=== PATIENT | female | born 1960 | race Caucasian/White ===

== ENCOUNTER 2021-10-20 10:04 | Outpatient (CLI) | payer OTHER, SELFPAY ==
--- NOTE | 2021-10-20 11:00 | CRLHL7_ITS ---
For Patients: As a result of the Century Cures Act, medical imaging exams and procedure reports are released immediately into your electronic medical record. You may view this report before your referring provider. If you have questions, please contact your health care provider. INDICATION: Fallopian tube cancer follow-up, history of breast cancer TECHNIQUE: CT chest, abdomen and pelvis acquired with IV contrast. COMPARISON: CT chest abdomen pelvis 07/04/2021 FINDINGS: Chest: Cardiovascular structures: Heart size is normal. Thoracic aorta and main pulmonary artery are normal in caliber. Mediastinum and kiana: No mass or adenopathy. Lungs: Clear. Pleura and pericardium: No effusions. Chest wall and axilla: No mass or adenopathy. Bones: Unremarkable for age. Abdomen and Pelvis: Liver: Stable numerous hepatic cysts measuring up to 5.2 centimeters. Spleen: Unremarkable. Pancreas: Unremarkable. Gallbladder and bile ducts: Unremarkable. Kidneys: Stable sub centimeter hypodense lesion within the left kidney, likely cyst. Unremarkable. Adrenal glands: Unremarkable. GI tract: Diverticulosis. Appendix is normal. Vascular structures: Unremarkable. Lymph nodes: Unremarkable. Miscellaneous: Postsurgical changes along the anterior abdominal wall. A few supraumbilical small ventral midline abdominal wall hernias , both of which contain mesenteric fat and 1 which the transverse colon abuts. Pelvic Organs: Postsurgical changes of hysterectomy and BSO. Bones: Unremarkable for age. IMPRESSION: Stable abdomen and pelvis CT from July 04, 2021. Please note that all CT scans at this facility use dose modulation, iterative reconstruction, and/or weight-based dosing when appropriate to reduce radiation dose to as low as reasonably achievable. Dictated by Doris Marie MD @ 10/21/2021 3:25:10 PM (Electronically Signed)
== END 2021-10-20 10:05 | disposition home or self-care (01) ==
PROVIDERS: PCP Family Medicine; Visit Provider Internal Medicine Hematology & Oncology
DX: C57.01 Malignant neoplasm of right fallopian tube (principal); C50.912 Malignant neoplasm of unspecified site of left female breast
CPT/HCPCS: 71260; 74177; Q9967

== ENCOUNTER 2021-10-25 08:17 | Outpatient (RCR) | payer OTHER, SELFPAY ==
--- OUTSIDE RECORDS SUMMARY | 2021-10-13 09:27 | XMS_ITS | Continuity of Care Document ---
:1960 Author Allergies, Adverse Reactions, Alerts Allergen Type Severity Reaction Last Updated Verified Status Sulfa drugs Allergy Mild NAUSEA January Yes Active VOMITING 2020 Social History Smoking Status Status Start Date End Date Date of Observat ion Never smoked tobacco February 8:03am (finding) Observation Status Observation Response Date of Response History provided by Patient September 18, 2017 2:02p m Where do you live? Own home/apt September 18, 2017 2:02p m With whom do you live? 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 Encounter for screening for Active COVID-19 S/P total knee arthroplasty Active Medications Medication Status Dose Units Route Directions Qty Days Start End Ins tructions Date Date Anastrozole Active 1 MG PO Daily 90 90 Februar (Arimidex) 1 y , Mg TAB 2020 11:04am Calcium/Marianne Active 1 TAB PO Twice Daily 180 90 Februar min D With Meals , (Calcium 2020 Carbonate/Vi 11:04am tamin D) 600 Mg/400 Unit TAB Fluoxetine Active 10 MG PO Daily Hcl Gabapentin Active 100 MG PO Three Times 90 August A Day 2021 11:52am Levothyroxin Active 125 MCG PO Daily 30 e Sodium Lorazepam Active 0.5-1 MG PO Every 4 PRN Hours as Nausea/vomi ti needed ng Magnesium Active 400 MG PO Twice A Day 100 Decembe Oxide r 2020 4:02pm Multivitamin Active 1 TAB PO Daily 100 s (Multivitami n/Minerals) TAB Naproxen Active 1 TAB PO As Needed Sodium-Diphe nhydramin (Aleve Pm 220-25 Mg) 1 Tab TAB Omeprazole Active 40 MG PO Daily 30 Prochlorpera Active 10 MG PO Every 8-12 P RN zine Maleate Hours as Naus ea/vomiti needed ng Triease Active 1 CAP PO Daily Contains Seasonal lavender, peppermint and lemon oils. Xeo Brett Oil Active 2 CAP PO Daily Acetaminophe Disconti 1-2 TAB PO Every 4 October n/Hydrocodon nued Hours as , , e Bitart needed 2015 2015 (Hydrocodone 1:38pm 2:26pm -Acetaminoph en) 5 Mg/325 Mg TAB Acetaminophe Disconti 1 - 2 TAB PO Q4-6H Prn January n/Hydrocodon nued , ry e Bitart 2010, (Hydrocodone 10:01am 2012 -Acetaminoph 8:01am en) 5 Mg/500 Mg TAB Amoxicillin Disconti 2 GRAMS PO Once 4 Apruar 4 tabs (2 grams) by mouth 1 hour prior to dental nued y , y appointment 2017, 9:24am 2020 10:20a m Amoxicillin Disconti 2 GRAMS PO Once 4 4 tabs (2 grams) by mouth 1 hour prior to dental nued er ry appointment , 2015 1:20pm 9:24am Amoxicillin Disconti 2 GRAMS PO Once 4 Decembe August 4 t abs (2 grams) by mouth 1 hour prior to dental nued r , , appointment 2015 2016 11:08am 2:11pm Apixaban Disconti 2.5 MG PO Twice A Day 60 Decemb (Eliquis) nued er 2.5 Mg TAB 2020 8:47am Aspirin Disconti 325 MG PO Twice A Day September Buffered nued , , (2017 Carb-Mag 2:49pm 9:06am (Bufferin) 325 Mg TAB Aspirin Disconti 325 MG PO Twice A Day 60 October Buffered nued , (Nishant 2015 2nd, Carb-Mag 1:38pm 2015 (Buffered 10:02a Aspirin) 325 m Mg TAB Celecoxib Disconti 200 MG PO Twice A Day September nued , 2017 2018 2:49pm 9:06am Celecoxib Disconti 200 MG PO Twice A Day October Septem nued 1st, erin 2016 2nd, 1:38pm 2015 10:02a m Ciprofloxaci Disconti 500 MG PO Twice A Day January brua n Hcl nued 5th, ry (Cipro) 500 2010, Mg TAB 10:00am 2012 8:01am Docusate Disconti 100 MG PO Twice A Day October Sodium nued as needed , , (Docqlace) 2015 2015 100 Mg CAP 12:20pm 2:26pm Dronabinol Disconti 5 MG OR Twice A Day 60 21 May Raghavendra h nued , , 2021 2021 9:16am 8:59am Fluoxetine Disconti 20 MG PO Daily August Hcl (Prozac) nued , 20 Mg CAP 2017 2:20pm Fluoxetine Disconti 10 MG PO Daily Septem Hcl (Prozac) nued erin 10 Mg CAP 2015 10:02a m Fluticasone Disconti 1 PUFF INH Daily Octobe Propionate nued r 2nd, (Flovent 2015 Diskus) 50 10:12a Mcg AER m Hydrocodone- Disconti 1 TAB PO Every 6 Decembe Januar Acetaminophe nued Hours as r , y n needed 2019, (Hydrocodone 11:08am 2020 Bitartrate/A 10:20a c 5-325 Mg) m 1 Tab TAB Hydroxyzine Disconti 25-50 MG PO Every 3 September Pamoate nued Hours as , , needed 2017 2017 2:49pm 10:39a m Hydroxyzine Disconti 25-50 MG PO Every 3 October Pamoate nued Hours as , , needed for 2015 2015 Analgesic 1:38pm 2:26pm Enhancement Lorazepam Disconti 0.5-1 MG PO Every 4 January Octobe [place] N nued Hours as , r Nausea/vomi ti needed for 2020, ng Nausea/Vomit 3:43pm 2020 ing 9:10am Magnesium Disconti 400 MG PO Twice A Day November Decemb Oxide nued , er 2020, 2:35pm 2020 4:02pm Methylpredni Disconti 1 TAB PO As Directed [facility] DIRECTED solone nued y , , ON PACKAGE (Medrol 2021 2021 Dosepak) 4 9:33am 8:59am Mg ELLIOTT Methylpredni Disconti 1 TAB PO As Directed August DIRECTED solone nued , , ON PACKAGE (Medrol 2016 2016 Dosepak) 4 9:41am 11:36a Mg ELLIOTT m Metronidazol Disconti 500 MG PO Three Times January brua e nued A Day , ry 2010, 10:00am 2012 8:01am Montelukast Disconti 10 MG PO Bedtime as Decemb Sodium nued needed er (Singulair) , 10 Mg TAB 2015 10:33a m Multiple Disconti 1 HER PO Daily Decemb Vitamins W/ nued er Minerals , (Multi For 2016 Her) For Her 10:33a CAP m Oxycodone Disconti 2.5-1 MG PO Every September Hcl nued 0 Hours as , , needed 2017 2017 2:49pm 10:39a m Pegfilgrasti Disconti 6 MG SC Every April m-Jmdb nued Days , , (Fulphila) 2021 Mg/0.6 Ml 5:15pm 8:59am INJ Prochlorpera Disconti 10 MG PO Every 8-12 January obe PRN zine Maleate nued Hours as , r Naus ea/vomiti needed for 2020, ng Nausea/Vomit 3:43pm 2020 ing 9:10am Xeo [place] Disconti 2 CAPSULE PO Daily August nued 2017 2:23pm Immunizations Immunization Event Date Not Given Dose Bridge In[employer] Lot Vac cine Reason Number Number Informatio n Statement (VIS) Deta il COVID-19 Moderna June 30, 2020 COVID-19 Moderna July 28, 2020 Influenza January 202019 Tetanus/Diptheri September 14, 1 a 2004 Tdap November 26, (adolescent/adul 2014 t) Medical Equipment Device Date Implanted Device Details PowerPort M.R.I. Implantable February 20, 2021 BRANNON: [id number] Port Issuing Agency: [employer] Device Id: [id number] Expiration Date: 06-23-29 Lot Number: [id number] Advance Directives Advance Directive Response Recorded Date/Time Does Pt have Health Care No June 17, 2012 7:49am Directive? Has patient completed a No February 20 8:03am Health Care Directive? Insurance Providers Guarantor Edmar Morejon Address [address] [place] [id number] Contact Info. Home Phone: CELL Payer Policy Id Coverage Subscriber's Subscriber Effective Expira tion Id Name Id Date Date [facility] [id number] Edmar Morejon Plan of Treatment Future Tests Future scheduled test information is unavailable Pending Tests Pending diagnostic test information is unavailable Future Visits Future appointment information is unavailable Referrals to Other Providers Reason for Referral Start Provider Provider Contact Provider Address Referral Date Information Deandra Greer Phone: [facility] Sara Chand MD [address] [place] [address] [phone] Future Procedures Future procedure information is unavailable Future Medications Future medication information is unavailable Patient Instructions Aspirin (By mouth) Hydroxyzine (By mouth) Oxycodone, Rapid Release (By mouth) Celecoxib (By mouth) Knee Replacement (DC) Knee Replacement (DC)
[2021-10-20 10:41] LABS: Basophils Percent Auto 0.5 % (0.0-3.0); Eosinophils Percent Auto 2.6 % (0.0-7.0); Hematocrit 38.1 % (33.0-51.0); Hemoglobin* 12.3 gm/dL (12.0-16.0); Lymphocytes Percent Auto 23.1 % (20-44); Mean Corpuscular HGB Conc 32 gm/dL (32-36); Mean Corpuscular Hemoglobin 31 pg (26-34); Mean Corpuscular Volume 97 fL (80-100); Monocytes Percent Auto 11.1 % (0.0-11.0); Neutrophils Percent Auto 62.7 % (42.0-72.0); Platelet Count* 188 K/uL (140-440); RDW Coefficient of Variation % 13.4 % (11.5-15.5); Red Blood Count 3.93 m/uL (4.00-5.20); White Blood Count* 4.16 K/uL (4.50-11.00)
[2021-10-20 10:47] LABS: Slide Review Reflex No
[2021-10-20 10:52] LABS: Chloride* 106 mmol/L (96-114); Sodium* 138 mmol/L (135-149)
[2021-10-20 10:55] LABS: Alanine Aminotransferase* 20 U/L (4-35); Alkaline Phosphatase* 131 U/L (40-150); Aspartate Amino Transferase* 26 U/L (12-35); Bilirubin Total* 0.3 mg/dL (0.1-1.5); Blood Urea Nitrogen* 12 mg/dL (7-30); Carbon Dioxide* 30 mmol/L (20-32); Creatinine* 0.6 mg/dL (0.5-1.5); Est. Creatinine Clearance* 42.44; Estimated Glomerular Filt Rate 102.06; Glucose* 90 mg/dL (60-115); Total Protein* 6.7 g/dL (6.0-8.3)
[2021-10-20 10:56] LABS: Calcium* 8.8 mg/dL (8.4-10.6)
[2021-10-20] MEDS: HEPARIN 500 UNIT/5 ML SYRINGE IVF (11:50)
[2021-10-20] MEDS: SODIUM CHLORIDE 0.9 % (FLUSH) 10 ML SYRINGE IVF (11:50)
== END 2021-11-19 23:59 | disposition home or self-care (01) ==
LOC: CCIC 08:17
PROVIDERS: Internal Medicine Hematology & Oncology; PCP Family Medicine; Visit Provider Internal Medicine Medical Oncology
DX: C57.01 Malignant neoplasm of right fallopian tube (principal)
CPT/HCPCS: 36415; 36591; 80053; 85025; 99212; 99215; J1642

== ENCOUNTER 2022-01-18 09:56 | Outpatient (CLI) | payer OTHER, SELFPAY ==
--- NOTE | 2022-01-18 11:00 | CRLHL7_ITS ---
For Patients: As a result of the Century Cures Act, medical imaging exams and procedure reports are released immediately into your electronic medical record. You may view this report before your referring provider. If you have questions, please contact your health care provider. Indication: Malignant neoplasm of unspecified fallopian tube Technique: Postcontrast CT chest, abdomen and pelvis. 100 cc Isovue 370 intravenous contrast. Please note that all CT scans at this facility use dose modulation, iterative reconstruction, and/or weight-based dosing when appropriate to reduce radiation dose to as low as reasonably achievable. Comparison: 10/20/2021 Findings: In the chest, right-sided Port-A-Cath is present. The thoracic inlet is normal with stable subcentimeter lymph nodes. Stable upper limits of normal right precarinal lymph node measuring 1 cm. No enlarged hilar or axillary lymph nodes. Postop changes to the left axilla and left breast. No pleural or pericardial effusion is present. Stable focal area of scarring within the superior segment of the right lower lobe and within the anterior aspect of the right upper lobe. No suspicious pulmonary nodule. No infiltrate or edema. No pneumothorax. No fracture. No destructive osseous lesion. In the abdomen, stable benign intrahepatic cysts are present. Gallbladder normal. No calcified gallstones. No biliary obstruction. Normal pancreas and spleen. The adrenal glands are normal. No hydronephrosis or solid renal mass. Incidental extrarenal pelvis noted bilaterally. Subcentimeter left renal cortical cyst. Normal subcentimeter retroperitoneal lymph nodes. No mesenteric adenopathy. Stable appearance of the anterior abdominal wall above the umbilicus with several small hernia defects. Stable subcentimeter nodules within the anterior mesenteric fat. The stomach appears normal. No small bowel obstruction. In the pelvis, there are postoperative changes of BISHNU/BSO, as before. No pelvic free fluid. Bladder normal. No bowel obstruction. Mild diverticulosis. No diverticulitis. Normal appendix. The ureters are normal. No pelvic or inguinal adenopathy. Degenerative facet arthropathy lower lumbar spine with slight degenerative anterolisthesis of L4 on L5. No fracture. Impression: Stable subcentimeter mesenteric lymph nodes throughout the abdomen. No enlarged lymph nodes in the chest, abdomen or pelvis. Stable upper limits of normal lymph node in the right precarinal space. No suspicious pulmonary nodule. Benign intrahepatic cysts without suspicious hepatic lesion. Mild colonic diverticulosis. Please note that all CT scans at this facility use dose modulation, iterative reconstruction, and/or weight-based dosing when appropriate to reduce radiation dose to as low as reasonably achievable. Dictated by Jamie Casey MD @ 01/18/2022 12:40:18 PM (Electronically Signed)
== END 2022-01-18 09:57 | disposition home or self-care (01) ==
LOC: CT 09:56
PROVIDERS: PCP Family Medicine; Visit Provider Internal Medicine Hematology & Oncology
DX: C57.00 Malignant neoplasm of unspecified fallopian tube (principal)
CPT/HCPCS: 71260; 74177; Q9967

== ENCOUNTER 2022-04-17 09:05 | Outpatient (CLI) | payer OTHER, SELFPAY ==
--- NOTE | 2022-04-17 10:00 | CRLHL7_ITS ---
For Patients: As a result of the Century Cures Act, medical imaging exams and procedure reports are released immediately into your electronic medical record. You may view this report before your referring provider. If you have questions, please contact your health care provider. Indication: Carcinoma of fallopian tube, breast CA Technique: Postcontrast CT chest, abdomen and pelvis. 104 cc Isovue 370 intravenous contrast. Please note that all CT scans at this facility use dose modulation, iterative reconstruction, and/or weight-based dosing when appropriate to reduce radiation dose to as low as reasonably achievable. Comparison: 01/18/2022 Findings: In the chest, there is a right chest wall Port-A-Cath. Postoperative changes to the left breast noted along with left axillary lymph node dissection. No enlarged intrathoracic lymph nodes are present. There is no pleural or pericardial effusion. Lungs are clear. No pulmonary nodule. No pleural effusion or infiltrate. No pulmonary edema or pneumothorax. Chronic wedging of 1 of the lower thoracic vertebral bodies. Multilevel degenerative disc disease. No acute fracture or suspicious osseous lesion. No pulmonary embolism or aortic aneurysm. In the abdomen, multiple simple intrahepatic cysts are similar. No suspicious hepatic lesion. The spleen is mildly prominent, as before. The pancreas is normal. Normal adrenal glands. No solid renal mass. Extrarenal pelvis noted bilaterally. Normal stomach. No small bowel obstruction. Anterior abdominal wall hernia containing fat again noted measuring 2.4 cm. A loop of transverse colon extends into the base of the hernia, unchanged. Subcentimeter retroperitoneal lymph nodes are similar. In the pelvis, postoperative changes of hysterectomy noted along with bilateral salpingo-oophorectomy. The ureters are within normal limits. No enlarged pelvic sidewall or inguinal lymph nodes. Postop changes to the midline of the lower abdominal wall. No postop fluid collection or abscess. No bowel obstruction. No diverticulitis. Normal appendix and terminal ileum. Bladder normal. Impression: Similar appearance of upper limits of normal retroperitoneal lymph nodes in the upper abdomen, measuring up to 1 centimeter. Stable simple intrahepatic cysts and mild splenomegaly. No suspicious pulmonary nodule. Stable upper limits of normal precarinal lymph node. Overall, no significant change compared to the prior exam. Please note that all CT scans at this facility use dose modulation, iterative reconstruction, and/or weight-based dosing when appropriate to reduce radiation dose to as low as reasonably achievable. Dictated by Jaime Casey MD @ 04/17/2022 1:25:59 PM (Electronically Signed)
== END 2022-04-17 09:06 | disposition home or self-care (01) ==
LOC: CT 09:05
PROVIDERS: PCP Family Medicine; Visit Provider Clinical Nurse Specialist
DX: C57.00 Malignant neoplasm of unspecified fallopian tube (principal); K76.89 Other specified diseases of liver; C50.912 Malignant neoplasm of unspecified site of left female breast
CPT/HCPCS: 71260; 74177; Q9967

== ENCOUNTER 2022-04-19 15:00 | Outpatient (RCR) | payer OTHER, SELFPAY ==
[2021-11-24 13:54] VITALS: BP 135/83; PULSE 92; RESP 16; TEMP 37.1; O2SAT 96
[2021-11-24] MEDS: SODIUM CHLORIDE 0.9 % (FLUSH) 10 ML SYRINGE IVF (16:07)
[2021-11-24] MEDS: HEPARIN 500 UNIT/5 ML SYRINGE IVF (16:07)
[2021-12-22] MEDS: HEPARIN 500 UNIT/5 ML SYRINGE IVF (14:27)
[2022-01-18 10:25] LABS: Basophils Percent Auto 0.6 % (0.0-3.0); Eosinophils Percent Auto 3.2 % (0.0-7.0); Hematocrit 36.6 % (33.0-51.0); Hemoglobin* 11.8 gm/dL (12.0-16.0); Immature Granulocytes Abs Auto 0.01 K/uL (0.00-0.30); Mean Corpuscular HGB Conc 32 gm/dL (32-36); Mean Corpuscular Hemoglobin 31 pg (26-34); Mean Corpuscular Volume 95 fL (80-100); Monocytes Percent Auto 12.4 % (0.0-11.0); Neutrophils Percent Auto 61.5 % (42.0-72.0); Platelet Count* 199 K/uL (140-440); RDW Coefficient of Variation % 12.9 % (11.5-15.5); Red Blood Count 3.85 m/uL (4.00-5.20); White Blood Count* 3.46 K/uL (4.50-11.00)
[2022-01-18 10:28] LABS: Slide Review Reflex No
[2022-01-18 10:42] LABS: Albumin* 4.1 g/dL (3.3-5.0); Chloride* 105 mmol/L (96-114); Sodium* 138 mmol/L (135-149)
[2022-01-18 10:43] LABS: Potassium* 3.9 mmol/L (3.6-5.1)
[2022-01-18 10:45] LABS: Alanine Aminotransferase* 20 U/L (4-35); Alkaline Phosphatase* 148 U/L (40-150); Aspartate Amino Transferase* 29 U/L (12-35); Bilirubin Total* 0.3 mg/dL (0.1-1.5); Blood Urea Nitrogen* 15 mg/dL (7-30); Carbon Dioxide* 27 mmol/L (20-32); Creatinine* 0.6 mg/dL (0.5-1.5); Estimated Glomerular Filt Rate 101 ml/min; Total Protein* 7.1 g/dL (6.0-8.3)
[2022-01-18 10:46] LABS: Calcium* 8.9 mg/dL (8.4-10.6); Glucose* 92 mg/dL (60-115)
[2022-02-20] MEDS: HEPARIN 500 UNIT/5 ML SYRINGE IVF (14:30)
[2022-02-20] MEDS: SODIUM CHLORIDE 0.9 % (FLUSH) 10 ML SYRINGE IVF (14:30)
--- NOTE | 2022-03-21 16:17 | ONC.NURNOTE ---
Anastrozole refill faxed to [facility]
[2022-04-17 09:24] LABS: Basophils Percent Auto 0.5 % (0.0-3.0); Eosinophils Percent Auto 2.6 % (0.0-7.0); Hemoglobin* 12.1 gm/dL (12.0-16.0); Lymphocytes Percent Auto 24.3 % (20-44); Mean Corpuscular HGB Conc 33 gm/dL (32-36); Mean Corpuscular Hemoglobin 30 pg (26-34); Mean Corpuscular Volume 92 fL (80-100); Neutrophils Percent Auto 61.6 % (42.0-72.0); Platelet Count* 192 K/uL (140-440); RDW Coefficient of Variation % 13.7 % (11.5-15.5); Red Blood Count 4.01 m/uL (4.00-5.20); White Blood Count* 3.82 K/uL (4.50-11.00)
[2022-04-17 09:26] LABS: Slide Review Reflex No
[2022-04-17 09:38] LABS: Albumin* 4.2 g/dL (3.3-5.0); Chloride* 107 mmol/L (96-114); Sodium* 141 mmol/L (135-149)
[2022-04-17 09:41] LABS: Alkaline Phosphatase* 117 U/L (40-150); Aspartate Amino Transferase* 24 U/L (12-35); Bilirubin Total* 0.4 mg/dL (0.1-1.5); Carbon Dioxide* 29 mmol/L (20-32); Creatinine* 0.6 mg/dL (0.5-1.5); Estimated Glomerular Filt Rate 101 ml/min; Total Protein* 7.3 g/dL (6.0-8.3)
[2022-04-17 09:42] LABS: Alanine Aminotransferase* 19 U/L (4-35); Blood Urea Nitrogen* 15 mg/dL (7-30); Calcium* 9.1 mg/dL (8.4-10.6); Glucose* 89 mg/dL (60-115)
[2022-04-17] MEDS: SODIUM CHLORIDE 0.9 % (FLUSH) 10 ML SYRINGE IVF (11:00)
[2022-04-17] MEDS: HEPARIN 500 UNIT/5 ML SYRINGE IVF (11:00)
== END 2022-05-23 23:59 | disposition home or self-care (01) ==
LOC: CCIC 15:00
PROVIDERS: Clinical Nurse Specialist; Internal Medicine Hematology & Oncology; PCP Family Medicine; Referring Provider Family Medicine; Visit Provider Internal Medicine Medical Oncology
DX: C57.01 Malignant neoplasm of right fallopian tube (principal); C50.912 Malignant neoplasm of unspecified site of left female breast; Z17.0 Estrogen receptor positive status [ER+]; Z79.811 Long term (current) use of aromatase inhibitors
CPT/HCPCS: 36415; 36591; 80053; 85025; 99211; 99212; 99214; 99215; J1642

== ENCOUNTER 2022-07-26 09:32 | Outpatient (CLI) | payer OTHER, SELFPAY ==
--- NOTE | 2022-07-26 10:00 | CRLHL7_ITS ---
For Patients: As a result of the Century Cures Act, medical imaging exams and procedure reports are released immediately into your electronic medical record. You may view this report before your referring provider. If you have questions, please contact your health care provider. INDICATION: Carcinoma of fallopian tube. TECHNIQUE: CT chest, abdomen and pelvis acquired with 98 cc Omnipaque 350 IV contrast. COMPARISON: 04/17/2022. 01/18/2022 and 11/09/2021 FINDINGS: CHEST Lungs and pleura: Lungs are clear. No suspicious nodules or infiltrates. No effusions, thickening, or pneumothorax. Heart and vasculature: Heart size is normal. Thoracic aorta and pulmonary artery are normal in caliber. Lymph node/mediastinum: Newly enlarged posterior mediastinal lymph nodes measuring 1.5 and 1.2 centimeters (series 2 images 59 and 65). Chest wall: Normal. Bones: No suspicious bone lesions. Degenerative spondylosis. Unchanged mild anterior height loss of T7 and T8. ABDOMEN AND PELVIS: Liver: Unchanged hepatic cysts. No suspicious hepatic lesion Gallbladder and bile ducts: Unremarkable. Pancreas: Unremarkable. Spleen: Borderline splenomegaly, unchanged. Adrenal glands: Unremarkable. No masses. Kidneys: Normal in caliber. No suspicious masses. GI tract: No bowel obstruction or focal bowel wall thickening. Normal appendix. Colonic diverticulosis without evidence of acute diverticulitis Vasculature: Scattered atherosclerosis. Mesenteric arteries are patent. Lymph nodes: Multiple prominent and mildly enlarged upper retroperitoneal lymph nodes, mildly enlarged compared to prior. For example, 12 millimeter aortocaval node previously measured 9 millimeters in March 2022 (series 6, image 72). Omentum/peritoneum/retroperitoneum/abdominal wall: No masses or infiltration. No free air or significant free fluid. Small fat containing paraumbilical hernia Pelvic organs: Status post hysterectomy. No suspicious adnexal mass Bones: No suspicious bone lesions. IMPRESSION: Newly enlarged posterior mediastinal lymph nodes adjacent to the descending thoracic aorta. Enlarging prominent and mildly enlarged upper retroperitoneal lymph nodes. Findings concerning for disease progression Please note that all CT scans at this facility use dose modulation, iterative reconstruction, and/or weight-based dosing when appropriate to reduce radiation dose to as low as reasonably achievable. Dictated by Deepak Mckeon MD @ 07/30/2022 7:57:07 AM (Electronically Signed)
[2022-07-26 10:11] LABS: Basophils Percent Auto 0.7 % (0.0-3.0); Eosinophils Percent Auto 3.6 % (0.0-7.0); Hematocrit 39.3 % (33.0-51.0); Hemoglobin* 12.7 gm/dL (12.0-16.0); Lymphocytes Percent Auto 23.1 % (20-44); Mean Corpuscular HGB Conc 32 gm/dL (32-36); Mean Corpuscular Hemoglobin 30 pg (26-34); Mean Corpuscular Volume 92 fL (80-100); Monocytes Percent Auto 10.5 % (0.0-11.0); Neutrophils Percent Auto 62.1 % (42.0-72.0); Platelet Count* 239 K/uL (140-440); RDW Coefficient of Variation % 13.9 % (11.5-15.5); Red Blood Count 4.28 m/uL (4.00-5.20); Slide Review Reflex No; White Blood Count* 4.11 K/uL (4.50-11.00)
[2022-07-26 10:31] LABS: Albumin* 4.1 g/dL (3.3-5.0); Chloride* 108 mmol/L (96-114); Potassium* 4.1 mmol/L (3.6-5.1); Sodium* 139 mmol/L (135-149)
[2022-07-26 10:34] LABS: Alanine Aminotransferase* 20 U/L (4-35); Alkaline Phosphatase* 124 U/L (40-150); Aspartate Amino Transferase* 27 U/L (12-35); Bilirubin Total* 0.4 mg/dL (0.1-1.5); Blood Urea Nitrogen* 13 mg/dL (7-30); Carbon Dioxide* 24 mmol/L (20-32); Creatinine* 0.6 mg/dL (0.5-1.5); Estimated Glomerular Filt Rate 101 ml/min; Glucose* 85 mg/dL (60-115); Total Protein* 7.6 g/dL (6.0-8.3)
== END 2022-07-26 09:33 | disposition home or self-care (01) ==
LOC: CT 09:34
PROVIDERS: PCP Family Medicine; Visit Provider Internal Medicine Medical Oncology
DX: C57.00 Malignant neoplasm of unspecified fallopian tube (principal); R59.9 Enlarged lymph nodes, unspecified
CPT/HCPCS: 36415; 71260; 74177; 80053; 82565; 85025; Q9967

== ENCOUNTER 2022-10-06 18:46 | Emergency (ER) | payer OTHER, SELFPAY ==
[2022-10-06 18:59] VITALS: BP 153/89; PULSE 98; RESP 18; TEMP 36.8; O2SAT 98; BMI 41.0
--- NOTE | 2022-10-06 20:19 | ED_ITS ---
HPI - General Adult General Chief complaint: Nausea/Vomiting Stated complaint: Vomiting post cancer treatment Time Seen by Provider: 10/06/22 20:08 History of Present Illness HPI narrative: This 61-year-old female is undergoing chemotherapy for breast cancer. She had chemotherapy a couple days ago and now has nausea and vomiting. Her nausea medicine was taken today but did not help with these symptoms. She does not report any fevers. Related Data Home Medications Medication Instructions Recorded Confirmed fluoxetine 10 mg capsule 10 mg PO DAILY 10/16/21 10/01/22 levothyroxine 125 mcg tablet 125 mcg PO DAILY 10/16/21 10/01/22 magnesium oxide 400 mg (241.3 mg 400 mg PO BID 10/16/21 10/01/22 magnesium) tablet multivitamin 1 tab PO DAILY 10/16/21 10/01/22 naproxen 220 mg-diphenhydramine 25 1 tab PO HS PRN 10/16/21 10/01/22 mg tablet (Aleve PM) omeprazole 40 mg capsule,delayed 40 mg PO DAILY 10/16/21 10/01/22 release gabapentin 100 mg capsule 100 mg PO .HS PRN 08/30/22 10/03/22 vitamin B complex (B 1 tab PO QDAY 10/01/22 10/03/22 Complex-Vitamin B12 tablet) Previous Rx's Medication Instructions Recorded anastrozole 1 mg tablet 1 mg PO DAILY #90 tabs 06/21/22 calcium carbonate 600 mg-vitamin 1 tab PO BIDWM #180 tabs 06/25/22 D3 10 mcg (400 unit) tablet ondansetron HCl 4 mg tablet 4 mg PO Q8H PRN nausea and 08/30/22 vomiting #60 tabs prochlorperazine maleate 5 mg 5 mg PO TID PRN nausea and 08/30/22 tablet (Compazine) vomiting #60 tabs lorazepam 0.5 mg tablet 0.5 mg PO BID PRN nausea or 09/12/22 insomnia #20 tabs Allergies Allergy/AdvReac Type Severity Reaction Status Date / Time Sulfa (Sulfonamide Allergy Mild NAUSEA Verified 10/03/22 08:16 Antibiotics) Review of Systems Status of ROS: Reports: 10 or more systems reviewed and unremarkable except as noted in History and below Narrative: Constitutional: No fevers, no weight gain or loss. Eyes: No discharge. No vision changes. HENT: No congestion, no sore throat, no ear pain. Cardiovascular: No chest pain, no palpitations. Respiratory: No shortness of breath, no wheezes, no cough. Gastrointestinal: No abdominal pain, no diarrhea. Nausea and vomiting after chemotherapy. Genitourinary: No dysuria, no hematuria. Musculoskeletal: Normal range of motion. Skin: No rashes, no pruritis. Neurological: No dizziness, weakness, sensory change, speech change. Endo/Heme/Allergies: No bruising or bleeding. No polydipsia. Pysch: no suicidality, no anxiety, no insomnia. All other systems reviewed and are negative. [facility] Medical History (Updated 10/06/22 @ 22:18 by Lupillo Portillo MD) Carcinoma of fallopian tube (2020) ?C57.00 - Malignant neoplasm of unspecified fallopian tube (ICD-10) Infiltrating lobular carcinoma of left breast in female (~03/2020) ?C50.912 - Malignant neoplasm of unspecified site of left female breast (ICD- 10) Osteopenia ?M85.80 - Other specified disorders of bone density and structure, unspecified site (ICD-10) Hypothyroidism ?E03.9 - Hypothyroidism, unspecified (ICD-10) Postoperative complication ?T81.9XXA - Unspecified complication of procedure, initial encounter (ICD-10) Counseling regarding advanced directives (10/10/17) ?Z71.89 - Other specified counseling (ICD-10) Diarrhea ?R19.7 - Diarrhea, unspecified (ICD-10) Surgical History (Updated 09/06/22 @ 12:22 by Akin Terrazas RN) Status post left breast lumpectomy ?Z98.890 - Other specified postprocedural states (ICD-10) S/P BISHNU-BSO ?Z90.710 - Acquired absence of both cervix and uterus (ICD-10) ?Z90.722 - Acquired absence of ovaries, bilateral (ICD-10) ?Z90.79 - Acquired absence of other genital organ(s) (ICD-10) Status post total knee replacement ?Z96.659 - Presence of unspecified artificial knee joint (ICD-10) Social History Smoking Status: Never smoker How often do you have a drink containing alcohol: never How often do you have six or more drinks on one occasion: Never AUDIT-C Alcohol total score: 0 Non-prescribed substance use: denies use Caffeine: Yes (2 cups coffee per day) Are you using contraception or practicing any form of control: No Exam Narrative: Exam Narrative: Constitutional: Well-developed, well-nourished, no acute distress. HEENT: Normocephalic, atraumatic. Neck: Normal range of motion. Nontender. Supple. Heart: Regular. No murmurs. Normal rate. Intact distal pulses. Lungs: Clear to auscultation. No chest discomfort. No wheezes, rhonchi, or rales. Abdomen: Normal bowel sounds. Nontender. No rebound tenderness. Genitalia: Deferred. Back: No midline tenderness. Normal range of motion. Extremities: Normal range of motion. No injury. Skin: Intact. No rash. Warm. No erythema or pallor. Neurologic: No altered sensation. No weakness. Alert and oriented. Psychiatric: No suicidality. No anxiety or depression. No insomnia. Nursing notes and vitals signs are reviewed. Const: Vital Signs, click to edit/add: Vital Signs - 24 hr 10/06/22 18:59 Temperature 98.3 F Pulse Rate [Right Pulse Oximeter] 98 Respiratory Rate 18 Blood Pressure [Le ft Upper Arm] 153/89 H Pulse Oximetry 98 Oxygen Delivery Me thod Room Air Course Vital Signs Vital signs: Initial Vital Signs Temperature 98.3 F 10/06/22 18:59 Temperature Source Temporal Artery Scan 10/06/22 18:59 Pulse Rate 98 10/06/22 18:59 Respiratory Rate 18 10/06/22 18:59 Blood Pressure 153/89 H 10/06/22 18:59 Blood Pressure Mean 110 H 10/06/22 18:59 Blood Pressure Position Sitting 10/06/22 18:59 Pulse Oximetry 98 10/06/22 18:59 Oxygen Delivery Method Room Air 10/06/22 18:59 Vital Signs Temperature 98.3 F 10/06/22 18:59 Pulse Rate 98 10/06/22 18:59 Respiratory Rate 18 10/06/22 18:59 Blood Pressure 153/89 H 10/06/22 18:59 Pulse Oximetry 98 10/06/22 18:59 Oxygen Delivery Method Room Air 10/06/22 18:59 Temperature 98.3 F 10/06/22 18:59 Pulse Rate 98 10/06/22 18:59 Respiratory Rate 18 10/06/22 18:59 Blood Pressure 153/89 H 10/06/22 18:59 Pulse Oximetry 98 10/06/22 18:59 Oxygen Delivery Method Room Air 10/06/22 18:59 Medical Decision Making MDM Narrative Medical decision making narrative: This patient comes in with persistent vomiting and nausea after receiving chemotherapy. She does arrive with normal vital signs. An IV was established through her port where she did receive a L of normal saline and 4 mg of Zofran. This brought sufficient relief to her symptoms. Lab results returned with reassuring findings except she has a notable increase in her white count. She did receive a steroid recently which would account for this. She does not have any fever or other signs of sepsis or infection. She is okay to be discharged home to continue current plans. She did receive a prescription for Zofran. Lab Data Labs: Lab Results 10/06/22 Range/Units 21:15 WBC 28.57 H* (4.50-11.00) K/uL RBC 3.88 L (4.00-5.20) m/uL Hgb 11.7 L (12.0-16.0) gm/dL Hct 35.5 (33.0-51.0) % MCV 92 (80-100) fL MCH 30 (26-34) pg MCHC 33 (32-36) gm/dL RDW Coeff of Sarah 15.8 H (11.5-15.5) % Plt Count 174 (140-440) K/uL Neut % (Auto) 78.2 H (42.0-72.0) % Lymph % (Auto) 3.2 L (20-44) % [place] % (Auto) 1.4 (0.0-11.0) % Eos % (Auto) 0.3 (0.0-7.0) % Baso % (Auto) 0.1 (0.0-3.0) % Neut # (Auto) 22.30 H (1.7-7.0) K/uL Lymph # (Auto) 0.90 (0.90-2.90) K/uL [place] # (Auto) 0.40 (0.00-0.90) K/UL Eos # (Auto) 0.10 (0.00-0.50) K/uL Baso # (Auto) 0.00 (0.00-0.30) K/uL Sodium 132 L (135-149) mmol/L Potassium 3.5 L (3.6-5.1) mmol/L Chloride 102 (96-114) mmol/L Carbon Dioxide 27 (20-32) mmol/L BUN 11 (7-30) mg/dL Creatinine 0.5 (0.5-1.5) mg/dL Estimated Creat Clear 41.90 Estimated GFR 106 ml/min Glucose 97 (60-115) mg/dL Calcium 9.3 (8.4-10.6) mg/dL Discharge Plan Discharge Clinical Impression: Infiltrating lobular carcinoma of left breast in female, Vomiting Patient Disposition: Home, Self-Care Condition: Improved Additional Instructions: Continue current plans. Use medication as needed and directed. Follow up with MD or return if worsening. Prescriptions: No Action gabapentin 100 mg capsule 100 mg PO .HS PRN prochlorperazine maleate [Compazine] 5 mg tablet 5 mg PO TID PRN (Reason: nausea and vomiting) Qty: 60 0RF ondansetron HCl 4 mg tablet 4 mg PO Q8H PRN (Reason: nausea and vomiting) Qty: 60 0RF vitamin B complex [B Complex-Vitamin B12] Tablet 1 tab PO QDAY fluoxetine 10 mg capsule 10 mg PO DAILY levothyroxine 125 mcg tablet 125 mcg PO DAILY magnesium oxide 400 mg (241.3 mg magnesium) tablet 400 mg PO BID multivitamin Tablet 1 tab PO DAILY Aleve PM 220-25 mg tablet 1 tab PO HS PRN omeprazole 40 mg capsule,delayed release(DR/EC) 40 mg PO DAILY anastrozole 1 mg tablet 1 mg PO DAILY Qty: 90 3RF Hold Instructions: per kyle calcium carbonate-vitamin D3 600 mg-10 mcg (400 unit) tablet 1 tab PO BIDWM Qty: 180 0RF lorazepam 0.5 mg tablet 0.5 mg PO BID PRN (Reason: nausea or insomnia) Qty: 20 0RF Rx Instructions: Take if needed for insomnia night after chemo. Take for chemo related nausea if prochlorperazine (compazine) or ondansetron (zofran) ineffective. Avoid taking at the same time as other sedating medications. Follow Up/Referrals: Sara Greer MD [Primary Care Provider] - Stand Alone Forms: [employer] Info Instructions
[2022-10-06] MEDS: ONDANSETRON 2 MG/ML inj 4 MG IVP (21:04)
[2022-10-06] MEDS: 0.9 % SODIUM CHLORIDE 1000 ml 1,000 ML 1200 ML IV (21:04)
[2022-10-06 21:21] LABS: Basophils Percent Auto 0.1 % (0.0-3.0); Eosinophils Percent Auto 0.3 % (0.0-7.0); Hematocrit 35.5 % (33.0-51.0); Hemoglobin* 11.7 gm/dL (12.0-16.0); Immature Granulocytes Pct Auto 16.8 %; Lymphocytes Percent Auto 3.2 % (20-44); Mean Corpuscular HGB Conc 33 gm/dL (32-36); Mean Corpuscular Hemoglobin 30 pg (26-34); Mean Corpuscular Volume 92 fL (80-100); Monocytes Percent Auto 1.4 % (0.0-11.0); Neutrophils Percent Auto 78.2 % (42.0-72.0); Platelet Count* 174 K/uL (140-440); RDW Coefficient of Variation % 15.8 % (11.5-15.5); Red Blood Count 3.88 m/uL (4.00-5.20)
[2022-10-06 21:24] LABS: Slide Review Reflex Yes; White Blood Count* 28.57 K/uL (4.50-11.00)
[2022-10-06 21:41] LABS: Chloride* 102 mmol/L (96-114); Potassium* 3.5 mmol/L (3.6-5.1); Sodium* 132 mmol/L (135-149)
[2022-10-06 21:44] LABS: Blood Urea Nitrogen* 11 mg/dL (7-30); Carbon Dioxide* 27 mmol/L (20-32); Creatinine* 0.5 mg/dL (0.5-1.5); Estimated Glomerular Filt Rate 106 ml/min; Glucose* 97 mg/dL (60-115)
[2022-10-06 21:45] LABS: Calcium* 9.3 mg/dL (8.4-10.6)
[2022-10-06 22:18] LABS: Slide Review Acceptable Review (Acceptable)
== END 2022-10-06 22:34 | disposition home or self-care (01) ==
PROVIDERS: Emergency Provider Emergency Medicine Emergency Medical Services; PCP Family Medicine
DX: R11.10 Vomiting, unspecified (principal); C50.912 Malignant neoplasm of unspecified site of left female breast; Z51.11 Encounter for antineoplastic chemotherapy
CPT/HCPCS: 36415; 80048; 85025; 96374; 99283; 99284; J2405; J7030

== ENCOUNTER 2022-10-26 09:48 | Outpatient (CLI) | payer OTHER, SELFPAY ==
--- NOTE | 2022-10-26 10:15 | CRLHL7_ITS ---
For Patients: As a result of the Century Cures Act, medical imaging exams and procedure reports are released immediately into your electronic medical record. You may view this report before your referring provider. If you have questions, please contact your health care provider. Indication: Port check Technique: Fluoroscopic guided injection of the Port-A-Cath. 8 cc of Omnipaque 350 injected. IMPRESSION: Contrast passed through the catheter into the SVC. It does appear that there is a small fibrin sheath present which prevents aspiration of blood. Dictated by Jaime Casey MD @ 10/26/2022 11:06:19 AM (Electronically Signed)
== END 2022-10-26 09:49 | disposition home or self-care (01) ==
LOC: RAD 09:48
PROVIDERS: PCP Family Medicine; Visit Provider Internal Medicine Hematology & Oncology
DX: Z95.828 Presence of other vascular implants and grafts (principal)
CPT/HCPCS: 76000; Q9967

== ENCOUNTER 2022-11-12 07:22 | Day surgery (SDC) | payer OTHER, SELFPAY ==
--- NOTE | 2022-11-12 08:00 | CRLHL7_ITS ---
For Patients: As a result of the 21st Century Cures Act, medical imaging exams and procedure reports are released immediately into your electronic medical record. You may view this report before your referring provider. If you have questions, please contact your health care provider. Indication: cancer treatment responses, malignant neoplasm of fallopian tube Technique: Postcontrast CT chest, abdomen and pelvis. 95 cc Isovue 370 intravenous contrast. Please note that all CT scans at this facility use dose modulation, iterative reconstruction, and/or weight-based dosing when appropriate to reduce radiation dose to as low as reasonably achievable. Comparison: 08/15/[address]-PET Findings: Left upper chest wall Port-A-Cath device noted. The tip is difficult to assess due to high-density contrast in the SVC. No deep venous thrombosis. Minimal residual thymic tissue in the anterior mediastinum. Mildly prominent left thoracic lymph nodes are present corresponding to hypermetabolic nodes. One measures 8 millimeters, 06/08 and a 2nd measures 8.4 millimeters, 06/12. There is a 3rd enlarged lymph node measuring 1.2 cm, 06/09. Mildly enlarged right distal esophageal lymph nodes are noted measuring up to 1.1 cm. No hiatal hernia. No hilar or axillary adenopathy. Surgical clips within the left breast tissue. Similar appearance of the osseous structures without acute fracture. No pulmonary infiltrate, edema, effusion or pneumothorax. No pulmonary nodule. In the abdomen, simple hepatic cysts are again noted. No suspicious intrahepatic mass. Extrarenal pelvis noted bilaterally. No solid renal mass or hydronephrosis. The spleen is similar. Normal adrenal glands. Normal pancreatic parenchyma. There is a small supraumbilical midline abdominal wall hernia measuring 2.1 cm with mild bowel involvement. No bowel obstruction. No free air or free fluid. Mild atherosclerotic disease. Decreased size of retroperitoneal lymph nodes, now measuring up to 1.4 cm, previously measuring up to 1.8 cm. In the pelvis, the bladder is within normal limits. The uterus and ovaries are absent. No bowel obstruction. Appendix is normal. No enlarged pelvic lymph nodes. No inguinal adenopathy. Facet degeneration L4-5 and L5-S1. No lumbar vertebral body fracture. A few scattered subcentimeter mesenteric lymph nodes noted. No osteonecrosis. Impression: Decreased size of retroperitoneal lymph nodes, now measuring up to 1.4 cm compared to 1.8 cm. Decreased size of left thoracic inlet lymph nodes measuring up to 1.2 cm, previously measuring up to 1.8 cm. Decreased right distal esophageal lymph nodes, measuring up to 1.1 cm, previously measuring up to 1.9 cm. Please note that all CT scans at this facility use dose modulation, iterative reconstruction, and/or weight-based dosing when appropriate to reduce radiation dose to as low as reasonably achievable. Dictated by Jaime Casey MD @ 11/13/2022 1:33:00 PM (Electronically Signed)
[2022-11-12] MEDS: LACTATED RINGERS 1000 ML 1,000 ML 100 ML IV (09:25)
[2022-11-12] MEDS: BUPIVACAINE 0.5% 30 ML INJECTION (09:30)
--- NOTE | 2022-11-12 09:30 | CRLHL7_ITS ---
For Patients: As a result of the Century Cures Act, medical imaging exams and procedure reports are released immediately into your electronic medical record. You may view this report before your referring provider. If you have questions, please contact your health care provider. Indication: Port-A-Cath placement Technique: Single fluoroscopic image of the chest. Fluoroscopic time 77.7 seconds. IMPRESSION: Fluoroscopic guidance for Port-A-Cath adjustment/placement. Dictated by Jaime Casey MD @ 11/12/2022 11:15:04 AM (Electronically Signed)
[2022-11-12 09:37] VITALS: BMI 43.2
[2022-11-12 09:40] VITALS: BP 143/88; PULSE 78; RESP 16; TEMP 36.1; O2SAT 99
[2022-11-12] MEDS: HEPARIN 500 UNIT/5 ML SYRINGE IVF (09:50)
[2022-11-12] MEDS: SODIUM CHLORIDE 0.9 % (FLUSH) 10 ML SYRINGE IVF (09:50)
[2022-11-12] MEDS: CEFAZOLIN 2 GM INJ IVP (10:20)
[2022-11-12] MEDS: LIDOCAINE 1% MDV 20 ML INJECTION (10:30)
--- NOTE | 2022-11-12 11:05 | CRLHL7_ITS ---
For Patients: As a result of the Century Cures Act, medical imaging exams and procedure reports are released immediately into your electronic medical record. You may view this report before your referring provider. If you have questions, please contact your health care provider. INDICATION: Post Port-A-Cath TECHNIQUE: Chest 1 view COMPARISON: 10/26/2022, 07/26/2022 FINDINGS: Left IJ approach Port-A-Cath is present with the tip at the caval atrial junction. No pneumothorax or pleural effusion. IMPRESSION: No pneumothorax. Dictated by Jaime Casey MD @ 11/12/2022 11:50:27 AM (Electronically Signed)
--- NOTE | 2022-11-12 11:08 | PM.GSPRC ---
Operative Note Date of procedure: 11/12/22 Pre-op diagnosis: Metastatic fallopian tube cancer Port-A-Cath malfunction Post-op diagnosis: Same Type of Procedure: Left IJ Port-A-Cath revision Indications: The patient is a 62-year-old female who approximately 2 months ago underwent a left IJ port placement for chemotherapy for metastatic fallopian tube cancer. Unfortunately the port would not aspirate despite tPA dwell. Fluoroscopy revealed it to be in appropriate position and showed that it flushed without difficulty, however it would not draw. Because of inability to confirm appropriate placement by aspiration of blood, the cancer center staff was unwilling to use it and requested revision. Of note, previously on her port placement there was difficulty getting the wire to go to the appropriate position, particularly on the right. I did review her CT scan this morning with the radiologist. It does appear as though she has some narrowing of the IJ on the right side. The left side appears anatomically normal. Procedure Description: After discussing the risks and benefits of the procedure, the patient signed informed consent.? The operative site was marked and the patient was brought to the operating room and placed on the operating table in supine position.? Care was taken to pad the patient's pressure points.?? The patient was then given sedation by anesthesia.?? The operative site was then prepped and draped in the usual sterile fashion.? A time-out was then performed. I began by injecting local anesthetic into the skin and subcutaneous tissue over her neck incision as well as the port site incision. Using a knife I incised the prior incision and dissected down until the port was encountered. The capsule had begun to form, however was not completely encapsulated and I removed both Prolene sutures without difficulty. I was able to identify the catheter. I then made incision at the prior neck incision and carefully dissected down into the subcutaneous fat until the catheter was encountered. Once I encountered this I placed a clamp across it and I then removed the port from its pocket and cut the catheter. The port was discarded. I then pulled the catheter through the neck incision. Then, using fluoroscopy I easily passed the wire through the catheter into the SVC. I then slid the catheter out of the patient and off of the wire and examined it to ensure that it was intact, which it was. I then used the tunneling device to tunnel a new catheter from the pocket in the chest wall to the stab incision in the neck. Then, under fluoroscopy I passed the dilator easily over the wire and through the tract. The wire and dilator were then removed leaving the sheath in the vein. Through this, the catheter was threaded. Using fluoroscopy, the catheter was positioned into the distal SVC. The catheter was noted to flush and aspirate easily. The catheter was then connected to the port. The port was placed in the pocket and secured in place with 2 0 Prolene sutures. It was noted to flush and aspirate easily. This was then locked with heparinized saline. The skin was closed with absorbable suture. Sterile dressings were applied. Instrument sponge and needle counts were correct at the end of the case. The patient was woken and taken to the PACU in stable condition. The patient tolerated the procedure well. Findings: Left IJ PowerPort placed in the low SVC Implants: Power port Anesthesia: MAC Surgeon: Sade Danielson MD Estimated blood loss (mL): 1 Condition: stable Disposition: same day
--- NOTE | 2022-11-12 11:13 | W.ANESCHARGE ---
Anesthesia Charges Start Date/Time Anesthesia Start Date: 11/12/22 Anesthesia Start Time: 10:09 Stop Date/Time Anesthesia Stop Date: 11/12/22 Anesthesia Stop Time: 11:12
[2022-11-12 11:15] VITALS: BP 152/92; PULSE 82; RESP 16; TEMP 36.7; O2SAT 96
[2022-11-12 11:30] VITALS: BP 150/94; PULSE 80; RESP 16; O2SAT 96
[2022-11-12 11:45] VITALS: BP 156/96; PULSE 85; RESP 16; O2SAT 96
== END 2022-11-12 11:55 | disposition home or self-care (01) ==
PROVIDERS: PCP Family Medicine; Visit Provider Surgery
PROC: (CPT 36583; principal; 2022-11-12 09:30)
DX: T82.594A Other mechanical complication of infusion catheter, initial encounter (principal); C57.01 Malignant neoplasm of right fallopian tube; C77.0 Secondary and unspecified malignant neoplasm of lymph nodes of head, face and neck
CPT/HCPCS: 36583; 00532; 71045; 71260; 74177; 76000; C1788; J0665; J0690; J1642; J2250; J2405; J2704; J3010; J3490; J7120; Q9967

== ENCOUNTER 2023-01-30 10:26 | Outpatient (CLI) | payer OTHER, SELFPAY ==
--- NOTE | 2023-01-30 11:00 | CRLHL7_ITS ---
For Patients: As a result of the 21st Century Cures Act, medical imaging exams and procedure reports are released immediately into your electronic medical record. You may view this report before your referring provider. If you have questions, please contact your health care provider. Indication: FALLOPIAN TUBE CANCER F/U Technique: Postcontrast CT chest, abdomen and pelvis. 100 cc Isovue 370 intravenous contrast. Please note that all CT scans at this facility use dose modulation, iterative reconstruction, and/or weight-based dosing when appropriate to reduce radiation dose to as low as reasonably achievable. Comparison: 11/12/2022 Findings: In the chest, left-sided Port-A-Cath again noted. Continued decreased conspicuity and size of left thoracic inlet lymph nodes. Lymph node above the left clavicle measures 6.7 millimeters compared to 12.4 millimeters on the prior study, 05/31. The previously noted lymph node in the left superior mediastinum is barely perceptible on the current exam, series 2, image 14, measuring 3 millimeters compared to 8 millimeters on the prior exam. Similar subcentimeter mediastinal lymph nodes. No enlarged hilar or axillary lymph nodes. Breast tissue is unremarkable. Decreased size of right distal esophageal lymph node measuring 8.8 millimeters, previously measuring 11.4 millimeters, . Mild tortuosity of the aorta. No aortic dissection or aneurysm. No pleural or pericardial effusion. Lungs are clear. No infiltrate or edema. No pneumothorax or pulmonary nodule. No intrinsic osseous lesion. Degenerative changes. In the abdomen, multiple simple intrahepatic cysts are again noted. No suspicious intrahepatic mass. The gallbladder is normal. No biliary obstruction. The pancreas is normal. The spleen is upper limits of normal in size. No splenic lesion. No hiatal hernia. Adrenal glands are normal. Normal kidneys. Numerous small retroperitoneal lymph nodes are unchanged measuring up to 1.4 cm. Postop changes to the anterior abdominal wall. A midline upper abdominal fat filled hernia defect is again noted measuring 2.1 cm. A loop of transverse colon associated with the base of the hernia is similar. No bowel obstruction. In the pelvis, the bladder is incompletely distended. No bowel obstruction or free air. No free fluid. Mild diverticulosis. No diverticulitis. The appendix is normal. Mildly prominent bilateral external iliac lymph nodes are similar measuring up to 1 cm. No fracture. Impression: Decreased size and conspicuity of upper mediastinal/left thoracic inlet lymph nodes since the prior exam. Also decreased right distal paraesophageal lymph node. No significant interval change in multiple small retroperitoneal lymph nodes and bilateral external iliac lymph nodes. Stable anterior midline supraumbilical hernia defect. Please note that all CT scans at this facility use dose modulation, iterative reconstruction, and/or weight-based dosing when appropriate to reduce radiation dose to as low as reasonably achievable. Dictated by Jaime Casey MD @ 01/31/2023 8:38:11 AM (Electronically Signed)
== END 2023-01-30 10:27 | disposition home or self-care (01) ==
LOC: CT 10:27
PROVIDERS: PCP Family Medicine; Visit Provider Internal Medicine Hematology & Oncology
DX: C57.00 Malignant neoplasm of unspecified fallopian tube (principal); K42.9 Umbilical hernia without obstruction or gangrene
CPT/HCPCS: 71260; 74177; Q9967

== ENCOUNTER 2023-02-04 13:44 | Outpatient (RCR) | payer OTHER, SELFPAY ==
--- NOTE | 2022-08-31 12:42 | URNOTE ---
Per Eliza at [facility], Cisplatin (J9060), Paclitaxel (J9267), Emend (J1453) and Aloxi (J2469) do not require prior authorization as long as we follow [employer] guidelines and dosages. Call ref #[id number] Oskarmateus requires prior auth and is pending with [facility].
--- NOTE | 2022-09-10 13:28 | ONC.NURNOTE ---
Discussed pegfilgrastim day after chemo- pt agrees reminded to stay very well hydrated day before chemo on ongoing port was placed today and SSS did not find the lab orders in expanse to draw today lab will be done on Saturday patient was reminded to bring chemo info binder with her on Saturday
--- NOTE | 2022-09-10 14:35 | URNOTE ---
Neulasta has been approved for 3 months, 08/31/2022-12/01/2022. This has been approve for ONLY THREE MONTHS at the requested [facility] outpatient facility to allow time to discuss alternative administration sites with your provider. Auth# [id number]
[2022-09-12 08:21] LABS: Basophils Percent Auto 0.8 % (0.0-3.0); Eosinophils Percent Auto 3.5 % (0.0-7.0); Hematocrit 36.4 % (33.0-51.0); Hemoglobin* 11.7 gm/dL (12.0-16.0); Immature Granulocytes Pct Auto 0.8 %; Mean Corpuscular HGB Conc 32 gm/dL (32-36); Mean Corpuscular Hemoglobin 30 pg (26-34); Mean Corpuscular Volume 93 fL (80-100); Monocytes Percent Auto 11.9 % (0.0-11.0); Platelet Count* 208 K/uL (140-440); RDW Coefficient of Variation % 14.2 % (11.5-15.5); Red Blood Count 3.92 m/uL (4.00-5.20); White Blood Count* 3.95 K/uL (4.50-11.00)
[2022-09-12 08:23] VITALS: BP 144/87; PULSE 72; RESP 16; TEMP 36.1; O2SAT 95
[2022-09-12 08:23] LABS: Slide Review Reflex No
[2022-09-12 08:28] LABS: Chloride* 105 mmol/L (96-114)
[2022-09-12 08:29] LABS: Potassium* 4.1 mmol/L (3.6-5.1); Sodium* 139 mmol/L (135-149)
[2022-09-12 08:31] LABS: Aspartate Amino Transferase* 48 U/L (12-35); Bilirubin Total* 0.4 mg/dL (0.1-1.5); Carbon Dioxide* 30 mmol/L (20-32); Creatinine* 0.6 mg/dL (0.5-1.5); Est. Creatinine Clearance* 91.22; Estimated Glomerular Filt Rate 101 ml/min; Total Protein* 7.2 g/dL (6.0-8.3)
[2022-09-12 08:32] LABS: Alanine Aminotransferase* 33 U/L (4-35); Alkaline Phosphatase* 134 U/L (40-150); Blood Urea Nitrogen* 21 mg/dL (7-30); Glucose* 85 mg/dL (60-115); Magnesium* 1.7 mg/dL (1.5-2.6)
[2022-09-12] MEDS: FOSAPREPITANT 150 MG inj 150 MG in 0.9 % SODIUM CHLORIDE 250 ml 250 ML 510 MG IVPB (09:38)
[2022-09-12] MEDS: dexAMETHasone 20 MG in 0.9 % SODIUM CHLORIDE 100 ml 100 ML 408 MG IVPB (09:38)
[2022-09-12] MEDS: FAMOTIDINE 20 MG, diphenhydrAMINE 50 MG in 0.9 % SODIUM CHLORIDE 100 ml 100 ML 309 MG IVPB (10:10)
[2022-09-12] MEDS: PALONOSETRON 0.25 MG/5 ML inj IV (10:10)
[2022-09-12] MEDS: MAGNESIUM SULFATE 2 GM, POTASSIUM CHLORIDE 10 MEQ in 0.9 % SODIUM CHLORIDE 1000 ml 1,00... IV (12:42)
[2022-09-13 15:49] VITALS: BP 132/82; PULSE 59; RESP 16; TEMP 37.1; O2SAT 96
[2022-09-13] MEDS: PEGFILGRASTIM 6 MG/0.6 ML SYRINGE SUBCUT (15:52)
[2022-10-01 14:22] LABS: Basophils Absolute Auto 0.04 K/uL (0.00-0.30); Basophils Percent Auto 0.7 % (0.0-3.0); Eosinophils Absolute Auto 0.05 K/uL (0.00-0.50); Eosinophils Percent Auto 0.9 % (0.0-7.0); Hematocrit 33.9 % (33.0-51.0); Hemoglobin* 10.9 gm/dL (12.0-16.0); Immature Granulocytes Abs Auto 0.01 K/uL (0.00-0.30); Immature Granulocytes Pct Auto 0.2 %; Lymphocytes Percent Auto 19.4 % (20-44); Mean Corpuscular HGB Conc 32 gm/dL (32-36); Mean Corpuscular Hemoglobin 30 pg (26-34); Mean Corpuscular Volume 93 fL (80-100); Monocytes Percent Auto 10.8 % (0.0-11.0); Neutrophils Absolute Auto 3.64 K/uL (1.7-7.0); Platelet Count* 239 K/uL (140-440); RDW Coefficient of Variation % 14.9 % (11.5-15.5); Red Blood Count 3.66 m/uL (4.00-5.20); White Blood Count* 5.36 K/uL (4.50-11.00)
[2022-10-01] MEDS: HEPARIN 500 UNIT/5 ML SYRINGE IVF (14:27)
[2022-10-01] MEDS: SODIUM CHLORIDE 0.9 % (FLUSH) 10 ML SYRINGE IVF (14:27)
[2022-10-01 14:30] LABS: Slide Review Reflex No
[2022-10-01 14:59] LABS: Chloride* 102 mmol/L (96-114); Potassium* 3.7 mmol/L (3.6-5.1); Sodium* 137 mmol/L (135-149)
[2022-10-01 15:01] LABS: Aspartate Amino Transferase* 35 U/L (12-35); Bilirubin Total* 0.4 mg/dL (0.1-1.5); Carbon Dioxide* 30 mmol/L (20-32); Creatinine* 0.6 mg/dL (0.5-1.5); Est. Creatinine Clearance* 91.58; Estimated Glomerular Filt Rate 101 ml/min; Total Protein* 7.1 g/dL (6.0-8.3)
[2022-10-01 15:02] LABS: Alanine Aminotransferase* 25 U/L (4-35); Alkaline Phosphatase* 121 U/L (40-150); Blood Urea Nitrogen* 22 mg/dL (7-30); Glucose* 95 mg/dL (60-115); Magnesium* 1.7 mg/dL (1.5-2.6)
[2022-10-03 08:17] VITALS: BP 136/93; PULSE 79; RESP 16; TEMP 36.1; O2SAT 99
[2022-10-03] MEDS: MAGNESIUM SULFATE 2 GM, POTASSIUM CHLORIDE 10 MEQ in 0.9 % SODIUM CHLORIDE 1000 ml 1,00... IV (08:44)
[2022-10-03] MEDS: FAMOTIDINE 20 MG, diphenhydrAMINE 50 MG in 0.9 % SODIUM CHLORIDE 100 ml 100 ML 309 MG IVPB (09:47)
[2022-10-03] MEDS: PALONOSETRON 0.25 MG/5 ML inj IV (10:07)
[2022-10-03] MEDS: dexAMETHasone 20 MG in 0.9 % SODIUM CHLORIDE 100 ml 100 ML 408 MG IVPB (10:07)
[2022-10-03] MEDS: FOSAPREPITANT 150 MG inj 150 MG in 0.9 % SODIUM CHLORIDE 250 ml 250 ML 780 MG IVPB (10:33)
[2022-10-03] MEDS: SODIUM CHLORIDE 0.9 % (FLUSH) 10 ML SYRINGE IVF (17:09)
[2022-10-03] MEDS: HEPARIN 500 UNIT/5 ML SYRINGE IVF (17:09)
[2022-10-04] MEDS: PEGFILGRASTIM 6 MG/0.6 ML SYRINGE SUBCUT (15:36)
[2022-10-04 15:45] VITALS: BP 145/85; PULSE 55; RESP 14; TEMP 36.1; O2SAT 100
--- NOTE | 2022-10-08 15:08 | ONC.NURNOTE ---
Neulasta- if needed beyond 12/01/2022 Neuariadna ORTIZ Approval from [employer] from 10/08/22-03/13/23- this will need to be ordered from [facility] shipped to [facility] PA: [phone]
--- NOTE | 2022-10-11 08:13 | ONC.NURNOTE ---
Fax came through from [facility] that specimen was received.
--- NOTE | 2022-10-16 12:59 | URNOTE ---
Request received for authorization for?Carboplatin ([id number]), Paclitaxel (Taxol) ([id number]). Prior authorization is not required [facility] El[facility]auffman, Ref#[id number]. Prior [place] note re: Neulasta ([id number]) has been approved for 3 months, 08/31/2022-12/01/2022. This has been approve for ONLY THREE MONTHS at the requested [facility] facility to allow time to discuss alternative administration sites with your provider. Auth# [id number]
[2022-10-22] MEDS: SODIUM CHLORIDE 0.9 % (FLUSH) 10 ML SYRINGE IVF (14:12)
[2022-10-22] MEDS: HEPARIN 500 UNIT/5 ML SYRINGE IVF (14:12)
[2022-10-22] MEDS: ALTEPLASE 2 MG INJ IVF (14:27)
--- NOTE | 2022-10-22 16:11 | ONC.NURNOTE ---
port flushed well. no blood return. cathflo 2.2cc placed for 30min. no blood return. Susan walked and stretched. 15 min later port flushed with 10cc saline, followed by 10cc blood return. filled 1/4 red tube then port would not give blood return . periferal blood draw for labs for chemo 10/24. pts port access de accessed.
[2022-10-22 16:18] LABS: Basophils Absolute Auto 0.04 K/uL (0.00-0.30); Basophils Percent Auto 0.7 % (0.0-3.0); Eosinophils Percent Auto 1.8 % (0.0-7.0); Hematocrit 37.7 % (33.0-51.0); Immature Granulocytes Abs Auto 0.01 K/uL (0.00-0.30); Immature Granulocytes Pct Auto 0.2 %; Lymphocytes Absolute Auto 1.15 K/uL (0.90-2.90); Lymphocytes Percent Auto 20.5 % (20-44); Mean Corpuscular HGB Conc 32 gm/dL (32-36); Mean Corpuscular Hemoglobin 30 pg (26-34); Mean Corpuscular Volume 94 fL (80-100); Monocytes Percent Auto 11.9 % (0.0-11.0); Neutrophils Absolute Auto 3.64 K/uL (1.7-7.0); Neutrophils Percent Auto 64.9 % (42.0-72.0); Platelet Count* 268 K/uL (140-440); RDW Coefficient of Variation % 16.3 % (11.5-15.5); White Blood Count* 5.61 K/uL (4.50-11.00)
[2022-10-22 16:20] LABS: Slide Review Reflex No
[2022-10-22 16:27] LABS: Albumin* 4.3 g/dL (3.3-5.0); Chloride* 103 mmol/L (96-114); Potassium* 4.1 mmol/L (3.6-5.1); Sodium* 136 mmol/L (135-149)
[2022-10-22 16:29] LABS: Bilirubin Total* 0.4 mg/dL (0.1-1.5); Carbon Dioxide* 24 mmol/L (20-32); Creatinine* 0.6 mg/dL (0.5-1.5); Est. Creatinine Clearance* 91.05; Estimated Glomerular Filt Rate 101 ml/min
[2022-10-22 16:30] LABS: Alanine Aminotransferase* 27 U/L (4-35); Alkaline Phosphatase* 153 U/L (40-150); Aspartate Amino Transferase* 31 U/L (12-35); Blood Urea Nitrogen* 14 mg/dL (7-30); Calcium* 9.4 mg/dL (8.4-10.6); Glucose* 87 mg/dL (60-115); Total Protein* 7.9 g/dL (6.0-8.3)
[2022-10-24] MEDS: ALTEPLASE 2 MG INJ IVF (09:21)
[2022-10-24] MEDS: PALONOSETRON 0.25 MG/5 ML inj IV (11:22)
[2022-10-24] MEDS: dexAMETHasone 12 MG in 0.9 % SODIUM CHLORIDE 100 ml 100 ML 404.8 MG IVPB (11:22)
[2022-10-24] MEDS: FAMOTIDINE 20 MG, diphenhydrAMINE 50 MG in 0.9 % SODIUM CHLORIDE 100 ml 100 ML 309 MG IVPB (11:41)
[2022-10-24] MEDS: FOSAPREPITANT 150 MG inj 150 MG in 0.9 % SODIUM CHLORIDE 250 ml 250 ML 510 MG IVPB (12:02)
[2022-10-24] MEDS: SODIUM CHLORIDE 0.9 % (FLUSH) 10 ML SYRINGE IVF (14:08)
[2022-10-24] MEDS: HEPARIN 500 UNIT/5 ML SYRINGE IVF (14:08)
--- NOTE | 2022-10-25 15:33 | ONC.NURNOTE ---
Sales Representative [employer] called pt to see how she was feeling after receiving the Carboplatin yesterday. Pt states doing well. Took Lorazepam last night and slept well. No concerns today. Pt to return tomorrow for dye study and neulasta injection.
[2022-10-26 09:59] VITALS: BP 138/87; PULSE 83; RESP 16; TEMP 35.9; O2SAT 97
[2022-10-26] MEDS: PEGFILGRASTIM 6 MG/0.6 ML SYRINGE SUBCUT (10:53)
[2022-10-26] MEDS: HEPARIN 500 UNIT/5 ML SYRINGE IVF (10:55)
[2022-10-26] MEDS: SODIUM CHLORIDE 0.9 % (FLUSH) 10 ML SYRINGE IVF (10:55)
--- NOTE | 2022-11-08 15:20 | PC.NURSE ---
Addendum entered by Eneida Couch RN 11/08/22 16:05: Pt called back with a change of plans for next week. 11/12/2022 pt will have labs at 0730 at [facility], CT scan at 0800 (check in at 0745), and then port revision. , 11/15/2022 pt will have MD appt and treatment to follow. Original Note: Pt called today with an update regarding next week's schedule. 11/12/2022 pt will have a port revision. 11/14/2022 pt will have port labs and CT scan. She would like to keep port accessed for next day treatment. , 11/15/2022 pt will have MD appt and treatment to follow. All appt dates and times reviewed with Susan today. Support offered.
[2022-11-12 08:16] LABS: Basophils Percent Auto 0.9 % (0.0-3.0); Eosinophils Percent Auto 1.2 % (0.0-7.0); Hematocrit 34.3 % (33.0-51.0); Immature Granulocytes Pct Auto 0.3 %; Mean Corpuscular HGB Conc 32 gm/dL (32-36); Mean Corpuscular Hemoglobin 31 pg (26-34); Mean Corpuscular Volume 97 fL (80-100); Monocytes Percent Auto 10.7 % (0.0-11.0); Neutrophils Percent Auto 65.9 % (42.0-72.0); Platelet Count* 169 K/uL (140-440); RDW Coefficient of Variation % 17.2 % (11.5-15.5); Red Blood Count 3.54 m/uL (4.00-5.20); White Blood Count* 3.47 K/uL (4.50-11.00)
[2022-11-12 08:20] LABS: Slide Review Reflex No
[2022-11-12 08:32] LABS: Chloride* 106 mmol/L (96-114); Potassium* 3.8 mmol/L (3.6-5.1); Sodium* 139 mmol/L (135-149)
[2022-11-12 08:34] LABS: Creatinine* 0.6 mg/dL (0.5-1.5); Est. Creatinine Clearance* 91.95; Estimated Glomerular Filt Rate 101 ml/min
[2022-11-12 08:35] LABS: Alanine Aminotransferase* 25 U/L (4-35); Alkaline Phosphatase* 126 U/L (40-150); Aspartate Amino Transferase* 30 U/L (12-35); Bilirubin Total* 0.6 mg/dL (0.1-1.5); Blood Urea Nitrogen* 15 mg/dL (7-30); Carbon Dioxide* 26 mmol/L (20-32); Glucose* 82 mg/dL (60-115); Total Protein* 7.3 g/dL (6.0-8.3)
[2022-11-15] MEDS: dexAMETHasone 12 MG in 0.9 % SODIUM CHLORIDE 100 ml 100 ML 420 MG IVPB (10:03)
[2022-11-15] MEDS: PALONOSETRON 0.25 MG/5 ML inj IV (10:03)
[2022-11-15] MEDS: FAMOTIDINE 20 MG, diphenhydrAMINE 50 MG in 0.9 % SODIUM CHLORIDE 100 ml 100 ML 412 MG IVPB (10:22)
[2022-11-15] MEDS: FOSAPREPITANT 150 MG inj 150 MG in 0.9 % SODIUM CHLORIDE 250 ml 250 ML 780 MG IVPB (10:42)
[2022-11-15] MEDS: SODIUM CHLORIDE 0.9 % (FLUSH) 10 ML SYRINGE IVF (15:00)
[2022-11-15] MEDS: HEPARIN 500 UNIT/5 ML SYRINGE IVF (15:21)
[2022-11-16 15:15] VITALS: BP 123/64; PULSE 91; RESP 18; TEMP 36.1; O2SAT 96
[2022-11-16] MEDS: PEGFILGRASTIM 6 MG/0.6 ML SYRINGE SUBCUT (15:24)
--- NOTE | 2022-12-04 08:58 | ONC.NURNOTE ---
Spoke with Robert at [facility] to confirm delivery of Neulasta to [facility] on 12/06/22 for administration on Sat12/07/22. $0 Copay; updated Luis in Pharm. [phone] ext: [phone]
[2022-12-06 08:23] LABS: Basophils Percent Auto 0.6 % (0.0-3.0); Eosinophils Percent Auto 1.9 % (0.0-7.0); Hematocrit 33.3 % (33.0-51.0); Hemoglobin* 10.7 gm/dL (12.0-16.0); Mean Corpuscular HGB Conc 32 gm/dL (32-36); Mean Corpuscular Hemoglobin 32 pg (26-34); Mean Corpuscular Volume 98 fL (80-100); Neutrophils Percent Auto 60.5 % (42.0-72.0); Platelet Count* 181 K/uL (140-440); RDW Coefficient of Variation % 16.5 % (11.5-15.5); Red Blood Count 3.39 m/uL (4.00-5.20); White Blood Count* 3.22 K/uL (4.50-11.00)
[2022-12-06 08:26] LABS: Slide Review Reflex No
[2022-12-06 08:45] LABS: Chloride* 105 mmol/L (96-114)
[2022-12-06 08:46] LABS: Potassium* 4.1 mmol/L (3.6-5.1); Sodium* 138 mmol/L (135-149)
[2022-12-06 08:48] LABS: Bilirubin Total* 0.5 mg/dL (0.1-1.5); Carbon Dioxide* 27 mmol/L (20-32); Creatinine* 0.6 mg/dL (0.5-1.5); Est. Creatinine Clearance* 91.77; Estimated Glomerular Filt Rate 101 ml/min; Total Protein* 7.1 g/dL (6.0-8.3)
[2022-12-06 08:49] LABS: Alanine Aminotransferase* 27 U/L (4-35); Alkaline Phosphatase* 154 U/L (40-150); Aspartate Amino Transferase* 33 U/L (12-35); Blood Urea Nitrogen* 17 mg/dL (7-30); Calcium* 8.7 mg/dL (8.4-10.6); Glucose* 82 mg/dL (60-115)
[2022-12-06] MEDS: dexAMETHasone 12 MG in 0.9 % SODIUM CHLORIDE 100 ml 100 ML 404.8 MG IVPB (10:19)
[2022-12-06] MEDS: PALONOSETRON 0.25 MG/5 ML inj IV (10:21)
[2022-12-06] MEDS: FAMOTIDINE 20 MG, diphenhydrAMINE 50 MG in 0.9 % SODIUM CHLORIDE 100 ml 100 ML 309 MG IVPB (10:41)
[2022-12-06] MEDS: FOSAPREPITANT 150 MG inj 150 MG in 0.9 % SODIUM CHLORIDE 250 ml 250 ML 510 MG IVPB (11:13)
[2022-12-07 15:15] VITALS: BP 162/71; PULSE 88; RESP 16; TEMP 36.3; O2SAT 95
--- NOTE | 2022-12-07 16:08 | ONC.NURNOTE ---
pt states feling puffy and tired. her TSH was elevated. pt following up with her primary. labs faxed yest.
--- NOTE | 2022-12-19 13:27 | ONC.NURNOTE ---
Patient called and reported having COVID.
--- NOTE | 2022-12-31 14:03 | ONC.NURNOTE ---
Neulasta refill signed by Dr Alarcon and faxed to [facility] Neulasta 6mg SQ on Day 2 after chemo
[2023-01-01 14:17] LABS: Basophils Percent Auto 0.7 % (0.0-3.0); Eosinophils Percent Auto 2.5 % (0.0-7.0); Hematocrit 33.4 % (33.0-51.0); Hemoglobin* 10.8 gm/dL (12.0-16.0); Immature Granulocytes Pct Auto 0.2 %; Lymphocytes Percent Auto 20.8 % (20-44); Mean Corpuscular HGB Conc 32 gm/dL (32-36); Mean Corpuscular Hemoglobin 32 pg (26-34); Mean Corpuscular Volume 100 fL (80-100); Neutrophils Percent Auto 63.8 % (42.0-72.0); Platelet Count* 227 K/uL (140-440); Red Blood Count 3.34 m/uL (4.00-5.20); White Blood Count* 4.33 K/uL (4.50-11.00)
[2023-01-01 14:26] LABS: Slide Review Reflex No
[2023-01-01 14:29] LABS: Albumin* 4.2 g/dL (3.3-5.0); Chloride* 104 mmol/L (96-114); Potassium* 3.9 mmol/L (3.6-5.1); Sodium* 139 mmol/L (135-149)
[2023-01-01 14:32] LABS: Alanine Aminotransferase* 25 U/L (4-35); Alkaline Phosphatase* 126 U/L (40-150); Anion Gap 9 mEq/L (7-15); Aspartate Amino Transferase* 30 U/L (12-35); Bilirubin Total* 0.5 mg/dL (0.1-1.5); Blood Urea Nitrogen* 19 mg/dL (7-30); Calcium* 9.5 mg/dL (8.4-10.6); Carbon Dioxide* 26 mmol/L (20-32); Creatinine* 0.6 mg/dL (0.5-1.5); Estimated Glomerular Filt Rate 101 ml/min; Glucose* 102 mg/dL (60-115); Total Protein* 7.6 g/dL (6.0-8.3)
[2023-01-03] MEDS: PALONOSETRON 0.25 MG/5 ML inj IV (09:20)
[2023-01-03] MEDS: dexAMETHasone 12 MG in 0.9 % SODIUM CHLORIDE 100 ml 100 ML 404.8 MG IVPB (09:20)
[2023-01-03] MEDS: FOSAPREPITANT 150 MG inj 150 MG in 0.9 % SODIUM CHLORIDE 250 ml 250 ML 510 MG IVPB (09:47)
[2023-01-03] MEDS: FAMOTIDINE 20 MG, diphenhydrAMINE 50 MG in 0.9 % SODIUM CHLORIDE 100 ml 100 ML 309 MG IVPB (10:24)
[2023-01-03 14:30] VITALS: BP 131/82; PULSE 92; RESP 14; TEMP 36.1; O2SAT 94
--- NOTE | 2023-01-03 15:30 | ONC.NURNOTE ---
20 minutes into the Carbo. pt experienced pin like feelings in mandi hands. Carbo stopped and Dr. Lewis notified. no rash. vs wnl. per Dr. Lewis stop carbo. pt may have a challange if ever receiving carbo in the future. Note on chart. pt informed. 200 cc NS given. at 1500 pt states feeling better.
[2023-01-30] MEDS: HEPARIN 500 UNIT/5 ML SYRINGE IVF (11:43)
[2023-01-30] MEDS: SODIUM CHLORIDE 0.9 % (FLUSH) 10 ML SYRINGE IVF (11:43)
[2023-01-30 12:41] LABS: Basophils Absolute Auto 0.03 K/uL (0.00-0.30); Basophils Percent Auto 0.6 % (0.0-3.0); Eosinophils Absolute Auto 0.15 K/uL (0.00-0.50); Eosinophils Percent Auto 3.1 % (0.0-7.0); Hematocrit 36.6 % (33.0-51.0); Hemoglobin* 11.6 gm/dL (12.0-16.0); Immature Granulocytes Abs Auto 0.01 K/uL (0.00-0.30); Immature Granulocytes Pct Auto 0.2 %; Lymphocytes Percent Auto 14.1 % (20-44); Mean Corpuscular HGB Conc 32 gm/dL (32-36); Mean Corpuscular Hemoglobin 32 pg (26-34); Mean Corpuscular Volume 102 fL (80-100); Monocytes Percent Auto 12.2 % (0.0-11.0); Neutrophils Absolute Auto 3.36 K/uL (1.7-7.0); Neutrophils Percent Auto 69.8 % (42.0-72.0); Platelet Count* 268 K/uL (140-440); RDW Coefficient of Variation % 14.1 % (11.5-15.5); Slide Review Reflex No; White Blood Count* 4.82 K/uL (4.50-11.00)
--- NOTE | 2023-01-30 12:46 | ONC.NURNOTE ---
Patient here for port access prior to CT scan. Patient wanted labs checked. Talked with Dr. Alarcon as none were ordered. Verbal order for CBC, CMP, TSH, and CA125 given. These were drawn and sent to lab. Patient requested that we send TSH results to Dr. Greer when they are back. Will fax results once they are back.
[2023-01-30 12:55] LABS: Chloride* 108 mmol/L (96-114); Potassium* 3.8 mmol/L (3.6-5.1); Sodium* 141 mmol/L (135-149)
[2023-01-30 12:57] LABS: Anion Gap 8 mEq/L (7-15); Aspartate Amino Transferase* 27 U/L (12-35); Bilirubin Total* 0.5 mg/dL (0.1-1.5); Carbon Dioxide* 25 mmol/L (20-32); Creatinine* 0.6 mg/dL (0.5-1.5); Est. Creatinine Clearance* 91.95; Estimated Glomerular Filt Rate 101 ml/min; Total Protein* 7.3 g/dL (6.0-8.3)
[2023-01-30 12:58] LABS: Alanine Aminotransferase* 18 U/L (4-35); Alkaline Phosphatase* 136 U/L (40-150); Blood Urea Nitrogen* 12 mg/dL (7-30); Calcium* 8.7 mg/dL (8.4-10.6); Glucose* 83 mg/dL (60-115)
--- NOTE | 2023-01-30 14:59 | ONC.NURNOTE ---
Faxed TSH results to Dr. [facility] office. [phone].
[2023-02-01 15:59] LABS: Cancer Antigen 125 7 U/mL (<=38)
== END 2023-02-26 23:59 | disposition home or self-care (01) ==
LOC: CCIC 13:44
PROVIDERS: Clinical Nurse Specialist; Family Medicine; PCP Family Medicine; Referring Provider Family Medicine; Visit Provider Internal Medicine Hematology & Oncology
DX: C57.01 Malignant neoplasm of right fallopian tube (principal); C50.912 Malignant neoplasm of unspecified site of left female breast; Z17.0 Estrogen receptor positive status [ER+]; Z79.811 Long term (current) use of aromatase inhibitors; E03.9 Hypothyroidism, unspecified; K76.89 Other specified diseases of liver
CPT/HCPCS: 36415; 36591; 80053; 83735; 84443; 85025; 86304; 96366; 96372; 96376; 96409; 96411; 96413; 96415; 96417; 99211; 99212; 99213; 99214; 99215; J2506; J1100; J1200; J1453; J1642; J2469; J2997; J3475; J3480; J7030; J7050; J9045; J9060; J9267; S0028

== ENCOUNTER 2023-03-28 13:47 | Outpatient (CLI) | payer OTHER, SELFPAY ==
--- NOTE | 2023-03-28 14:00 | XR_ITS ---
Patient: EDMAR MOREJON Facility:?[facility] Patient ID:?[id number] Site Patient ID:?[id number]. Site :?[id number] Study:?DEXA-Bone Density DEXA - Spine/Hips DONE 03/28-04/04/2023 9:58:30 AM Ordering Physician:SUNIL Final Report: DXA BONE MINERAL DENSITY STUDY Reason for exam: PRISON USE AROMATOSE INHIBITORS Current height (in): 60. Weight (lb): 220. Menopause age: 52. Ethnicity: White. 1. Have you had a previous hip or vertebral fracture? No. 2. Have you had any fractures during your adult life which did not result from significant trauma (e.g., auto accident)? No. 3. Did either of your parents have a hip fracture? No. 4. Do you smoke? No. 5. Have you ever taken Glucocorticoids? No. 6. Do you have rheumatoid arthritis? Yes. 7. Do you have secondary osteoporosis? No. 8. Do you drink 3 or more alcoholic drinks per day? No. 9. Are you being treated for osteoporosis? No. 10. Have you ever taken any of the following medications: Actonel, Evista, Fosamax, Miacalcin, Reclast, Boniva, Forteo, HRT (i.e. estrogen/hormone therapy), Protelos, Prolia, Vitamin D, Calcium, other ? please specify. ANSWER: Yes, calcium. 11. Do you have any of the following medical conditions: Anorexia or bulimia, asthma or emphysema, end stage renal disease, hyperparathyroidism, any seizure disorders, cancer, inflammatory bowel diseases, hysterectomy, other ? please specify. ANSWER: Yes, hysterectomy. 12. What was your maximum height (inches)? 61. 13. Do you perform weight bearing exercise regularly? Yes. 14. Do you regularly consume dairy products? Yes. 15. Do you drink caffeinated beverages? Yes. 16. At what age did your period start? 11. 17. Are you premenopausal? No. 18. How many full term pregnancies have you had? 0. 19. Have you ever missed your period for more than 6 months in a row (not including or menopause)? No. TECHNIQUE: Bone mineral density study was performed using the [employer]. FINDINGS: The results of the study expressed as bone mineral density (BMD) are as follows: Lumbar spine L1 to L4: BMD: 0.896 g/cm2. T-score: -1.4. Z-score: 0.3. Neck Left: BMD: 0.629 g/cm2. T-score: -2.0. Z-score: -0.6. Right: BMD: 0.662 g/cm2. T-score: -1.7. Z-score: -0.3. Total Left: BMD: 0.897 g/cm2. T-score: -0.4. Z-score: 0.8. Right: BMD: 0.847 g/cm2. T-score: -0.8. Z-score: 0.4. IMPRESSION: Osteopenia. *Comparison exams done prior to 09/2019 were performed on different unit, [employer]. COMPARISON: Compared with scan of 09/07/2020, the bone mineral density has decreased by 0.9 percent at the spine and decreased by 3.6 percent at the hip. FRAX 10-year Fracture Risk Major Osteoporotic Fracture: 11 percent Hip Fracture: 1.5 percent Reported Risk Factors: [place] () Neck BMD=0.629, BMI=43.0, rheumatoid arthritis Jaime Casey M.D. Diagnostic Radiologist [email or web address] JOHANNA/peter D& Transcribed: 6:31 p.m. SHIRA/Dictated by: Jaime Casey MD @ 04/05/2023 10:43:00 AM Signed by:?Jaime Casey MD @04/07/2023 4:56:24 PM (Electronic Signature)
== END 2023-03-28 13:48 | disposition home or self-care (01) ==
LOC: RAD 13:47
PROVIDERS: PCP Family Medicine; Visit Provider Internal Medicine Hematology & Oncology
DX: M85.89 Other specified disorders of bone density and structure, multiple sites (principal); Z79.811 Long term (current) use of aromatase inhibitors
CPT/HCPCS: 77080

== ENCOUNTER 2023-04-17 09:32 | Outpatient (CLI) | payer OTHER, SELFPAY ==
--- NOTE | 2023-04-17 10:00 | CRLHL7_ITS ---
For Patients: As a result of the Century Cures Act, medical imaging exams and procedure reports are released immediately into your electronic medical record. You may view this report before your referring provider. If you have questions, please contact your health care provider. Indication: Malignant neoplasm of unspecified fallopian tube Technique: CT Chest/Abd/Pelvis w/ 109cc Isovue-370 Please note that all CT scans at this facility use dose modulation, iterative reconstruction, and/or weight-based dosing when appropriate to reduce radiation dose to as low as reasonably achievable. Comparison: 01/30/2023, 11/12/2022, 08/15/2022 Findings: In the chest, subcentimeter left thoracic inlet/left supraclavicular lymph nodes are similar. Postop changes to the left axilla. Stable breast parenchyma. Left Port-A-Cath. Stable precarinal lymph node. No pleural or pericardial effusion. No infiltrate or edema. No nodule. Degenerative disc disease with increased thoracic kyphosis. No fracture or suspicious lesion. Chronic elevation right hemidiaphragm. Stable sub centimeter right paraesophageal lymph nodes. In the abdomen, multiple simple hepatic cysts. No suspicious liver lesion. Gallbladder normal. No biliary obstruction. Normal pancreas. Spleen is similar. Normal adrenal glands. Right extrarenal pelvis is unchanged. No solid renal mass or hydronephrosis. Supraumbilical midline abdominal wall hernia containing fat is unchanged. Stable periumbilical soft tissues. Stable upper limits of normal retroperitoneal lymph nodes. Mild atherosclerotic changes. In the pelvis, the bladder is incompletely distended. No pelvic soft tissue mass. Mild diverticulosis. No diverticulitis. No bowel obstruction or free air. No free fluid or abscess. Normal appendix and terminal ileum. Degenerative facet arthropathy lower lumbar spine. Slight anterolisthesis of L4 on L5. No fracture. Stable subcentimeter external iliac lymph nodes. Impression: No significant change in subcentimeter lymph nodes in the left thoracic inlet, left supraclavicular space, mediastinum, paraesophageal space, retroperitoneum and bilateral external iliac chains. Stable benign intrahepatic cysts. Unchanged midline supraumbilical abdominal wall hernia containing fat. Chronic diverticulosis. Please note that all CT scans at this facility use dose modulation, iterative reconstruction, and/or weight-based dosing when appropriate to reduce radiation dose to as low as reasonably achievable. Dictated by Jaime Casey MD @ 04/18/2023 4:24:55 PM (Electronically Signed)
== END 2023-04-17 09:33 | disposition home or self-care (01) ==
LOC: CT 09:33
PROVIDERS: PCP Family Medicine; Visit Provider Internal Medicine Hematology & Oncology
DX: C57.00 Malignant neoplasm of unspecified fallopian tube (principal); K76.89 Other specified diseases of liver; K43.9 Ventral hernia without obstruction or gangrene; K57.30 Diverticulosis of large intestine without perforation or abscess without bleeding
CPT/HCPCS: 71260; 74177; Q9967

== ENCOUNTER 2023-09-02 12:59 | Outpatient (CLI) | payer OTHER, SELFPAY ==
--- OUTSIDE RECORDS SUMMARY | 2023-09-04 07:29 | XMS_ITS | Encounter Summary ---
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 [address] [place] [address] [facility] [place] [address] [place] [phone] Referral ID Status Reason Start Date Expiration Date Visits Re quested Visits Authorized [id number] Closed 07/08/2023 06/26/2024 5 5 Encounter Details Date Type Department Care Team (Latest Contact Info) Description 07/11/2023 2:07 PM CDT - 07/11/2023 11:59 PM CDT Hospital Encounter Department of Radiation Oncology in [place], [place] [address] [place] [phone] Sophia Kemp M.D. [address] [place] [phone] Discharge Disposition: Home or Self Care Social History Tobacco Use Types Packs/Day Years Used Date Smoking Tobacco: Never Smokeless Tobacco: Never Alcohol Use Standard Drinks/Week Comments Yes 0 (1 standard drink = 0.6 oz pur e alcohol) Rare Social Connection and Isolat ion Panel [NHANES] Answer Date Recorded In a typical week, how many times do you talk on the phone with family, friends, or neighbors? More than three times a week 05/20/2020 How often do you get togethe r with friends or relatives? Three times a week 05/20/2020 How often do you attend chur ch or christian services? Patient declined 05/20/2020 Do you belong to any clubs o r organizations such as quaker groups, unions, fraternal or athletic groups, or school groups? Yes 05/20/2020 How often do you attend meet ings of the clubs or organizations you belong to? Patient declined 05/20/2020 Are you , , di vorced, , never , or living with a partner? Never 05/20/2020 AUDIT-C Answer Date Recorded Q1: How often do you have a drink containing alc ohol? Monthly or less 05/20/2020 Q2: How many drinks containi ng alcohol do you have on a typical day when you are drinking? 1 or 2 05/20/2020 Q3: How often do you have si x or more drinks on one occasion? Never 05/20/2020 [facility] - Occupational Stress Questionnaire Answer Date Recorded Do you feel stress - tense, restless, nervous, or anxious, or unable to sleep at night because your mind is troubled all the time - these days? To some extent 05/20/2020 Exercise Vital Sign Answer Date Recorde d On average, how many days pe r week do you engage in moderate to strenuous exercise (like a brisk walk)? 0 days On average, how many minutes do you engage in exercise at this level? Patient declined 05/20/2020 PRAPARE - Transportation Answer Date Re corded In the past 12 months, has l ack of transportation kept you from medical appointments or from getting medications? No 04/23 In the past 12 months, has l ack of transportation kept you from meetings, work, or from getting things needed for daily living? No 05/20/2020 Nutrition Answer Date Recorded Nutrition: EVOO Fat Source Unknown 06/09 Nutrition: Servings of Fruits/Vegetables per Day Not on file 06/09/2023 Dental Answer Date Recorded Dental: Regular Dentist Unknown 06/09/19 Education Answer Date Recorded What is the highest level of school you have completed or the highest degree you have received? 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 Swallow whole with a drink of water. anastrozole (ARIMIDEX) 1 mg tablet Take 1 mg by mouth. 06/21/2022 calcium carbonate-vitamin D3 (Calcium 500 + D) 1,250 mg (500 mg calcium)-5 mcg (200 Unit) per tablet Take 1 tablet by mouth 2 (two) times a day with meals. eucalyptus/peppermint oil (PONARIS NASAL) Administer 1 puff into nostril(s) daily as needed (dryness). FLUoxetine (PROzac) 10 mg capsule Take 10 mg by mouth at bedtime. 02/29/2020 levothyroxine (SYNTHROID, LEVOTHROID) 125 mcg tablet Take 125 mcg by mouth every morning before breakfast. 02/29/2020 levothyroxine 125 mcg/mL solution Take 125 mcg by mouth. 10/16/2021 LORazepam (ATIVAN) 0.5 mg tablet Take 0.5 mg by mouth every 4 (four) hours as needed. 09/12/2022 magnesium oxide (MAG-OX) 400 mg (241.3 mg magnesium) tablet Take 1 tablet by mouth daily. 01/09/2021 multivitamin (multivitamin) tablet Take 1 tablet by mouth at bedtime. naproxen-diphenhydrAMINE 220-25 mg tablet Take 1 tablet by mouth at bedtime as needed (sleep). HOLD while taking ibuprofen for surgical pain 01/22/2021 omega 7-olp-srs-fish oil 1,000 mg (120 mg-180 mg) capsule Take 2,000 mg by mouth every evening. 01/05/2019 omeprazole (PriLOSEC) [address] capsule Take 40 mg by mouth every morning before breakfast. 02/29/2020 ondansetron (ZOFRAN) 4 mg tablet 08/30/2022 prochlorperazine (COMPAZINE) 5 mg tablet Take 5 mg by mouth every 4 (four) hours as needed. 08/30/2022 VITAMIN B COMPLEX ORAL Take 1 tablet by mouth. 023 documented as of this encounter Plan of Treatment Not on file documented as of this encounter Visit Diagnoses Not on filedocumented in this encounter Care Teams Duck Farmer Relationship Specialty Start Date End Date Elsewhere, Pcp PCP - General Family Medicine 01/20/21 documented as of this encounter
--- OUTSIDE RECORDS SUMMARY | 2023-09-04 07:29 | XMS_ITS ---
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 Overview: EGD 12/2018 EoE, try omeprazole 40 mg Last Assessment & Plan: Life long PROTON PUMP INHIBITOR treatment Other Specified Postprocedural States 04/08/2013 Overview: Left myringotomy tube, per ENT patient is to keep ear dry and lavage should not be attempted Diverticulitis Of Large Inte avelino Without Perforation Or Abscess Without Bleeding 01/20/2011 Screening Cancer Colon 01/19/2011 Overview: Colonoscopy 12/2010 normal repeat in 10 years Adjustment Disorder Mixed Reaction 12/17/2006 Hypothyroidism 12/17/2006 Gastroesophageal Reflux Disease NOS 12/17/2006 Pelvic Congestion Syndrome 12/17/2006 Rhinitis Allergic 12/17/2006 Current Oncology Plans No current plan information found. Past Plans No past plan information found. Radiation Treatments * Plan Last Treated On Elapsed Days Fractions Treated Prescribed Fraction Dose Prescribed Total Dose [id number] 07/19/2023 10 5 of 5 600 cGy 3,000 cGy [id number] 07/19/2023 10 5 of 5 600 cGy 3,000 cGy F1 Lt Breast 06/07/2020 6 5 of 5 520 cGy 2,600 c Gy Reference Point Last Treated On Elapsed Days Session Dose Total Dose [id number] 07/19/2023 10 600 cGy 3,000 cGy [id number] 07/19/2023 10 600 cGy 3,000 cGy [id number] 06/07/2020 6 520 cGy 2,600 cGy
--- OUTSIDE RECORDS SUMMARY | 2023-09-04 07:29 | XMS_ITS | Encounter Summary ---
Author Name Unknown Organization [facility] Address [address] [place] [address] Care Team Providers Care Epic Application Coordinator Name Role Phone Elsewhere, Pcp Primary Care Provider Unavailabl e Encounter Details Date Type Department Care Team (Late st Contact Info) Description 07/19/2023 Documentation Department of Radiation Oncology in [place], [place] [address] [place] [phone] Sophia Kemp M.D. [address] [place] [phone] Social History Tobacco Use Types Packs/Day Years [...] often do you attend chur ch or mu-ism services? Patient declined 05/20/2020 Do you belong to any clubs o r organizations such as samaritan groups, unions, fraternal or athletic groups, or [...] more drinks on one occasion? Never 05/20/2020 [facility] - Occupational Stress [...] Date Recorded Dental: Regular Dentist Unknown 06/09/19 24 Education Answer Date Recorded What is the highest level of school you have completed or the highest degree you have received? 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 - 07/19/2023 11:59 PM CDT DIAGNOSIS: 1. 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 Treatment Intent: Palliative Concomitant Therapy: None Single Plan Treatment Course: 2xMultiSiteSBRT Plan ID Fractions Dose / Fraction (cGy) Dose Treated (cGy) Dose Planned (cGy) First Treatment Last Treatment Elapsed Days [id number] 5 / 5 600 3000 3000 07/09/2023 07/19/2023 10 [id number] 5 / 5 600 3000 3000 07/09/2023 07/19/2023 10 Course Summary 07/09/2023 07/19/2023 10 Radiation Modality: Photons CLINICAL SUMMARY Susan Ramirez completed radiation treatment as planned without interruptions. The course oftreatment was tolerated well. The patient experienced toxicities of grade 1 nausea and vomiting during radiation treatment. TREATMENT RESPONSE: Response to treatment will be determined by post-treatment imaging and/or laboratory work. RECOMMENDED FOLLOW UP: Primary Medical Oncologist. Dr. 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
--- OUTSIDE RECORDS SUMMARY | 2023-09-04 07:29 | XMS_ITS | Encounter Summary ---
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 [address] [place] [address] Referral ID Status Reason Start Date Expiration Date Visits Re quested Visits Authorized [id number] Closed 06/28/2023 06/27/2024 1 1 Encounter Details Date Type Department Care Team (Latest Contact Info) Description 07/01/2023 12:43 PM CDT - 07/01/2023 1:38 PM CDT Hospital Encounter Department of Radiation Oncology in [place], [place] [address] [place] [phone] Sophia Kemp M.D. 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 Patient declined 05/20/2020 Do you belong to any clubs o r organizations such as hinduism groups, unions, fraternal or athletic groups, or [...] more drinks on one occasion? Never 05/20/2020 [facility] - Occupational Stress [...] Sex Assigned at Female 06/28/2023 7:51 PM PROFILING MACHINE OPERATOR Gender Identity Female 06/28/2023 7:52 PM PROFILING MACHINE OPERATOR Sexual Orientation Straight 06/28/2023 7: 52 PM PROFILING MACHINE OPERATOR documented as of this encounter Last Filed Vital Signs Vital Sign Reading Time Taken Comments Blood Pressure 136/69 07/01/2023 12:54 PM CDT Pulse 93 07/01/2023 12:54 PM CDT Temperature 36.9 ??C (98.4 ??F) 07/01/2023 1 2:54 PM CDT Respiratory Rate - - Oxygen Saturation - - Inhaled Oxygen Concentration - - Weight 97.9 kg (215 lb 13.3 oz) 024 12:54 PM CDT Height - - Body Mass Index 42.37 03/01/2021 11:13 AM PROFILING MACHINE OPERATOR documented in this encounter Discharge Instructions * Patient Instructions* Janette Haley P.A.-C., M.S. - 07/01/2023 1:00 PM CDT 50 documented in this encounter Medications at Time of Discharge [...] taking ibuprofen for surgical pain 01/22/2021 omega 0-sut-inx-fish oil 1,000 mg (120 mg-180 mg) capsule [...] mouth. 023 documented as of this encounter Consult Notes * Janette Haley P.A.-Eileen., M.S. - 07/01/2023 1:00 PM CDT SUBJECTIVE REQUESTING PROVIDER Eloina Alarcon M.D. CHIEF COMPLAINT/REASON FOR CONSULT 1. 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 HISTORY OF PRESENT ILLNESS Ms. Susan Ramirez is a 62-year-old female with metastatic ovarian carcinoma, who presents today for an opinion regarding the role of radiation therapy in the management of the patient's disease. 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 No evidence of metastatic disease. Multiple simple intrahepatic cysts measuring up to 5 cm. No solid suspicious intrahepatic mass. 5.8 cm circumscribed right ovarian cyst. Pelvic ultrasound recommended for further evaluation. Thiswill likely be best evaluated with transvaginal technique. 11/03/2020 Critical Imaging US Pelvis IMPRESSION: Large complex right ovarian cyst with solid and cystic components measuring 7.6 x 6.6 x 5.9 cm. No internal vascularity. This likely is a large hemorrhagic cyst. Further evaluation with pelvic MRI, however, is recommended due to the large size of this lesion in a postmenopausal patient. 11/14/2020 Critical Imaging MR Pelvis IMPRESSION: 1. Complex unilocular cystic lesion in the right ovary is likely and this demonstrates an area of mural nodularity with enhancement. 2. In a postmenopausal female and ovarian neoplasm is probably not excluded. Gynecologic evaluation suggested and would consider excision, at a minimum very close interval follow-up. Also correlate with CA-125. 3. No signs of obvious lymph node enlargement in the pelvis ascites or obvious additional peritoneal mass. 01/20/2021 Surgery and Procedures Exploratory laparotomy, abdominal hysterectomy, and bilateral salpingo- oophorectomy was performed by Dr. Danette Bowser. FINAL DIAGNOSIS A. Cervix, 7 o'clock, biopsy; Negative for tumor. B. Endometrium, curettage: Scant benign endometrial tissue in a background of abundant mucus. C. Endometrium, polypectomy: Benign endometrial polyp. D. 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 See comment and synoptic report. E. Ovary and fallopian tube, left, salpingo-oophorectomy: Benign fallopian tube and ovary. Negativefor tumor. F. Uterus, hysterectomy: Benign uterus and cervix. Negative for tumor. G. Omentum, omentectomy: Negative for tumor. A single (1) lymph node is negative for tumor. COMMENT Immunohistochemical stains demonstrate that the malignant cells are diffusely positive for PAX8, WT1, p16, and negative for GATA3. p53 shows a wild type staining pattern. 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 SYNOPTIC REPORT : Ovarian, Fallopian Tube, and Peritoneum Procedure: Total hysterectomy and bilateral salpingo-oophorectomy Specimen Integrity Right Ovary: Capsule intact Left Ovary: Capsule intact Right Fallopian Tube: Serosa intact Left Fallopian Tube: Serosa intact Tumor Site: Right ovary and fallopian tube Ovarian Surface Involvement: Present Fallopian Tube Surface Involvement: Present Tumor Size: Greatest dimension: 7 cm Histologic Type: Serous carcinoma Histologic Grade WHO Grading System: G3 Two-Tier Grading System: High Implants: Not identified Other Tissue/Organs Involvement: Not applicable Largest Extrapelvic Peritoneal Focus: Not applicable Peritoneal/Ascitic Fluid: Unknown Treatment Effect: Not applicable Regional Lymph Nodes Number of Lymph Nodes Examined: 2 Number of Nodes with Metastasis Greater than 10 mm: 0 Number of Nodes with Metastasis 10 mm or less: 0 Number of Nodes with Isolated Tumor Cells: 0 Size of Largest Metastatic Deposit: 0 mm Location of Largest Deposit: 0 Pathologic Staging (AJCC, 8th edition): TNM Descriptors: No applicable Primary tumor: pT2a Regional lymph nodes: pN0 Distant Metastasis: Not applicable FIGO Stage (2015): IIA 01/20/2021 Biopsy/Pathology A. Peritoneal, Pelvic, washing (ThinPrep/cell block): Positive for malignancy. Metastatic adenocarcinoma of Mullerian origin. See comment. Comment: Immunohistochemical staining performed on the cell block material (A1) shows the cell of interest are positive for MOC31, BerEP4 and PAX8, while negative for D2-40 and calretinin, supporting the above diagnosis. 01/20/2021 Pathologic Stage Staging form: Ovary, Fallopian Tube, And Primary Peritoneal Carcinoma, AJCC 8th Edition - Pathologic stage from 01/20/2021: FIGO Stage IIA, calculated as Stage Unknown (pT1c3, pNX, cM0) Stage prefix: Initial diagnosis Histologic grade (G): G3 Histologic grading system: 4 grade system 01/28/[address] Abdomen/Pelvis IMPRESSION: 1. Postoperative changes of recent abdominal hysterectomy and bilateral salpingo-oophorectomy for ovarian neoplasm. 4.6 cm organize hyperdense collection along the right pelvic sidewall most compatible with postoperative hematoma. No evidence of superinfection. 2. Dilation of multiple loops of small bowel up to 3.2 cm in greatest diameter. Possible transitionpoint in the left midabdomen, however this may represent postoperative ileus given recent surgery. 3. Ill-defined soft tissue stranding and nodularity in the omentum is likely related to recent surgery, however attention on follow-up is recommended to exclude carcinomatosis given the recently resected ovarian lesion. 02/21/2021 - 06/07/2021 Chemotherapy Carboplatin and Taxol x 6 cycles. 03/06/2021 Genetic Testing and Tumor Genotyping [facility] Testing: VUS C.2012 C T heterozygous, cleared of uncertain significance 07/26/[address] chest, abdomen, pelvis consistent with enlarged posterior mediastinal lymph nodes, mildly enlarged retroperitoneal lymph nodes. 08/15/2022 Critical Imaging PET-CT IMPRESSION: Intense FDG uptake within retroperitoneal, mediastinal, left supraclavicular lymphadenopathy, suspicious for marquis metastases. 08/28/2022 Biopsy/Pathology Ultrasound-guided left supraclavicular lymph node biopsy. A. Lymph node, Neck, Left, fine needle aspiration (smears/core biopsy): Positive for malignancy. Metastatic adenocarcinoma consistent with patient's known high grade serous carcinoma. Immunostains are positive for ER (focal) and PAX8, supporting the diagnosis. 09/12/2022 - 01/01/2023 Chemotherapy Carboplatinum and paclitaxel x 6 cycles. 01/30/[address] chest, abdomen, pelvis was unremarkable. 06/20/2023 Critical Imaging PET-CT scan demonstrated a 7 mm left thoracic inlet supraclavicular lymph node, SUV max 15.04. 9 mmleft thoracic inlet lymph node, SUV max 10.31. Retroperitoneal lymph node, largest measuring 9-10 mm, SUV max 15.01. 07/08/2023 - Radiation Therapy Radiation Therapy Treatment Details (Noted on 06/27/2023) Sites: Supraclavicular fossa, Bilateral Retroperitoneum Technique: No technique specified Goal: Palliative Planned Treatment Start Date: 07/08/2023 INTERVAL HISTORY: The patient was seen and examined today with Dr. Kemp. The patient reports doing well overall. She rates her fatigue as 4/10 in severity. She reports having increased fatigue with her previous chemotherapy treatments, but the fatigue is now improving. She reports stable occasional shortness of breath with activities, such as climbing stairs. She deniescough. She denies any areas of pain. She reports eating well. She denies nausea or vomiting. She reports regular bowel movements. The patient has received previous radiation therapy to the left breast, as detailed above. She denies a history of connective tissue disorders or inflammatory bowel disease. Her ECOG performance status is 1. REVIEW OF SYSTEMS Review of systems was negative except as documented above. 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) Reflux Esophageal Rhinitis Allergic SURGICAL HISTORY Past Surgical History: Procedure Laterality Date ARTHROPLASTY CARPOMETACARPAL JOINT (CMC) Bilateral DILATATION AND CURETTAGE N/A 01/20/2021 Procedure: DILATATION, CURETTAGE.; Surgeon: Danette Bowser M.D.; Location: [facility] OR EXPLORATORY LAPAROTOMY N/A 01/20/2021 Procedure: EXPLORATORY LAPAROTOMY; Surgeon: Danette Bowser M.D.; Location: [facility] OR HYSTEROSCOPY N/A 01/20/2021 Procedure: DIAGNOSTIC HYSTEROSCOPY.; Surgeon: Danette Bowser M.D.; Location: [facility] OR KNEE SURGERY Bilateral OMENTECTOMY N/A 01/20/2021 Procedure: OMENTECTOMY; Surgeon: Danette Bowser M.D.; Location: [facility] OR OPERATIVE LAPAROSCOPY N/A 01/20/2021 Procedure: OPERATIVE LAPAROSCOPY.; Surgeon: Danette Bowser M.D.; Location: [facility] OR REDUCTION BREAST SALPINGO - OOPHORECTOMY Bilateral 01/20/2021 Procedure: SALPINGO - OOPHORECTOMY.; Surgeon: Danette Bowser M.D.; Location: [facility] OR TOTAL HYSTERECTOMY N/A 01/20/2021 Procedure: ABDOMINAL HYSTERECTOMY; Surgeon: Danette Bowser M.D.; Location: [facility] OR TYMPANOSTOMY WISDOM TOOTH EXTRACTION FAMILY HISTORY Family History Problem Relation Age of Onset Lymphoma Sister Melanoma Brother Prostate cancer Brother SOCIAL HISTORY Social History Socioeconomic History Marital status: Single Highest education level: 12th grade Occupational History Employer: [employer] Tobacco Use Smoking status: Never Smokeless tobacco: Never Vaping Use Vaping Use: never used Substance and Sexual Activity Alcohol use: Yes Comment: Rare OBJECTIVE BP 136/69 (BP Location: Right arm, Patient Position: Sitting, Cuff Size: Large) Pulse 93 Temp 36.9 ??C (Temporal) Wt 97.9 kg BMI 42.37 kg/m?? PHYSICAL EXAMINATION General: Patient is alert and oriented in no apparent distress. Lungs: Clear to auscultation bilaterally. Heart: Regular rate and rhythm. Lymph: No palpable left supraclavicular or infraclavicular lymphadenopathy. ASSESSMENT / PLAN #1 Metastatic ovarian carcinoma, metastatic to chest and abdomen, s/p partial response to chemotherapy #2 History of a Stage IB (cT2, cN0, cM0, G2, ER+, HI+, HER2-) left breast cancer, s/p surgery #3 Hypofractionated radiotherapy to the left breast and cavity completed on June 07, 2020 I had a detailed discussion with the patient regarding her metastatic ovarian cancer diagnosis. We reviewed her oncologic history as detailed above. We discussed the risks, benefits, and alternativesof radiotherapy in this setting. Dr. Kemp offered stereotactic body radiation therapy (SBRT) to the areas of persistent disease in the left upper chest and para-aortic region in 5 fractions to eachsite. I discussed the logistics as well as the acute and chronic side effects of treatment in detail. Theacute side effects are common and include, but are not limited to, fatigue, shortness of breath, cough, skin irritation, pain and/or difficulty with swallowing, musculoskeletal aches/pains from immobilization, nausea/vomiting, and bowel frequency/urgency with possible diarrhea. Delayed side effectsof treatment could include, but are not limited to, radiation pneumonitis and chest wall pain. Long-term side effects could include, but are not limited to, heart damage with left-sided treatment, ulceration or narrowing of the esophagus, broken rib, hemorrhage of a blood vessel, spinal cord damage, brachial plexopathy, chronic shortness of breath, bronchial collapse, bowel obstruction, kidney damage, and secondary malignancy. The patient was provided with a written summary of recommendations. Her questions were answered to her verbalized satisfaction. The patient reports that she has Compazine available at home to use for nausea/vomiting, if needed. After discussion, the patient verbally stated that she would like to proceed with radiation treatment. She signed consent. She is scheduled for CT simulation today. Dr. Kemp also met with the patient today, please see her attestation for details. The patient was provided with our contact information. She will contact us with questions or concerns. She verbally expressed her understanding of theplan. EDUCATION: Ready to learn, no apparent learning barriers were identified; learning preferences include listening. Explained diagnosis and treatment plan; patient expressed understanding of the content. CONSENT: Discussed the risks, benefits, alternatives, and the necessity of other members of the healthcare team participating in the procedure. All questions answered and consent given. PRIMARY PROVIDER Sara Greer M.D. I personally spent 50 minutes in care of the patient today. Time includes both non face to face andface to face patient care. Signed by: Janette Haley P.A.-C., M.S. 07/01/2023 1:56 PM CDT [facility] [address] [place] [address] Associated attestation - Sophia Kemp M.D. - 07/01/2023 4:54 PM CDT RADIATION ONCOLOGY CONSULT I saw and evaluated the patient and participated in the garcia portions of the service. I reviewed thedocumentation of Ms. Janette Haley PA-C, and agree with the findings and plan. Please see Ms. Haley's detailed note for the patient's initial presentation and work-up. Briefly, Ms. Ramirez a 62 year old female who is well known to me from her prior left breast cancer, but now presents to consider consolidative radiation for her metastatic ovarian carcinoma that has had a partial response to chemotherapy with PET avidity noted in the thoracic inlet/supraclavicular lymph nodes and some residual disease in the retroperitoneal lymph nodes. I have independently reviewed herimaging, operative and pathology reports. On exam, she appears well. Detailed exam as per Carmelina . We discussed the findings above and below in this note with the patient. We discussed her treatmentalternatives including observation vs adding radiation therapy. She had more extensive disease, buthas persistent disease in the left upper chest and the para-aortic region. She has had prior radiation and we will have to be careful to not overlap or minimize low dose overlap. I think it is reasonable to offer SBRT consolidation to these areas of persistent disease. We discussed the rationale, risks, side effects and goals of radiation therapy. We discussed the acute as well as longterm risks, including, but not limited to fatigue, esophagitis, nausea/vomiting,rib fracture, chest wall pain, brachial plexopathy, radiation pneumonitis (10-15% risk with a 1% mortality), and bowel changes and bowel obstruction as well as very small risks for kidney damage or secondary malignancies. She understood and her questions were answered. She wished to proceed with treatment. We tentatively plan on delivering 3000 cGy in 5 every other day fractions starting July 08, 2023. My thanks to Drs. Alarcon and Percy for the opportunity to participate in this patient's care. EDUCATION Ready to learn, no apparent learning barriers were identified; learning preferences include listening. Explained diagnosis and treatment plan; patient expressed understanding of the content. CONSENT Discussed the risks, benefits, alternatives, and the necessity of other members of the healthcare team participating in the procedure. All questions answered and consent given. DIAGNOSIS #1 Metastatic ovarian carcinoma, metastatic to chest and abdomen, s/p partial response to chemotherapy #2 History of a Stage IB (cT2, cN0, cM0, G2, ER+, HI+, HER2-) left breast cancer, s/p surgery #3 Hypofractionated radiotherapy to the left breast and cavity completed on June 07, 2020 Signed by: Sophia Kemp M.D. 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
--- OUTSIDE RECORDS SUMMARY | 2023-09-04 07:29 | XMS_ITS | Encounter Summary ---
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 [address] [place] [address] [facility] Region Referral ID Status Reason Start Date Expiration Date V isits Requested Visits Authorized [id number] Authorized 06/27/2023 06/26/2024 10 10 ERN DESIGNER * Outpatient (Routine) - Authorized Specialty Diagnoses / Procedures Referred By Sanjuana t Referred To Contact Radiation Oncology Sophia Kemp M.D. [address] [place] [address] 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 [address] [place] [address] 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 [address] [place] [address] [facility] [address] [place] [phone] Referral ID Status Reason Start Date Expiration Date Visits Re quested Visits Authorized [id number] Closed 07/08/2023 06/26/2024 5 5 ERN DESIGNER Encounter Details Date Type Department Care Team (Late st Contact Info) Description 06/27/2023 Orders Only Department of Radiation Oncology in [place], [place] [address] [place] [phone] Janette Haley P.A.-C., M.S. 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 More than three times a week 05/20/2020 How often do you get togethe r with friends or relatives? Three times a week 05/20/2020 How often do you attend chur ch or islam services? Patient declined 05/20/2020 Do you belong to any clubs o r organizations such as nondenominational groups, unions, fraternal or athletic groups, or [...] more drinks on one occasion? 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 07/01/2023 ??3:18 PM Initial Rad Onc Treatment Planning CT Simulation Performed by: Sophia Kemp M.D. Authorized by: Sophia Kemp M.D. ?? Sophia Kemp M.D. 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
--- OUTSIDE RECORDS SUMMARY | 2023-09-04 07:29 | XMS_ITS | Encounter Summary ---
Author Name Unknown Organization [facility] Address [address] [place] [address] Care Team Providers Care Retail Sales Representative Name Role Phone Elsewhere, Pcp Primary Care Provider Unavailabl e Encounter Details Date Type Department Care Team (Late st Contact Info) Description 07/24/2023 Clinical Communication Department of Radiation Oncology in [place], [place] [address] [place] [address] Sophia Kemp M.D. [address] [place] [address] Social History Tobacco Use Types Packs/Day Years [...] often do you attend chur ch or yarsani services? Patient declined 05/20/2020 Do you belong to any clubs o r organizations such as tenriism groups, unions, fraternal or athletic groups, or [...] Sex Assigned at Female 06/28/2023 7:51 PM ARBORICULTURIST Gender Identity Female 06/28/2023 7:52 PM ARBORICULTURIST Sexual Orientation Straight 06/28/2023 7: 52 PM ARBORICULTURIST documented as of this encounter Miscellaneous Notes * Telephone Encounter - Janette Haley P.A.-C., M.S. - 07/24/2023 2:02 PM CDT I called the patient today and spoke to her directly. She reports developing pain of the esophagus over the weekend. She rates the pain as severe as 7-8/10 when swallowing. She also reports persistent discomfort in-between eating, but not as severe. She reports drinking well, including protein shakes, but she has had decreased intake of food due to the pain. She has tried taking Aleve a couple oftimes without much benefit. We discussed the use of scheduled ojvu-jad-oebykom pain medications forfirst-line pain management. She denies any contraindications to taking Tylenol or ibuprofen. She was educated on the dosages and timing of taking these medications as well as the ability to alternatemedications, if needed, for pain management. She was also educated on the maximum dosages of the medications. In addition, we discussed use of Magic Mouthwash. We discussed the timing of taking MagicMouthwash in relation to eating/drinking. The patient denies a history of atrial fibrillation or other heart arrhythmias. The medication should be discontinued if she would develop a fast or irregular heart beat. We discussed the importance of maintaining good nutritional and fluid intake. The patient was in agreement with trying scheduled Tylenol or ibuprofen and use of Magic Mouthwash up to four times daily for pain management. If her pain is not adequately controlled with this regimen, she was asked to contact our clinic back for further discussion on additional options, especially prior to the weekend. She verbally expressed her understanding of the plan. Janette Haley P.A.-C., M.S. * Telephone Encounter - Gregoria Ulrich - 07/24/2023 11:43 AM CDT Other Reason for Call Caller: Patient Relationships to patient: self Reason for call: Patient called stating that her esophagus is very sore and she states that it is hard to swallow. She is wondering if something can be prescribed to help her. She would like a call back at [phone]. documented in this encounter Plan of Treatment Not on file documented as of this encounter Visit Diagnoses Not on filedocumented in this encounter Care Teams Retail Sales Representative Relationship Specialty Start Date End Date Elsewhere, Pcp PCP - General Family Medicine 01/20/21 documented as of this encounter
--- OUTSIDE RECORDS SUMMARY | 2023-09-04 07:29 | XMS_ITS | Clinical Summary ---
Author Name Unknown Organization [facility] Address [address] [place] [address] Care Team Providers Care File Clerk Name Role Phone Elsewhere, Pcp Primary Care Provider Unavailabl e Source Comments Patient records contain information from all sites at [facility]. For routine questions regarding patient records, call [phone] during business hours, M-F 8:00 AM - 5:00 PM Central Time. Record requests for emergency care only can be directed to [phone] at any time.[facility] Allergies Active Allergy Reactions Criticality Noted Date Comments House Dust Mite Other (see comments) 09/23/2012 found at allergy test Sulfa (Sulfonamide Antibiotics) Other (see comments),GI intolerance Low 12/17/2006 nausea Medications Medication Sig Dispensed Refills Start Date End Date Status FLUoxetine (PROzac) 10 mg capsule Take 10 mg by mouth at bedtime. 02/29/2020 Active levothyroxine (SYNTHROID, LEVOTHROID) 125 mcg tablet Take 125 mcg by mouth every morning before breakfast. 02/29/2020 Active omega 9-tpg-mwm-fish oil 1,000 mg (120 mg-180 mg) capsule Take 2,000 mg by mouth every evening. 01/05/2019 Active omeprazole (PriLOSEC) [address] capsule Take 40 mg by mouth every morning before breakfast. 02/29/2020 Active multivitamin (multivitamin) tablet Take 1 tablet by mouth at bedtime. Active calcium carbonate-vitamin D3 (Calcium 500 + D) 1,250 mg (500 mg calcium)-5 mcg (200 Unit) per tablet Take 1 tablet by mouth 2 (two) times a day with meals. Active anastrozole (ARIMIDEX) 1 mg tablet Take 1 mg by mouth at bedtime. Swallow whole with a drink of water. Active eucalyptus/peppermin t oil (PONARIS NASAL) Administer 1 puff into nostril(s) daily as needed (dryness). Active naproxen-diphenhydrA MINE 220-25 mg tablet Take 1 tablet by mouth at bedtime as needed (sleep). HOLD while taking ibuprofen for surgical pain 01/22/2021 Active LORazepam (ATIVAN) 0.5 mg tablet Take 0.5 mg by mouth every 4 (four) hours as needed. 09/12/2022 Active magnesium oxide (MAG-OX) 400 mg (241.3 mg magnesium) tablet Take 1 tablet by mouth daily. 01/09/2021 Active ondansetron (ZOFRAN) 4 mg tablet 08/30/2022 Active prochlorperazine (COMPAZINE) 5 mg tablet Take 5 mg by mouth every 4 (four) hours as needed. 08/30/2022 Active VITAMIN B COMPLEX ORAL Take 1 tablet by mouth. 10/01/2022 Active levothyroxine 125 mcg/mL solution Take 125 mcg by mouth. 10/16/2021 Active anastrozole (ARIMIDEX) 1 mg tablet Take 1 mg by mouth. 06/21/2022 Activ e diphenhydramine-lido doug 2 %-antacid (mw) Take 10 mL by mouth 4 (four) times a day as needed (for pain). Do not eat or drink for 15 minutes after use. 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 07/24/2023 Clinical Communication Department of Radiation Oncology in [address] [address] Sophia Kemp M.D. 07/19/2023 1:14 PM CDT - 07/19/2023 11:59 PM CDT Hospital Encounter Department of Radiation Oncology in [address] [address] Sophia Kemp M.D. Discharge Disposition: Home or Self Care 07/19/2023 Documentation Department of Radiation Oncology in [address] [address] Sophia Kemp M.D. 07/17/2023 1:46 PM CDT - 07/17/2023 11:59 PM CDT Hospital Encounter Department of Radiation Oncology in [address] [address] Sophia Kemp M.D. Discharge Disposition: Home or Self Care 07/15/2023 1:42 PM CDT - 07/15/2023 5:08 PM CDT Hospital Encounter Department of Radiation Oncology in [address] [address] Sophia Kemp M.D. Malignant Neoplasm Of Fallopian Tube Right (HCC) 07/15/2023 1:42 PM CDT - 07/15/2023 11:59 PM CDT Hospital Encounter Department of Radiation Oncology in [address] [address] Sophia Kemp M.D. Discharge Disposition: Home or Self Care 07/11/2023 2:07 PM CDT - 07/11/2023 11:59 PM CDT Hospital Encounter Department of Radiation Oncology in [address] [address] Sophia Kemp M.D. Discharge Disposition: Home or Self Care 07/09/2023 1:40 PM CDT - 07/09/2023 11:59 PM CDT Hospital Encounter Department of Radiation Oncology in [address] [address] Sophia Kemp M.D. Discharge Disposition: Home or Self Care 07/01/2023 2:24 PM CDT - 07/01/2023 5:05 PM CDT Hospital Encounter Department of Radiation Oncology in [address] [address] Sophia Kemp M.D. Malignant Neoplasm Of Fallopian Tube Right (HCC) 07/01/2023 1:39 PM CDT - 07/01/2023 2:23 PM CDT Hospital Encounter Department of Radiation Oncology in [address] [address] Sophia Kemp M.D. Grieman, Kari A, RCarmelinaN. Malignant Neoplasm Of Fallopian Tube Right (HCC) (Primary Dx) 07/01/2023 12:43 PM CDT - 07/01/2023 1:38 PM CDT Hospital Encounter Department of Radiation Oncology in [place], [place] [address] [place] [address] Sophia Kemp M.D. Malignant Neoplasm Of Fallopian Tube Right (HCC) (Primary Dx) 06/27/2023 Orders Only Department of Radiation Oncology in [place], [place] [address] [place] [address] Janette Haley P.A.-C., M.S. Malignant Neoplasm Of Fallopian Tube Right (HCC) (Primary Dx) from Last 3 Months Family History Medical History Relation Name Comments Melanoma Brother 1 Prostate cancer Brother 2 Lymphoma Sister Relation Name Status Comments Brother 1 Brother 2 Sister Social History Tobacco Use Types Packs/Day Years [...] How often do you attend chur or lutheran services? Patient declined 05/20/2020 Do you belong to any clubs o r organizations such as jew groups, unions, fraternal or athletic groups, or [...] more drinks on one occasion? Never 05/20/2020 [facility] - Occupational [...] Sex Assigned at Female 06/28/2023 7:51 PM LEAD SECURITY OFFICER Gender Identity Female 06/28/2023 7:52 PM LEAD SECURITY OFFICER Sexual Orientation Straight 06/28/2023 7: 52 PM LEAD SECURITY OFFICER Last Filed Vital Signs Vital Sign Reading Time Taken Comments Blood Pressure 163/115 07/15/2023 3:05 PM CDT Pulse 91 07/15/2023 3:05 PM CDT Temperature 36.2 ??C (97.1 ??F) 07/15/2023 3:05 PM CD T Respiratory Rate 18 01/29/2021 12:30 PM CDT Oxygen Saturation 96% 01/29/2021 12:30 PM CDT Inhaled Oxygen Concentration - - Weight 98.8 kg (217 lb 13 oz) 07/15/2023 3:05 PM CDT Height 152 cm (4' 11.84) 03/01/2021 11:13 AM CS T Body Mass Index 42.76 03/01/2021 11:13 AM LEAD SECURITY OFFICER Plan of Treatment Health Maintenance Due Date Last Done Comments CT Colonography 1959 Cologuard 1959 Colonoscopy 1959 Colorectal Cancer Screening 1959 FIT 1959 HIV Screening 1959 Hepatitis C Screening 1959 Pneumococcal vaccine (0-64 years) (1 of 2 - PCV) 11/04/1965 Zoster Vaccines (1 of 2) 11/04/1978 Thyroid Stimulating Hormone (TSH) test for thyroid function 08/23/2022 08/23/2021, 04/11/2020, 02/19/2020, Additional history exists COVID-19 Vaccine ( season) 2022 03/08/2022, 03/31/2021, 07/28/2020, Additional history exists Influenza Vaccine (#1) 2023 , 01/12/2021, 01/26/2020, Additional history exists Depression Screening (Annual PHQ-2) 04/22/2023 DTaP,Tdap,and Td Vaccines (2 - Td or Tdap) 11/27/2023 11/26/2013, 09/14/2004 Fasting Glucose for Diabetes Screening 01/30/2024 01/29/2021, 01/28/2021, 01/21/2021, Additional history exists Mammogram 05/23/2024 05/23/2023, 02/0 04/2023, 05/04/2022, Additional history exists Lipid (Cholesterol) Screening 02/18/2025 02/19/2020, 01/05/2019, 03/12/2018 HPV Vaccines Aged Out No longer eligi ble based on patient's age to complete this topic Medical Devices Implanted Type Area Assistant Account Manager Device Identifier Shelf Expiration Date Model / Serial / Lot Knee Implant Knee Implant Bilateral: Abdomen Procedures Procedure Name Priority Date/Time Associated Diagnosis Comments ARIA COURSE COMPLETE TREATMENT INFORMATION Routine 07/19/2023 2:20 PM CDT ARIA DAILY TREATMENT INFORMATION Routine 07/19/2023 2:20 PM CDT ARIA DAILY TREATMENT INFORMATION Routine 07/17/2023 2:43 PM CDT ARIA DAILY TREATMENT INFORMATION Routine 07/15/2023 2:51 PM CDT ARIA DAILY TREATMENT INFORMATION Routine 07/11/2023 3:07 PM CDT ARIA DAILY TREATMENT INFORMATION Routine 07/09/2023 2:51 PM CDT INITIAL RAD ONC TREATMENT PLANNING CT SIMULATION Routine 07/01/2023 2:30 PM CDT Malignant Neoplasm Of Fallopian Tube Right (HCC) OUTSIDE NM PET Routine 06/20/2023 2:15 PM LEAD SECURITY OFFICER BI BREAST SCREENING BILATERAL WITH TOMOSYNTHESIS RAD - Routine (most inpatients and all outpatients) 05/23/2023 10:48 AM LEAD SECURITY OFFICER EXTI THYROID-STIMULATING HORMONE-SENSITIVE (S-TSH), S Routine 08/23/2021 1:55 PM CDT BASIC METABOLIC PANEL, S/P STAT 01/29/2021 6:42 AM CDT EXTI LIPID PANEL W REFLEX MEASURED LDL Routine 02/19/2020 1:58 PM CDT from Last 3 Months or Most Recently Relevant to Health Maintenance Results * Aria Course Complete Treatment Information (07/19/2023 2:20 PM CDT) Course ID [id number] [id number] [place] ARIA Course Start Date 06/28/2023 16:34 CDT [place] ARIA Course End Date 07/26/2023 13:47 CDT [place] [facility]A First Treatment Date 07/09/2023 14:26 CDT [place] ARIA Last Treatment Date 07/19/2023 14:20 CDT [place] [facility]A Treatment Elapsed Days 10 [facility] Reference Point [id number] retrox ESPINOZA ARIA Dosage Given to Date cGy 3000 ESP[place] ARIA Reference Point [id number] lavX ESPINOZA ARIA Dosage Given to Date cGy 3000 [place] ARIA Plan ID [id number] ESP[place]ZA ARIA Fractions Treated to Date 5 ESP[place]ZA ARIA Planned Total Fractions 5 ESP[place] ARIA Prescribed Dose Per Fraction 600 ESPINOZA ARIA Prescription Dose in cGy 3000 [place] ARIA Plan Primary Reference Point [id number] retrox ESPINOZA ARIA Plan ID [id number] ESP[place] ARIA Fractions Treated to Date 5 [place] ARIA Planned Total Fractions 5 [place] ARIA Prescribed Dose Per Fraction 600 ESP[place]ZA ARIA Prescription Dose in cGy 3000 [place] ARIA Plan Primary Reference Point [id number] lavX [place] ARIA 07/19/2023 2:20 PM CDT Provider Not In System RADIATION ONCOLOG Y ORDERABLES ESPINOZA ARIA na * Aria Daily Treatment Information (07/19/2023 2:20 PM CDT) Only the most recent of5 resultswithin the time period is included. Course ID [id number] [id number] [place] ARIA Course Start Date 06/28/2023 16:34 CDT [place] ARIA First Treatment Date 07/09/2023 14:26 CDT [place] ARIA Last Treatment Date 07/19/2023 14:20 CDT [place] ARIA Treatment Elapsed Days 10 [facility] ARIA Reference Point [id number] retrox ESPINOZA ARIA Dosage Given to Date cGy 3000 ESPINOZA ARIA Session Dosage Given 600 ESPINOZA ARIA Reference Point [id number] lavX ESPINOZA ARIA Dosage Given to Date cGy 3000 ESPINOZA ARIA Session Dosage Given 600 ESPINOZA ARIA Plan ID [id number] ESPINOZA ARIA Fractions Treated to Date 5 ESPINOZA ARIA Planned Total Fractions 5 ESPINOZA ARIA Prescribed Dose Per Fraction 600 [place] ARIA Prescription Dose in cGy 3000 ESPINO[place] ARIA Plan Primary Reference Point [id number] retrox ESPINOZA ARIA Plan ID [id number] [facility] ARIA Fractions Treated to Date 5 [facility] ARIA Planned Total Fractions 5 [place] ARIA Prescribed Dose Per Fraction 600 ESPINOZA ARIA Prescription Dose in cGy 3000 [place] ARIA Plan Primary Reference Point [id number] lavX ESPINOZA ARIA 07/19/2023 2:20 PM CDT Provider Not In System RADIATION ONCOLOG Y ORDERABLES Performing Organization Address [facility] Co de Phone Number OLGA AGUIRRE na * Initial Rad Onc Treatment Planning CT Simulation (07/01/2023 2:30 PM CDT) Narrative OLGA AGUIRRE - 07/01/2023 2:30 PM CDT Genia Moore ? 07/01/2023 ??3:18 PM Initial Rad Onc Treatment Planning CT Simulation Performed by: Sophia Kemp M.D. Authorized by: Sophia Kemp M.D. ?? Sophia Kemp M.D. RADIATION ONCOLOG Y ORDERABLES Performing Organization Address [facility] de Phone Number OLGA colindres * PET skull to mid thigh-Outside NM Pet (06/20/2023 2:15 PM LEAD SECURITY OFFICER) 06/20/2023 2:14 PM LEAD SECURITY OFFICER Narrative [facility]IPA - 06/20/2023 4:19 PM LEAD SECURITY OFFICER This order has been created and auto-finalized to support the import of outside images. If available, original interpretation can be found on the Media Tab in Chart Review, in Document Viewer, or as an image in QREADS. If a re-interpretation or overread is required please follow defined workflow. ?? Provider Not In System IMG NM PROCEDURES Performing Organization Address [facility] de Phone Number CHUCK NA * (ABNORMAL) Basic Metabolic Panel (01/29/2021 6:42 AM CDT) Potassium, P 4.2 3.6 - 5.2 mmol/L 01/29/2021 7:34 AM CDT DTL Sodium, P 140 135 - 145 mmol/L 01/29/2021 7:34 AM CDT DTL Chloride, P 107 98 - 107 mmol/L 01/29/2021 7:34 AM CDT DTL Bicarbonate, P 24 22 - 29 mmol/L 01/29/2021 7:34 AM CDT DTL Anion Gap, P 9 7 - 15 01/29/2021 7:34 AM CDT DTL BUN (Blood Urea Nitrogen), P 7 6 - 21 mg/dL 01/29/2021 7:34 AM CDT DTL Creatinine 0.71 0.59 - 1.04 mg/dL 01/29/2021 7:34 AM CDT DTL eGFR-Black/Afri can Panamanian >90 >=60 mL/min/BSA 01/29/2021 7:34 AM CDT DTL Comment: ----ADDITIONAL INFORMATION---- Estimated GFR calculated using the 2009 CKD_EPI creatinine equation. eGFR Non-Black/Afric an Panamanian >90 >=60 mL/min/BSA 01/29/2021 7:34 AM CDT DTL Comment: ----ADDITIONAL INFORMATION---- Estimated GFR calculated using the 2009 CKD_EPI creatinine equation. Calcium, Total, P 8.3(L) 8.8 - 10.2 mg/dL 01/29/2021 7:34 AM CDT DTL Glucose, P 93 70 - 140 mg/dL 01/29/2021 7:34 AM CDT DTL Blood (Blood, Venous) 01/29/2021 6:42 AM CDT 01/29/2021 7:01 AM CDT Emily Turner M.D., M.S. LAB BLOOD ADD -ON [facility] [address] [place] [address], [facility] [address] [place] [address] from Last 3 Months or Most Recently Relevant to Health Maintenance Advance Directives For more information, please contact: [phone] * Full Code (Latest Code Status on File) Date Activated Date Inactivated Comments 01/28/2021 9:02 PM 01/29/2021 2:50 PM Question Answer Comments Full Code: Not Discussed Due to: Not medically appropriate * Full Code Date Activated Date Inactivated Comments 01/20/2021 6:32 PM 01/22/2021 4:18 PM Question Answer Comments Full Code: Discussed * Full Code Date Activated Date Inactivated Comments 01/20/2021 8:51 AM 01/20/2021 6:32 PM Question Answer Comments Full Code: Discussed Care Teams File Clerk Relationship Specialty Start Date End Date Elsewhere, Pcp PCP - General Family Medicine 01/20/21
--- OUTSIDE RECORDS SUMMARY | 2023-09-04 07:29 | XMS_ITS | Encounter Summary ---
Author Name Unknown Organization [facility] Address [address] [place] [address] Care Team Providers Care Cone Cleaner Name Role Phone Elsewhere, Pcp Primary Care Provider Unavailabl e Reason for Visit * Radiation Therapy (Routine) - Closed Specialty Diagnoses / Procedures Referred By Sanjuana t Referred To Contact Diagnoses Malignant Neoplasm Of Fallopian Tube Right (HCC) Procedures Initial Rad Onc Treatment Planning CT Simulation Sophia Kemp M.D. [address] [place] [address] [facility] Region Referral ID Status Reason Start Date Expiration Date Visits Re quested Visits Authorized [id number] Closed 06/27/2023 06/26/2024 1 1 Encounter Details Date Type Department Care Team (Latest Contact Info) Description 07/01/2023 1:39 PM CDT - 07/01/2023 2:23 PM CDT Hospital Encounter Department of Radiation Oncology in [place], [place] [address] [place] [phone] Sophia Kemp M.D. [address] [place] [phone] Mara Wylie R.N. [address] [place] [phone] Malignant Neoplasm Of Fallopian Tube Right (HCC) [...] How often do you attend chur or mandaeism services? Patient declined 05/20/2020 Do you belong to any clubs o r organizations such as scientology groups, unions, fraternal or athletic groups, or [...] more drinks on one occasion? Never 05/20/2020 [facility] - Occupational [...] Sex Assigned at Female 06/28/2023 7:51 PM COMPLIANCE NURSE Gender Identity Female 06/28/2023 7:52 PM COMPLIANCE NURSE Sexual Orientation Straight 06/28/2023 7: 52 PM COMPLIANCE NURSE documented as of this encounter Last Filed Vital Signs Vital Sign Reading Time Taken Comments Blood Pressure - - Pulse - - Temperature - - Respiratory Rate - - Oxygen Saturation - - Inhaled Oxygen Concentration - - Weight 97.9 kg (215 lb 13.3 oz) 07/01/2023 1:57 PM CDT Height - - Body Mass Index 42.37 03/01/2021 11:13 AM COMPLIANCE NURSE documented in this encounter Medications at Time [...] taking ibuprofen for surgical pain 01/22/2021 omega 7-dap-qsd-fish oil 1,000 mg (120 mg-180 mg) capsule [...] mouth. 023 documented as of this encounter Progress Notes * Mara Wylie R.N. - 07/01/2023 2:00 PM CDT RN Central Line Assessment Central Line: Yes Line Type: IVAD Power Injectable: Yes Power Injectable Identifiers Used: ID Card, Chau Chain, or bracelet Tip Placement Verified: Yes Tip Placement Location: SVC Verified Date: November 12, 2022 Blood Return Verified: Yes documented in this encounter Plan of Treatment Not on file documented as of this encounter Visit Diagnoses Diagnosis Malignant Neoplasm Of Fallopian Tube Right (HCC)- Primary documented in this encounter Administered Medications Inactive Administered Medications - up to 3 most recent administrations Medication Order MAR Action Action Date Dose Rate Site heparin flush 500 Units 500 Units, intra-catheter, During hospitalization, line care, Prior to discharge, Starting on Sat07/01/23 at 1357, For 1 dose, Implanted Vascular Access Device (IVAD) Venous Non-Valved: Following saline flush prior to discharge. Given 07/01/2023 2:58 PM CDT 500 Units iohexoL 300 mg iodine/mL solution 140 mL (OMNIPAQUE) 140 mL, intravenous, Once in imaging, contrast, Starting on Sat07/01/23 at 1432, For 1 dose Given 07/01/2023 2:58 PM CDT 140 mL NaCl 0.9 % bolus 50 mL 50 mL, intravenous, at 1,500 mL/hr, Administer over 2 Minutes, Once, On Sat07/01/23 at 1500, For 1 dose New Bag 07/01/2023 2:58 PM CDT 50 mL 1500 mL/hr sodium chloride 0.9 % injection 10 mL 10 mL, intravenous, As needed, line care, Implanted Vascular Access Device (IVAD) Venous Non-Valved, Starting on Sat07/01/23 at 1357, Prior to and following infusion, between multiple consecutive infusions, and prior to blood sampling, Given 07/01/2023 2:58 PM CDT 10 mL Given 07/01/2023 2:57 PM CDT 10 mL documented in this encounter Care Teams Cone Cleaner Relationship Specialty Start Date End Date Elsewhere, Pcp PCP - General Family Medicine 01/20/21 documented as of this encounter
--- OUTSIDE RECORDS SUMMARY | 2023-09-04 07:29 | XMS_ITS | Referral Summary ---
Author Name Unknown Organization [facility] Address [address] [place] [address] Care Team Providers Care Membership Assistant Name Role Phone Elsewhere, Pcp Primary Care Provider Unavailabl e Source Comments Patient records contain information from all sites at [facility]. For routine questions regarding patient records, call [phone] during business hours, M-F 8:00 AM - 5:00 PM Central Time. Record requests for emergency care only can be directed to [phone] at any time.[facility] Encounters Date Type Department Care Team Description 07/24/2023 Clinical Communication Department of Radiation Oncology in [address] [phone] Sophia Kemp M.D. 07/24/2023 Clinical Communication Department of Radiation Oncology in [address] [address] Sophia Kemp M.D. 07/19/2023 Documentation Department of Radiation Oncology in [address] [phone] Sophia Kemp M.D. 07/19/2023 1:14 PM CDT - 07/19/2023 11:59 PM CDT Hospital Encounter Department of Radiation Oncology in [address] [address] Sophia Kemp M.D. Discharge Disposition: Home or Self Care 07/17/2023 1:46 PM CDT - 07/17/2023 11:59 PM CDT Hospital Encounter Department of Radiation Oncology in [address] [address] Sophia Kemp M.D. Discharge Disposition: Home or Self Care 07/15/2023 1:42 PM CDT - 07/15/2023 5:08 PM CDT Hospital Encounter Department of Radiation Oncology in [address] [address] Sophia Kemp M.D. 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 Discharge Disposition: Home or Self Care 07/11/2023 2:07 PM CDT - 07/11/2023 11:59 PM CDT Hospital Encounter Department of Radiation Oncology in [address] [address] Sophia Kemp M.D. Discharge Disposition: Home or Self Care 07/09/2023 1:40 PM CDT - 07/09/2023 11:59 PM CDT Hospital Encounter Department of Radiation Oncology in [address] [address] Sophia Kemp M.D. Discharge Disposition: Home or Self Care 07/01/2023 1:39 PM CDT - 07/01/2023 2:23 PM CDT Hospital Encounter Department of Radiation Oncology in [address] [address] Sophia Kemp M.D. 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 Patient declined 05/20/2020 Do you belong to any clubs o r organizations such as methodist groups, unions, fraternal or athletic groups, or [...] more drinks on one occasion? Never 05/20/2020 [facility] [place] of Occupat ional Health - Occupational Stress [...] Sex Assigned at Female 06/28/2023 7:51 PM CHARGE ACCOUNTS AUDIT CLERK Gender Identity Female 06/28/2023 7:52 PM CHARGE ACCOUNTS AUDIT CLERK Sexual Orientation Straight 06/28/2023 7: 52 PM CHARGE ACCOUNTS AUDIT CLERK Last Filed Vital Signs Vital Sign Reading [...] Body Mass Index 42.76 03/01/2021 11:13 AM CHARGE ACCOUNTS AUDIT CLERK Plan of Treatment Not on file Medical Devices Implanted Type Area Aircraft Armament Mechanic Device Identifier Shelf Expiration Date Model / [...] OUTSIDE NM PET Routine 06/20/2023 2:15 PM CHARGE ACCOUNTS AUDIT CLERK BI BREAST SCREENING BILATERAL WITH TOMOSYNTHESIS RAD - Routine (most inpatients and all outpatients) 05/23/2023 10:48 AM CHARGE ACCOUNTS AUDIT CLERK EXTI THYROID-STIMULATING HORMONE-SENSITIVE (S-TSH), S Routine 08/23/2021 1:55 PM CDT BASIC METABOLIC PANEL, S/P STAT 01/29/2021 6:42 AM CDT EXTI LIPID PANEL W REFLEX MEASURED LDL Routine 02/19/2020 1:58 PM CDT from Last 3 Months or Most Recently Relevant to Health Maintenance Results * Aria Course Complete Treatment Information (07/19/2023 2:20 PM CDT) [facility] Course ID [id number] ESPINOZA ARIA Course Start Date 06/28/2023 16:34 CDT ESPINOZA ARIA Course End Date 07/26/2023 13:47 CDT ESPINOZA ARIA First Treatment Date 07/09/2023 14:26 CDT ESPINOZA ARIA Last Treatment Date 07/19/2023 14:20 CDT ESPINOZA ARIA Treatment Elapsed Days 10 ESPINOZA ARIA Reference Point [id number] retrox ESPINOZA ARIA Dosage Given to Date cGy 3000 ESPINOZA ARIA Reference Point [id number] lavX ESPINOZA ARIA Dosage Given to Date cGy 3000 ESPINOZA ARIA Plan ID [id number] ESPINOZA ARIA Fractions Treated to Date 5 ESPINOZA ARIA Planned Total Fractions 5 ESPINOZA ARIA Prescribed Dose Per Fraction 600 ESPINOZA ARIA Prescription Dose in cGy 3000 ESPINOZA ARIA Plan Primary Reference Point [id number] retrox ESPINOZA ARIA Plan ID [id number] ESPINOZA ARIA Fractions Treated to Date 5 ESPINOZA ARIA Planned Total Fractions 5 ESPINOZA ARIA Prescribed Dose Per Fraction 600 ESPINOZA ARIA Prescription Dose in cGy 3000 ESPINOZA ARIA Plan Primary Reference Point [id number] lavX ESPINOZA ARIA 07/19/2023 2:20 PM CDT [...] Elapsed Days 10 ESPINOZA ARIA Reference Point [id number] retrox ESPINOZA ARIA Dosage Given to Date cGy 3000 ESPINOZA ARIA Session Dosage Given 600 ESPINOZA ARIA Reference Point [id number] lavX ESPINOZA ARIA Dosage Given to Date cGy 3000 ESPINOZA ARIA Session Dosage Given 600 ESPINOZA ARIA Plan ID [id number] ESPINOZA ARIA Fractions Treated to Date 5 ESPINOZA ARIA Planned Total Fractions 5 ESPINOZA ARIA Prescribed Dose Per Fraction 600 ESPINOZA ARIA Prescription Dose in cGy 3000 ESPINOZA ARIA Plan Primary Reference Point [id number] retrox ESPINOZA ARIA Plan ID [id number] ESPINOZA ARIA Fractions Treated to Date 5 ESPINOZA ARIA Planned Total Fractions 5 ESPINOZA ARIA Prescribed Dose Per Fraction 600 ESPINOZA ARIA Prescription Dose in cGy 3000 ESPINOZA ARIA Plan Primary Reference Point [id number] lavX ESPINOZA ARIA 07/19/2023 2:20 PM CDT Provider Not In System RADIATION ONCOLOG Y ORDERABLES Performing Organization Address City/[facility] Co de Phone Number LOGA AGUIRRE na * Initial Rad Onc Treatment Planning CT Simulation (07/01/2023 2:30 PM CDT) Narrative ESPINOZA BOOGIEA - 07/01/2023 2:30 PM CDT Genia Moore ? 07/01/2023 ??3:18 PM Initial Rad Onc Treatment Planning CT Simulation Performed by: Sophia Kemp M.D. Authorized by: Sophia Kemp M.D. ?? Sophia Kemp M.D. RADIATION ONCOLOG Y ORDERABLES Performing Organization Address [facility] Co de Phone Number OLGA AGUIRRE na * PET skull to mid thigh-Outside NM Pet (06/20/2023 2:15 PM CHARGE ACCOUNTS AUDIT CLERK) 06/20/2023 2:14 PM CHARGE ACCOUNTS AUDIT CLERK Narrative IIMS - 06/20/2023 4:19 PM CHARGE ACCOUNTS AUDIT CLERK This order has been created and auto-finalized to support the import of outside images. If available, original interpretation can be found on the Media Tab in Chart Review, in Document Viewer, or as an image in QREADS. If a re-interpretation or overread is required please follow defined workflow. ?? Provider Not In System IMG NM PROCEDURES Performing Organization Address City/[facility] Co de Phone Number IIKS NA * (ABNORMAL) Basic Metabolic Panel (01/29/2021 [...] 01/29/2021 7:34 AM CDT DTL eGFR-Black/Afri can Grenadian >90 >=60 mL/min/BSA 01/29/2021 7:34 AM CDT DTL Comment: ----ADDITIONAL INFORMATION---- Estimated GFR calculated using the 2009 CKD_EPI creatinine equation. eGFR Non-Black/Afric an Grenadian >90 >=60 mL/min/BSA 01/29/2021 7:34 AM CDT [...] Turner M.D., M.S. LAB BLOOD ADD -ON [facility] [address] [place] [address], [facility] DTL [facility] [address] [place] [address] from Last 3 Months or Most Recently Relevant to Health Maintenance Advance Directives For more information, please contact: [phone] * Full Code (Latest Code Status on [...] Answer Comments Full Code: Discussed Care Teams Membership Assistant Relationship Specialty Start Date End Date Elsewhere, Pcp PCP - General Family Medicine 01/20/21
--- OUTSIDE RECORDS SUMMARY | 2023-09-04 07:29 | XMS_ITS ---
Author Name Unknown Organization [facility] Address [address] [place] [address] Care Team Providers Care Manager Clinical Services Name Role Phone Unavailable Unavailable Unavailable Surgery Details Not on file Complications Check Surgery Details section. Procedure Estimated Blood Loss Check Surgery Details section. Procedure Findings Check Surgery Details section. Procedure Specimens Taken Check Surgery Details section.
--- OUTSIDE RECORDS SUMMARY | 2023-09-04 07:29 | XMS_ITS | Encounter Summary ---
Author Name Unknown Organization 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 [address] [place] [address] T Radiation Oncology at [place] [address] [place] [phone] Referral ID Status Reason Start Date Expiration Date Visits Re quested Visits Authorized [id number] Closed 07/08/2023 06/26/2024 5 5 Encounter Details Date Type Department Care Team (Latest Contact Info) Description 07/17/2023 1:46 PM CDT - 07/17/2023 11:59 PM CDT Hospital Encounter Department of Radiation Oncology in [place], [place] [address] [place] [phone] Sophia Kemp M.D. [address] [place] [phone] Discharge Disposition: Home or Self Care Social [...] often do you attend chur ch or sabianism services? Patient declined 05/20/2020 Do you belong to any clubs o r organizations such as taoism groups, unions, fraternal or athletic groups, or [...] more drinks on one occasion? Never 05/20/2020 [facility] of Occupat ional Health - Occupational [...] Sex Assigned at Female 06/28/2023 7:51 PM TRADEMARK ATTORNEY Gender Identity Female 06/28/2023 7:52 PM TRADEMARK ATTORNEY Sexual Orientation Straight 06/28/2023 7: 52 PM TRADEMARK ATTORNEY documented as of this encounter Medications at [...] taking ibuprofen for surgical pain 01/22/2021 omega 2-wuz-xdi-fish oil 1,000 mg (120 mg-180 mg) capsule [...] on filedocumented in this encounter Care Teams Middle School Reading Teacher Relationship Specialty Start Date End Date Elsewhere, Pcp PCP - General Family Medicine 01/20/21 documented as of this encounter
--- OUTSIDE RECORDS SUMMARY | 2023-09-04 07:29 | XMS_ITS | Encounter Summary ---
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 [address] [place] [address] T Radiation Oncology at [place] [address] [place] [phone] Referral ID Status Reason Start Date Expiration Date Visits Re quested Visits Authorized [id number] Closed 07/08/2023 06/26/2024 5 5 Encounter Details Date Type Department Care Team (Latest Contact Info) Description 07/15/2023 1:42 PM CDT - 07/15/2023 11:59 PM CDT Hospital Encounter Department of Radiation Oncology in [place], [place] [address] [place] [phone] Sophia Kemp M.D. [address] [place] [phone] Discharge Disposition: Home or Self Care Social [...] often do you attend chur ch or roman catholic services? Patient declined 05/20/2020 Do you belong to any clubs o r organizations such as sabianism groups, unions, fraternal or athletic groups, or [...] more drinks on one occasion? Never 05/20/2020 [facility] of Occupat ional Health - Occupational Stress [...] Sex Assigned at Female 06/28/2023 7:51 PM SLEEPING CAR PORTER Gender Identity Female 06/28/2023 7:52 PM SLEEPING CAR PORTER Sexual Orientation Straight 06/28/2023 7: 52 PM SLEEPING CAR PORTER documented as of this encounter Medications at [...] taking ibuprofen for surgical pain 01/22/2021 omega 6-nzl-yoz-fish oil 1,000 mg (120 mg-180 mg) capsule [...] on filedocumented in this encounter Care Teams Produce Department Supervisor Relationship Specialty Start Date End Date Elsewhere, Pcp PCP - General Family Medicine 01/20/21 documented as of this encounter
--- OUTSIDE RECORDS SUMMARY | 2023-09-04 07:29 | XMS_ITS | Encounter Summary ---
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 [address] [place] [address] T Radiation Oncology at [place] [address] [place] [phone] Referral ID Status Reason Start Date Expiration Date Visits Re quested Visits Authorized [id number] Closed 07/08/2023 06/26/2024 5 5 Encounter Details Date Type Department Care Team (Latest Contact Info) Description 07/09/2023 1:40 PM CDT - 07/09/2023 11:59 PM CDT Hospital Encounter Department of Radiation Oncology in [place], [place] [address] [place] [phone] Sophia Kemp M.D. [address] [place] [phone] Discharge Disposition: Home or Self Care Social [...] often do you attend chur ch or congregational services? Patient declined 05/20/2020 Do you belong to any clubs o r organizations such as religious groups, unions, fraternal or athletic groups, or [...] more drinks on one occasion? Never 05/20/2020 [facility] of Occupat ional Health - Occupational Stress [...] Sex Assigned at Female 06/28/2023 7:51 PM INSULATION FOREMAN Gender Identity Female 06/28/2023 7:52 PM INSULATION FOREMAN Sexual Orientation Straight 06/28/2023 7: 52 PM INSULATION FOREMAN documented as of this encounter Medications at [...] taking ibuprofen for surgical pain 01/22/2021 omega 0-rli-dai-fish oil 1,000 mg (120 mg-180 mg) capsule [...] on filedocumented in this encounter Care Teams Odd Piece Checker Relationship Specialty Start Date End Date Elsewhere, Pcp PCP - General Family Medicine 01/20/21 documented as of this encounter
--- OUTSIDE RECORDS SUMMARY | 2023-09-04 07:29 | XMS_ITS | Encounter Summary ---
Author Name Unknown Organization [facility] Address [address] [place] [address] Care Team Providers Care Director Of Revenue Name Role Phone Elsewhere, Pcp Primary Care Provider Unavailabl e Encounter Details Date Type Department Care Team (Late st Contact Info) Description 07/24/2023 Clinical Communication Department of Radiation Oncology in [place], [place] [address] [place] [address] Sophia Kemp M.D. [address] [place] [address] Social History Tobacco Use Types Packs/Day Years [...] often do you attend chur ch or yazidism services? Patient declined 05/20/2020 Do you belong to any clubs o r organizations such as alevism groups, unions, fraternal or athletic groups, or [...] more drinks on one occasion? Never 05/20/2020 [facility] of Occupat ional [facility] - Occupational Stress Questionnaire Answer Date Recorded [...] Sex Assigned at Female 06/28/2023 7:51 PM FABRICATION INSPECTOR Gender Identity Female 06/28/2023 7:52 PM FABRICATION INSPECTOR Sexual Orientation Straight 06/28/2023 7: 52 PM FABRICATION INSPECTOR documented as of this encounter Miscellaneous Notes * Telephone Encounter - Hyacinth Garrett - 07/24/2023 2:08 PM CDT Other Reason for Call Caller: Family Fare Relationships to patient: Rn Oncology Reason for call: Pharmacy called and they are unable to fill the prescription for this patients mouthwash as they are not a compounding pharmacy. documented in this encounter Plan of Treatment Not on file documented as of this encounter Visit Diagnoses Not on filedocumented in this encounter Care Teams Director Of Revenue Relationship Specialty Start Date End Date Elsewhere, Pcp PCP - General Family Medicine 01/20/21 documented as of this encounter
--- OUTSIDE RECORDS SUMMARY | 2023-09-04 07:29 | XMS_ITS | Encounter Summary ---
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 [address] [place] [address] T Radiation Oncology at [place] [address] [place] [phone] Referral ID Status Reason Start Date Expiration Date Visits Re quested Visits Authorized [id number] Closed 07/08/2023 06/26/2024 5 5 Encounter Details Date Type Department Care Team (Latest Contact Info) Description 07/19/2023 1:14 PM CDT - 07/19/2023 11:59 PM CDT Hospital Encounter Department of Radiation Oncology in [place], [place] [address] [place] [phone] Sophia Kemp M.D. [address] [place] [phone] Discharge Disposition: Home or Self Care Social [...] often do you attend chur ch or taoist services? Patient declined 05/20/2020 Do you belong to any clubs o r organizations such as jainism groups, unions, fraternal or athletic groups, or [...] more drinks on one occasion? Never 05/20/2020 [facility] of Occupat ional Health - Occupational [...] Sex Assigned at Female 06/28/2023 7:51 PM STRADDLE BUG Gender Identity Female 06/28/2023 7:52 PM STRADDLE BUG Sexual Orientation Straight 06/28/2023 7: 52 PM STRADDLE BUG documented as of this encounter Medications at [...] taking ibuprofen for surgical pain 01/22/2021 omega 2-kqu-tox-fish oil 1,000 mg (120 mg-180 mg) capsule [...] on filedocumented in this encounter Care Teams Group Work Program Aide Relationship Specialty Start Date End Date Elsewhere, Pcp PCP - General Family Medicine 01/20/21 documented as of this encounter
--- OUTSIDE RECORDS SUMMARY | 2023-09-04 07:29 | XMS_ITS | Encounter Summary ---
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 [address] [place] [address] 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 [address] [place] [address] [facility] Region Referral ID Status Reason Start Date Expiration Date V isits Requested Visits Authorized [id number] Authorized 06/27/2023 06/26/2024 10 10 Encounter Details Date Type Department Care Team (Latest Contact Info) Description 07/15/2023 1:42 PM CDT - 07/15/2023 5:08 PM CDT Hospital Encounter Department of Radiation Oncology in [address] [place] [address] Sophia Kemp M.D. 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 Patient declined 05/20/2020 Do you belong to any clubs o r organizations such as rastafari groups, unions, fraternal or athletic groups, or [...] more drinks on one occasion? Never 05/20/2020 [facility] - Occupational [...] Sex Assigned at Female 06/28/2023 7:51 PM PHOTOENGRAVING SKETCH MAKER Gender Identity Female 06/28/2023 7:52 PM PHOTOENGRAVING SKETCH MAKER Sexual Orientation Straight 06/28/2023 7: 52 PM PHOTOENGRAVING SKETCH MAKER documented as of this encounter Last Filed Vital Signs Vital Sign Reading Time Taken Comments Blood Pressure 163/115 07/15/2023 3:05 PM CDT Pulse 91 07/15/2023 3:05 PM CDT Temperature 36.2 ??C (97.1 ??F) 07/15/2023 3:05 PM CD T Respiratory Rate - - Oxygen Saturation - - Inhaled Oxygen Concentration - - Weight 98.8 kg (217 lb 13 oz) 07/15/2023 3:05 PM CDT Height - - Body Mass Index 42.76 03/01/2021 11:13 AM PHOTOENGRAVING SKETCH MAKER documented in this encounter Medications at Time [...] taking ibuprofen for surgical pain 01/22/2021 omega 6-lia-vwm-fish oil 1,000 mg (120 mg-180 mg) capsule [...] as of this encounter Progress Notes * Sophia Kemp M.D. - 07/15/2023 3:00 PM CDT ATTESTATION FOR MANAGEMENT VISIT I saw and evaluated the patient and participated in the garcia portions of the service as noted below.I reviewed the documentation of Ms. Mara Wylie RN and agree with the findings and plan. The patient appears well on exam. We will continue with radiation as planned and we anticipate that she willcomplete treatments this week. We anticipate that Susan Ramirez will complete radiation treatment as planned without interruptions. The course of treatment was tolerated well. The patient experienced toxicities of grade 1 nausea and vomiting during radiation treatment. This was controlled with anti-emetics. Follow-up will be with Agnes; I will see her again as needed. Sophia Kemp M.D., 07/15/2023 SUBJECTIVE REASON FOR VISIT Evaluation for side effects while receiving radiation treatment for 1. 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 HISTORY OF PRESENT ILLNESS Susan Ramirez is a 62 y.o. female with metastatic ovarian carcinoma that has had a partial response to chemotherapy with PET avidity noted in the thoracic inlet/supraclavicular lymph nodes and some residual disease in the retroperitoneal lymph nodes. Patient is now undergoing radiation therapy to the 4 tumors in left supraclavicle/thoracic inlet and the left supraclavicular fossa as well as to the retroperitoneal lymph nodes and retroperitoneum. Treatment Course: 2xMultiSiteSBRT Plan ID Fractions Dose / Fraction (cGy) Dose Treated (cGy) Dose Planned (cGy) First Treatment Last Treatment Elapsed Days [id number] 600 1800 3000 07/09/2023 07/15/2023 6 [id number] 600 1800 3000 07/09/2023 07/15/2023 6 Course Summary 07/09/2023 07/15/2023 6 The patient was seen and examined today with Dr. Kemp. The patient reports that she did vomit after first treatment of radiation. She is now taking Compazine 3 times a day and denies nausea or vomiting. Patient denies fevers, chills, sore throat, urinarychanges, diarrhea or esophagitis/dysphagia. PATIENT REPORTED SYMPTOM SCREEN FATIGUE (Scale: 0 = no fatigue; 10 = worst fatigue you can imagine): 5 PAIN (Scale: 0 = no pain; 10 = worst pain you can imagine): 3 OVERALL QUALITY OF LIFE (Scale: 0 = as bad as can be; 10 = as good as can be): 8 OBJECTIVE BP (!) 163/115 (BP Location: Right arm, Patient Position: Sitting, Cuff Size: Regular) Pulse 91 Temp 36.2 ??C (Temporal) Wt 98.8 kg BMI 42.76 kg/m?? PHYSICAL EXAM General: Alert and oriented in no apparent distress. ASSESSMENT / PLAN #1 Metastatic ovarian carcinoma, metastatic to chest and abdomen, s/p partial response to chemotherapy #2 History of a Stage IB (cT2, cN0, cM0, G2, ER+, SC+, HER2-) left breast cancer, s/p surgery #3 Hypofractionated radiotherapy to the left breast and cavity completed on June 07, 2020 #5 SBRT to the 4 tumors in left supraclavicle/thoracic inlet and the left supraclavicular fossa initiated on July 09, 2023; anticipated date of completion is on July 19, 2023 #6 SBRT to retroperitoneal lymph nodes and retroperitoneum initiated on July 09, 2023; anticipateddate of completion is on July 19, 2023 The patient is tolerating radiation treatment well overall. Patient is to take anti-emetic 45 minutes pre treatment then as needed if having nausea or vomiting. I reviewed education on potential lateterm side effect of radiation pneumonitis. Dr. Alarcon will see patient in follow up in July 2023. We will keep Radiation Oncology follow up to an as needed basis only. She will contact us with any questions or concerns. We will continue with radiation treatment as planned. Signed by: Mara Wylie R.N. 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
--- OUTSIDE RECORDS SUMMARY | 2023-09-04 07:29 | XMS_ITS | Encounter Summary ---
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 [address] [place] [address] [facility] Region Referral ID Status Reason Start Date Expiration Date Visits Re quested Visits Authorized [id number] Closed 06/27/2023 06/26/2024 1 1 Encounter Details Date Type Department Care Team (Latest Contact Info) Description 07/01/2023 2:24 PM CDT - 07/01/2023 5:05 PM CDT Hospital Encounter Department of Radiation Oncology in [place], [place] [address] [place] [phone] Sophia Kemp M.D. 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 Patient declined 05/20/2020 Do you belong to any clubs o r organizations such as catholic groups, unions, fraternal or athletic groups, or [...] more drinks on one occasion? Never 05/20/2020 [facility] - Occupational Stress [...] Sex Assigned at Female 06/28/2023 7:51 PM JUNIOR MANUFACTURING ENGINEER Gender Identity Female 06/28/2023 7:52 PM JUNIOR MANUFACTURING ENGINEER Sexual Orientation Straight 06/28/2023 7: 52 PM JUNIOR MANUFACTURING ENGINEER documented as of this encounter Medications at [...] taking ibuprofen for surgical pain 01/22/2021 omega 3-tvj-gxl-fish oil 1,000 mg (120 mg-180 mg) capsule [...] mouth. 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 Authorized by: Sophia Kemp M.D. Simulation was performed under physician supervision based on physician order in preparation for radiation therapy. Physician was immediately available to provide assistance and direction throughout the procedure. Written consent for treatment was completed or confirmed. The patient was appropriately identified and placed in the treatment position using the necessary immobilization to ensure a reproducible treatment position. Reference peres were placed to facilitate marking of isocenter. Area scanned:Chest and Pelvis Contrast used for the simulation procedure: IV Patient position: Head first supine and arms crossed on chest Custom immobilization: Vac-vilma and 5 point mask Motion management: None Bolus: No CT guidance: Following positioning of the patient, a series of slices was obtained to be utilized in treatment planning. CT images were transferred to the [employer] treatment planning system, after a reference isocenter was determined and marked. Segmentation and treatment planning will take place prior to treatment delivery. Patient set up and imaging was appropriate and completed without incident. Early Childhood Coordinator use:No Associated attestation - Sophia Kemp M.D. - 07/01/2023 5:05 PM CDT I was present during all critical and garcia portions of the procedure(s) and immediately available [facility] the entire duration. See note for details. 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
--- OUTSIDE RECORDS SUMMARY | 2023-09-04 07:30 | XMS_ITS | Clinical Summary ---
Author Name Unknown Organization [employer] [facility] [email or web address] Address [place], [place] [address] Care Team Providers Care Professional Organizer Name Role Phone Sara Greer MD Primary Care Prov ider Deon Mackay MD Unavailable [phone] Allergies Active Allergy Reactions Criticality Noted Date Comments Dust Mites Runny Nose 09/23/2012 found at allergy test Sulfa (Sulfonamide Antibiotics) Nausea And Vomiting Low 12/17/2006 nausea Medications Medication Sig Dispensed Refills Start Date End Date Status ONE-A-DAY WOMENS FORMULA 27 MG-0.4 MG TAB take 1 tablet by oral route once daily with food 0 10/07/2007 Active Optsl-4-WKP-EPA-Fish Oil 1,000 mg (120 mg-180 mg) cap Take 2 capsules by mouth once daily. 0 01/05/2019 Active anastrozole (ARIMIDEX) 1 mg tablet 12/15/2020 Active calcium carbonate-vitamin D3 1,000 mg(2,500 mg)-800 unit tab Take by mouth once daily. 0 01/09/2021 Active magnesium oxide (MAG-OX 400) 400 mg tablet Take 1 Tablet (400 mg) by mouth once daily. 0 01/09/2021 Active acetaminophen (TYLENOL EXTRA STRGTH) 500 mg tablet Take 1,000 mg by mouth every 6 hours if needed. 01/22/2021 Active ondansetron (ZOFRAN) 4 mg tablet 08/30/2022 Active prochlorperazine (COMPAZINE) 5 mg tablet 08/30/2022 Active LORazepam (ATIVAN) 0.5 mg tab Take 0.5 mg by mouth every 4 hours if needed for Nausea/Vomiting . 09/12/2022 Active naproxen-diphenhydrami ne 220-25 mg tab Take 1 Tablet by mouth at bedtime if needed. 10/16/2021 Active prochlorperazine (COMPAZINE) 5 mg tablet Take 5 mg by mouth every 4 hours if needed for Nausea/Vomiting . 08/30/2022 Active vitamin B complex (B-COMPLEX VITAMIN) tablet Take 1 Tablet by mouth. 10/01/2022 Active levothyroxine (SYNTHROID) 125 mcg tabletIndications:Acqu ired hypothyroidism Take 1 Tablet (125 mcg) by mouth once daily. 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 Eosinophilic esophagitis 01/12/2019 Overview: EGD 12/2018 EoE, try omeprazole 40 mg Last Assessment & Plan: Life long [employer] INH[employer]OR treatment History of tympanostomy 04/08/2013 Overview: Left myringotomy tube, per ENT patient is to keep ear dry and lavage should not be attempted Diverticulitis of sigmoid colon 01/20/2011 Screen for colon cancer 01/19/2011 Overview: Colonoscopy 12/2010 normal repeat in 10 years Unspecified hypothyroidism 12/17/2006 Adjustment disorder with mixed anxiety and depre ssed mood 12/17/2006 Esophageal reflux 12/17/2006 Allergic rhinitis, cause unspecified 12/17/2006 Resolved Problems Problem Noted Date Diagnosed Date Resolved Date Dyspepsia and other specifie d disorders of function of stomach 12/17/2006 11/13/2021 Pelvic congestion syndrome 12/17/2006 0 11/13/2021 Encounters Date Type Department Care Team Description 06/20/2023 Orders Only [facility] Scanner 1 scan: (1-Ord) [facility], PET/CT SCAN MID-ORBITS TO PROXIMAL THIGHS, 06/20/2023 from Last 3 Months Immunizations Name Administration Dates Next Due COVID-19 vaccine (Moderna 100mcg/0.5mL) PF, MDFariha 03/31/2021 Influenza, IIV3 (Age >=3 years) 01/20/2010 Influenza, IIV4 02/13/2022,,01/26/2020,2018,01/24/2017 Influenza, IIV4 (=>6mos) MDV 01/13/2020,01/17/20 18 Td (Age >=7 Years) 09/14/2004 Td, Preservative Free (age > = 7 Years) 09/14/2004 Tdap 11/26/2013 Family History Medical History Relation Name Comments Cancer Brother 1 Montrell melanoma Graves' disease Brother 2 Carlos Alberto Cancer-prostate Brother 3 Anthony Other Father Fall Heart Disease Maternal Grandmother Other Mother Tractor acciden t Arthritis Sister 1 Marylu Osteoporosis Sister 1 Marylu age 57 Thyroid Disease Sister 1 Marylu Arthritis Sister 2 Nai Lymphoma Sister 2 Nai Osteoporosis Sister 2 Nai age 59 Thyroid Disease Sister 2 Nai Cancer-breast No Family History Relation Name Status Comments Brother 1 Montrell (Age 39) Brother 2 Carlos Alberto Brother 3 Anthony Father Maternal Grandmother Mother Sister 1 Marylu Sister 2 Nai Social History Tobacco Use Types Packs/Day Years Used Date Smoking Tobacco: Never Passive Smoke Exposure: Never Smokeless Tobacco: Never Tobacco Cessation:Counseling Given: Not Answered Alcohol Use Standard Drinks/Week Comments Yes 0 (1 standard drink = 0.6 oz pur e alcohol) rare PHQ-2 Answer Date Recorded PHQ-2 TOTAL SCORE 0 01/07/2023 Social Connections Answer Date Recorded Frequency of Communication with Friends and Fami ly 0 12/12/2022 Financial Resource Strain Answer Date R ecorded Difficulty of Paying Living Expenses 3 12/12/2022 Difficulty of Paying Living Expenses Not on file 12/12/2022 Food Insecurity Answer Date Recorded Worried About Running Out of Food in the Last Ye ar 1 12/12/2022 Transportation Needs Answer Date Record ed Lack of Transportation (Medical) 1 12/12/2022 Housing Stability Answer Date Recorded Unable to Pay for Housing in the Last Year 1 12/12/2022 Sex and Gender Information Value Date Recorded Sex Assigned at Not on file Gender Identity Not on file Sexual Orientation Not on file Obstetrics History Para Term AB IAB SAB Ectopic Multiple Livin g Live Births 0 0 Last Filed Vital Signs Vital Sign Reading Time Taken Comments Blood Pressure 139/90 12/12/2022 1:41 PM CDT Pulse 120 12/12/2022 1:41 PM CDT Temperature 36.8 ??C (98.2 ??F) 11/09/2022 1 0:39 AM CDT Respiratory Rate 18 11/09/2022 10:3 9 AM CDT Oxygen Saturation 98% 12/12/2022 1:41 PM CDT Inhaled Oxygen Concentration - - Weight 101.4 kg (223 lb 9.6 oz) 12/12/2022 1:41 PM CDT Height 152.4 cm (5') 11/09/2022 10:39 AM CDT Body Mass Index 43.67 11/09/2022 10:39 AM CDT Plan of Treatment Health Maintenance Due Date Last Done Comments Pneumococcal series for age 6-64 (1 of 2 - PCV) 11/04/1965 HIV for age 15-65 11/04/1974 Zoster (shingles) series for age 50+ (1 of 2) 11/04/1978 Colonoscopy through age 75 01/19/2021 01/19/2011, COVID-19 vaccine series (2022- season) 2022 03/08/2022, 03/31/2021, 07/28/2020, Additional history exists BMI (ht and wt on same day) for age 18+ 11/10/2023 11/09/2022, 11/13/2021, 02/16/2021, Additional history exists Tetanus booster 11/27/2023 11/26/2013, 08/21, 09/14/2004 Influenza for age 50-64 12/22/2023 02/14/20 22, 01/12/2021, 01/26/2020, Additional history exists Depression screening for age 12+ 01/08/2024 01/07/2023, 01/06/2023, 11/13/2021, Additional history exists Mammogram for age 45-75 05/23/2024 05/23/19 24, 05/04/2022, 03/29/2021, Additional history exists Lipids for age 45-75 02/18/2025 02/19/2020, 01/05/2019, 03/12/2018, Additional history exists Pap test for age 21-65 02/28/2025 , 02/29/2020, 01/24/2017, Additional history exists Tdap Completed 11/26/2013 Hepatitis C screening for ag e 18-79 Completed 04/11/2020 Procedures Procedure Name Priority Date/Time Associated Diagnosis Comments SCAN-RADIOLOGY REPORT 06/20/2023 12:00 AM HANDBELL CHOIR DIRECTOR XR MAMMO JACLYN BILAT SCREEN Routine 05/23/2023 10:48 AM HANDBELL CHOIR DIRECTOR Breast cancer screening ANTI HCV Routine 04/11/2020 10:25 AM HANDBELL CHOIR DIRECTOR Need for hepatitis C screening test PLANT QUALITY MANAGER THIN PREP PAP SCREEN IMAGED Routine 02/29/2020 2:40 PM HANDBELL CHOIR DIRECTOR Pap smear for cervical cancer screening LIPID PANEL W REFLEX MEASURED LDL Routine 02/19/2020 1:58 PM CDT Screening for lipoid disorders from Last 3 Months or Most Recently Relevant to Health Maintenance Results * SCAN-RADIOLOGY REPORT (06/20/2023 12:00 AM HANDBELL CHOIR DIRECTOR) Anatomical Region Laterality Modality Other Scanner OTHER * XR MAMMO JACLYN BILAT SCREEN (05/23/2023 10:48 AM HANDBELL CHOIR DIRECTOR) Anatomical Region Laterality Modality BREASTS, Breast Left, Breast Right Bilateral Mammography Impressions 05/23/2023 3:58 PM HANDBELL CHOIR DIRECTOR ??There is no radiographic evidence for malignancy. ??Recommend annual mammograms. MAMMOGRAM ASSESSMENT: ??ACR 1 Negative PATIENTS: You will also receive a letter with your examination results in an easy to read format. ??If you have questions about your results, please contact your referring provider. Narrative 05/23/2023 3:58 PM HANDBELL CHOIR DIRECTOR For Patients: As a result of the 21st Century Cures Act, medical imaging exams and procedure reports are released immediately into your electronic medical record. You may view this report before your referring provider. If you have questions, please contact your health care provider. XR MAMMO JACLYN BILAT SCREEN [[id number]] CLINICAL HISTORY: ??This is an asymptomatic 62 y.o. patient. INDICATION FOR EXAM: Mammogram Screening. TECHNIQUE: CC & MLO views were obtained. ??This study was evaluated with the assistance of Computer-Aided Detection. Breast Tomosynthesis was used in interpretation. COMPARISON FILM: Yes 05/04/22 [facility] 03/29/21 [facility] FINDINGS: ??The breasts are heterogeneously dense, which may obscure small masses. There are no dominant masses, suspicious micro calcifications or areas of architectural distortion. Sara Greer MD MAMMO * ANTI HCV (04/11/2020 10:25 AM HANDBELL CHOIR DIRECTOR) Pathologist [facility] HEPATITIS C ANTIBODY Non-React christopher Non-React christopher 04/11/2020 6:09 PM HANDBELL CHOIR DIRECTOR [facility] Comment:Antibodies to HCV no t detected; does not exclude the possibility of exposure to HCV. Blood BLOOD SPECIMEN / Unknown Butterfly / Unknown 04/11/2020 10:25 AM HANDBELL CHOIR DIRECTOR 04/11/2020 10:28 AM HANDBELL CHOIR DIRECTOR Sara Greer MD SEND OUTS [facility] [address] [place] [address], * PLANT QUALITY MANAGER THIN PREP PAP SCREEN IMAGED (02/29/2020 2:40 PM HANDBELL CHOIR DIRECTOR) Pathologist [facility] Case Report Gynecologic Cytology Report ? Case: [id number] ? Authorizing Provider: ??Sara Greer ? Collected: ? 02/29/2020 1440 ? MD Afia ? Ordering Location: ? [facility] ?? Received: ?02/29/2020 1526 ? Clinic ? First Screen: ?Renetta Pineda ? Specimen: ?PLANT QUALITY MANAGER ThinPrep Vial Screening, Cervical ? 03/08/2020 12:46 PM HANDBELL CHOIR DIRECTOR [facility] INTERPRETATION/ RESULT NEGATIVE FOR INTRAEPITHELIAL LESION OR MALIGNANCY (NIL) (none) 03/08/2020 12:46 PM HANDBELL CHOIR DIRECTOR [facility] IMEN ADEQUACY Satisfactory for evaluation No endocervical component seen 03/08/2020 12:46 PM HANDBELL CHOIR DIRECTOR [facility] HPV REQUEST HPV and PAP 03/08/2020 12:46 PM HANDBELL CHOIR DIRECTOR [facility] Date of LMP N/A 03/08/2020 12:46 PM HANDBELL CHOIR DIRECTOR [facility] Last Pap Date 01/24/17 03/08/2020 12:46 PM HANDBELL CHOIR DIRECTOR [facility] Last Pap Result NIL 0 12:46 PM HANDBELL CHOIR DIRECTOR [facility] Abnormal Pap or Troy Bx in last 5 years No 03/08/2020 12:46 PM HANDBELL CHOIR DIRECTOR [facility] Menstrual Status Postmenopausal 03/08/2020 12:46 PM HANDBELL CHOIR DIRECTOR [facility] Troy Bx Done Today No 03/08/2020 12:46 PM HANDBELL CHOIR DIRECTOR [facility] Additional Information None given 03/08/2020 12:46 PM HANDBELL CHOIR DIRECTOR [facility] Comment: Cytology is screened at [facility] - [address], [place] [address] and [facility] - [address], [place] [address] and [facility] - [address] [place] [address] Interpreted at [facility] - [address], [place] [address] Automated Review Successful 03/08/2020 12:46 PM HANDBELL CHOIR DIRECTOR [facility] Comment:Specimen processed s uccessfully by automated engineering group manager device, ThinPrep Imaging System, [employer] ANCILLARY TESTING PLANT QUALITY MANAGER HPV Ordered, Please see separate report 03/08/2020 12:46 PM HANDBELL CHOIR DIRECTOR [facility] Note The pap test is a screening technique, not a diagnostic procedure. It is used primarily to screen for squamous cancers and precursor lesions. Published studies have shown that it is subject to both false negative and false positive results. The pap test should not be used as the sole means to diagnose or exclude pre-malignant and malignant lesions. 03/08/2020 12:46 PM HANDBELL CHOIR DIRECTOR [facility] Other (Cervical) Non-Blood / Unknown 02/29/2020 2:40 PM HANDBELL CHOIR DIRECTOR 02/29/2020 3:26 PM HANDBELL CHOIR DIRECTOR Sara Greer MD PATHOLOGY/ CYTOLOGY [facility] [address] [place] [address], [place] * (ABNORMAL) LIPID PANEL W REFLEX MEASURED LDL (02/19/2020 1:58 PM CDT) CHOLESTEROL,TOTAL 223(H) 100 - 199 mg/dL 02/19/2020 9:33 PM CDT [facility] TRIGLYCERIDES 128 <150 mg/dL 02/19/2020 9:33 PM CDT [facility] HDL CHOLESTEROL 65 >40 mg/dL 0 9:33 PM CDT [facility] NON-HDL CHOLESTEROL 158(H) <145 mg/dl 02/19/2020 9:33 PM CDT [facility] CHOL/HDL RATIO 3.43 <4.50 02/19/2020 9:33 PM CDT [facility] LDL CHOLESTEROL 132(H) <=130 mg/dL 02/19/2020 9:33 PM CDT [facility] PROVIDER ORDERED STATUS RANDOM 02/19/2020 9:33 PM CDT [facility] Blood BLOOD SPECIMEN / Unknown Butterfly / Unknown 02/19/2020 1:58 PM CDT 02/19/2020 1:58 PM CDT Sara Greer MD CHEMISTRY [facility] [address] [place] [address], [place] from Last 3 Months or Most Recently Relevant to Health Maintenance Care Teams Professional Organizer Relationship Specialty Start Date End Date Sara Greer MD [address] [place] [address] PCP - General 08/11/05 Deon Mackay MD [address] [place] [address] Orthopedics Surgery - Orthopedics 09/19/17
== END 2023-09-02 13:00 | disposition home or self-care (01) ==
LOC: NFLDREF 09-04 07:26
PROVIDERS: PCP Family Medicine; Referring Provider Family Medicine; Visit Provider Registered Nurse
DX: N30.01 Acute cystitis with hematuria (principal); B96.20 Unspecified Escherichia coli [E. coli] as the cause of diseases classified elsewhere
CPT/HCPCS: 87086; 87186

== ENCOUNTER 2023-09-05 08:59 | Outpatient (CLI) | payer OTHER, SELFPAY ==
--- OUTSIDE RECORDS SUMMARY | 2023-09-05 09:01 | XMS_ITS ---
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
--- OUTSIDE RECORDS SUMMARY | 2023-09-05 09:01 | XMS_ITS | Referral Summary ---
Author Name Unknown Organization [facility] Address [address] [place] [address] Care Team Providers Care Line Builder Name Role Phone Elsewhere, Pcp Primary Care Provider Unavailabl e Source Comments Patient records contain information from all sites at [facility]. For routine questions regarding patient records, call [phone] during business hours, M-F 8:00 AM - 5:00 PM Central Time. Record requests for emergency care only can be directed to [phone] at any time.[facility] Encounters Date Type Department Care Team Description 07/24/2023 Clinical Communication Department of Radiation Oncology in [address] [address] Sophia Kemp M.D. 07/24/2023 Clinical Communication Department of Radiation Oncology in [address] [address] Sophia Kemp M.D. 07/19/2023 Documentation Department of Radiation Oncology in [address] [address] Sophia Kemp M.D. 07/19/2023 1:14 PM CDT - 07/19/2023 11:59 PM CDT Hospital Encounter Department of Radiation Oncology in [address] [address] Sophia Kemp M.D. Discharge Disposition: Home or Self Care 07/17/2023 1:46 PM CDT - 07/17/2023 11:59 PM CDT Hospital Encounter Department of Radiation Oncology in [address] [address] Sophia Kemp M.D. Discharge Disposition: Home or Self Care 07/15/2023 1:42 PM CDT - 07/15/2023 5:08 PM CDT Hospital Encounter Department of Radiation Oncology in [address] [address] Sophia Kemp M.D. Malignant Neoplasm Of Fallopian Tube Right (HCC) 07/15/2023 1:42 PM CDT - 07/15/2023 11:59 PM CDT Hospital Encounter Department of Radiation Oncology in [address] [address] Sophia Kemp M.D. Discharge Disposition: Home or Self Care 07/11/2023 2:07 PM CDT - 07/11/2023 11:59 PM CDT Hospital Encounter Department of Radiation Oncology in [address] [address] Sophia Kemp M.D. Discharge Disposition: Home or Self Care 07/09/2023 1:40 PM CDT - 07/09/2023 11:59 PM CDT Hospital Encounter Department of Radiation Oncology in [address] [address] Sophia Kemp M.D. Discharge Disposition: Home or Self Care 07/01/2023 1:39 PM CDT - 07/01/2023 2:23 PM CDT Hospital Encounter Department of Radiation Oncology in [address] [address] Sophia Kemp M.D. Grieman, Kari A, RCarmelinaNCarmelina Malignant Neoplasm Of Fallopian Tube Right (HCC) (Primary Dx) 07/01/2023 2:24 PM CDT - 07/01/2023 5:05 PM CDT Hospital Encounter Department of Radiation Oncology in [address] [address] Sophia Kemp M.D. Malignant Neoplasm Of Fallopian Tube Right (HCC) 07/01/2023 12:43 PM CDT - 07/01/2023 1:38 PM CDT Hospital Encounter Department of Radiation Oncology in [address] [address] Sophia Kemp M.D. Malignant Neoplasm Of Fallopian Tube Right (HCC) (Primary Dx) 06/27/2023 Orders Only Department of Radiation Oncology in [address] [address] Janette Haley P.A.-C., M.S. Malignant Neoplasm Of [...] every morning before breakfast. 02/29/2020 Active omega 5-lwj-veo-fish oil 1,000 mg (120 mg-180 mg) capsule [...] Overview: Added automatically from request for surgery [id number] Malignant Neoplasm Of Breast Upper Inner Quadrant [...] How often do you attend chur or anglican services? Patient declined 05/20/2020 Do you belong to any clubs o r organizations such as restorationism groups, unions, fraternal or athletic groups, or [...] more drinks on one occasion? Never 05/20/2020 [facility] of Occupat ional Health - Occupational Stress [...] Sex Assigned at Female 06/28/2023 7:[address] MAGISTRATE Gender Identity Female 06/28/2023 7:[address] MAGISTRATE Sexual Orientation Straight 06/28/2023 7: [address] MAGISTRATE Last Filed Vital Signs Vital Sign Reading [...] Body Mass Index 42.76 03/01/2021 11:[address] MAGISTRATE Plan of Treatment Not on file Medical Devices Implanted Type Area Equipment Maintenance Technician Device Identifier Shelf Expiration Date Model / [...] OUTSIDE NM PET Routine 06/20/2023 2:[address] MAGISTRATE BI BREAST SCREENING BILATERAL WITH TOMOSYNTHESIS RAD - Routine (most inpatients and all outpatients) 05/23/2023 10:[address] MAGISTRATE EXTI THYROID-STIMULATING HORMONE-SENSITIVE (S-TSH), S Routine 08/23/2021 1:55 PM CDT BASIC METABOLIC PANEL, S/P STAT 01/29/2021 6:42 AM CDT EXTI LIPID PANEL W REFLEX MEASURED LDL Routine 02/19/2020 1:58 PM CDT from Last 3 Months or Most Recently Relevant to Health Maintenance Results * Aria Course Complete Treatment Information (07/19/2023 2:20 PM CDT) [facility] Course ID [id number] eSBRT [place] ARIA Course Start Date 06/28/2023 16:34 CDT [place] Course End Date 07/26/2023 13:47 CDT [place] First Treatment Date 07/09/2023 14:26 CDT [place]A Last Treatment Date 07/19/2023 14:20 CDT [place] ARIA Treatment Elapsed Days 10 [place] [facility] Reference Point [id number] retrox [place]ZA ARIA Dosage Given to Date cGy 3000 [place] ARIA Reference Point [id number] lavX [place] ARIA Dosage Given to Date cGy 3000 [place] ARIA Plan ID [id number] [place]ZA ARIA Fractions Treated to Date 5 ESPINOZA ARIA Planned Total Fractions 5 [place]ZA ARIA Prescribed Dose Per Fraction 600 [place]ZA ARIA Prescription Dose in cGy 3000 [place] ARIA Plan Primary Reference Point [id number] retrox [place]ZA ARIA Plan ID [id number] [place] ARIA Fractions Treated to Date 5 [place] ARIA Planned Total Fractions 5 [place] ARIA Prescribed Dose Per Fraction 600 [place] ARIA Prescription Dose in cGy 3000 [place] ARIA Plan Primary Reference Point [id number] lavX [place] ARIA 07/19/2023 2:20 PM CDT [...] Elapsed Days 10 [place] [facility]A Reference Point [id number] retrox [place] ARIA Dosage Given to Date cGy 3000 [place] ARIA Session Dosage Given 600 [place] ARIA Reference Point [id number] lavX ESP[place] ARIA Dosage Given to Date cGy 3000 [place] ARIA Session Dosage Given 600 [place] ARIA Plan ID [id number] [place] ARIA Fractions Treated to Date 5 [place] ARIA Planned Total Fractions 5 [place] ARIA Prescribed Dose Per Fraction 600 [place] ARIA Prescription Dose in cGy 3000 [place] ARIA Plan Primary Reference Point [id number] retrox [place] ARIA Plan ID [id number] [place] ARIA Fractions Treated to Date 5 [place] ARIA Planned Total Fractions 5 [place] ARIA Prescribed Dose Per Fraction 600 [place] ARIA Prescription Dose in cGy 3000 [place] ARIA Plan Primary Reference Point [id number] lavX [place] ARIA 07/19/2023 2:20 PM CDT Provider Not In System RADIATION ONCOLOG Y ORDERABLES Performing Organization Address City/[facility] Co de Phone Number OLGA AGUIRRE na * Initial Rad Onc Treatment Planning CT Simulation (07/01/2023 2:30 PM CDT) Narrative ESPINOZA BOOGIEA - 07/01/2023 2:30 PM CDT Genia Moore ? 07/01/2023 ??3:18 PM Initial Rad Onc Treatment Planning CT Simulation Performed by: Sophia Kemp M.D. Authorized by: Sophia Kemp M.D. ?? Sophia Kemp M.D. RADIATION ONCOLOG Y ORDERABLES Performing Organization Address [facility] Co de Phone Number OLGA AGUIRRE na * PET skull to mid thigh-Outside NM Pet (06/20/2023 2:[address] MAGISTRATE) 06/20/2023 2:[address] MAGISTRATE Narrative IIMS - 06/20/2023 4:[address] MAGISTRATE This order has been created and auto-finalized to support the import of outside images. If available, original interpretation can be found on the Media Tab in Chart Review, in Document Viewer, or as an image in QREADS. If a re-interpretation or overread is required please follow defined workflow. ?? Provider Not In System IMG NM PROCEDURES Performing Organization Address City/[facility] Co de Phone Number IIDC NA * (ABNORMAL) Basic Metabolic Panel (01/29/2021 [...] 01/29/2021 7:34 AM CDT DTL eGFR-Black/Afri can Swiss >90 >=60 mL/min/BSA 01/29/2021 7:34 AM CDT DTL Comment: ----ADDITIONAL INFORMATION---- Estimated GFR calculated using the 2009 CKD_EPI creatinine equation. eGFR Non-Black/Afric an Swiss >90 >=60 mL/min/BSA 01/29/2021 7:34 AM CDT [...] Turner M.D., M.S. LAB BLOOD ADD -ON [facility] [address] [place] [address], [facility] DTL [facility] [address] [place] [address] from Last 3 Months or Most Recently Relevant to Health Maintenance Advance Directives For more information, please contact: [phone] * Full Code (Latest Code Status on [...] Answer Comments Full Code: Discussed Care Teams Line Builder Relationship Specialty Start Date End Date Elsewhere, Pcp PCP - General Family Medicine 01/20/21
--- OUTSIDE RECORDS SUMMARY | 2023-09-05 09:01 | XMS_ITS | Clinical Summary ---
Author Name Unknown Organization [facility] Address [address] [place] [address] Care Team Providers Care Metal Numerical Control Programmer Name Role Phone Elsewhere, Pcp Primary Care Provider Unavailabl e Source Comments Patient records contain information from all sites at [facility]. For routine questions regarding patient records, call [phone] during business hours, M-F 8:00 AM - 5:00 PM Central Time. Record requests for emergency care only can be directed to [phone] at any time.[facility] Allergies Active Allergy Reactions Criticality Noted Date [...] every morning before breakfast. 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 07/24/2023 Clinical Communication Department of Radiation Oncology in [address] [address] Sophia Kemp M.D. 07/19/2023 1:14 PM CDT - 07/19/2023 11:59 PM CDT Hospital Encounter Department of Radiation Oncology in [address] [address] Sophia Kemp M.D. Discharge Disposition: Home or Self Care 07/19/2023 Documentation Department of Radiation Oncology in [address] [address] Sophia Kemp M.D. 07/17/2023 1:46 PM CDT - 07/17/2023 11:59 PM CDT Hospital Encounter Department of Radiation Oncology in [address] [address] Sophia Kemp M.D. Discharge Disposition: Home or Self Care 07/15/2023 1:42 PM CDT - 07/15/2023 5:08 PM CDT Hospital Encounter Department of Radiation Oncology in [address] [address] Sophia Kemp M.D. 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 Discharge Disposition: Home or Self Care 07/11/2023 2:07 PM CDT - 07/11/2023 11:59 PM CDT Hospital Encounter Department of Radiation Oncology in [address] [address] Sophia Kemp M.D. Discharge Disposition: Home or Self Care 07/09/2023 1:40 PM CDT - 07/09/2023 11:59 PM CDT Hospital Encounter Department of Radiation Oncology in [address] [address] Sophia Kemp M.D. Discharge Disposition: Home or Self Care 07/01/2023 2:24 PM CDT - 07/01/2023 5:05 PM CDT Hospital Encounter Department of Radiation Oncology in [address] [address] Sophia Kemp M.D. 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 Grieman, Kari A, RCarmelinaN. 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 Malignant Neoplasm Of [...] How often do you attend chur or hoahaoism services? Patient declined 05/20/2020 Do you belong to any clubs o r organizations such as zoroastrian groups, unions, fraternal or athletic groups, or [...] more drinks on one occasion? Never 05/20/2020 [facility] of Occupat ional Health - Occupational Stress [...] Sex Assigned at Female 06/28/2023 7:51 PM BACK OFFICE MEDICAL ASSISTANT Gender Identity Female 06/28/2023 7:52 PM BACK OFFICE MEDICAL ASSISTANT Sexual Orientation Straight 06/28/2023 7: 52 PM BACK OFFICE MEDICAL ASSISTANT Last Filed Vital Signs Vital Sign Reading [...] Body Mass Index 42.76 03/01/2021 11:13 AM BACK OFFICE MEDICAL ASSISTANT Plan of Treatment Health Maintenance Due Date [...] this topic Medical Devices Implanted Type Area Snowsport Instructor Device Identifier Shelf Expiration Date Model / [...] OUTSIDE NM PET Routine 06/20/2023 2:15 PM BACK OFFICE MEDICAL ASSISTANT BI BREAST SCREENING BILATERAL WITH TOMOSYNTHESIS RAD - Routine (most inpatients and all outpatients) 05/23/2023 10:48 AM BACK OFFICE MEDICAL ASSISTANT EXTI THYROID-STIMULATING HORMONE-SENSITIVE (S-TSH), S Routine 08/23/2021 [...] ARIA Course End Date 07/26/2023 13:47 CDT [place] ARIA First Treatment Date 07/09/2023 14:26 CDT ESPINOZA ARIA Last Treatment Date 07/19/2023 14:20 CDT [place] ARIA Treatment Elapsed Days 10 [facility] Reference Point [id number] retrox ESPINOZA ARIA Dosage Given to Date cGy 3000 ESPINOZA ARIA Reference Point [id number] lavX ESPINOZA ARIA Dosage Given to Date cGy 3000 ESPINOZA ARIA Plan ID [id number] ESPINOZA ARIA Fractions Treated to Date 5 ESPINOZA ARIA Planned Total Fractions 5 ESPINOZA ARIA Prescribed Dose Per Fraction 600 ESPINOZA ARIA Prescription Dose in cGy 3000 ESPINOZA ARIA Plan Primary Reference Point [id number] retrox ESPINOZA ARIA Plan ID [id number] ESPINOZA ARIA Fractions Treated to Date 5 [place] ARIA Planned Total Fractions 5 ESP[place] ARIA Prescribed Dose Per Fraction 600 ESPINOZA ARIA Prescription Dose in cGy 3000 [place]ZA ARIA Plan Primary Reference Point [id number] lavX ESPINOZA ARIA 07/19/2023 2:20 PM CDT [...] Elapsed Days 10 ESPINOZA ARIA Reference Point [id number] retrox ESPINOZA ARIA Dosage Given to Date cGy 3000 ESPINOZA ARIA Session Dosage Given 600 ESPINOZA ARIA Reference Point [id number] lavX ESPINOZA ARIA Dosage Given to Date cGy 3000 ESPINOZA ARIA Session Dosage Given 600 [place]ZA ARIA Plan ID [id number] ESPINOZA ARIA Fractions Treated to Date 5 ESPINOZA ARIA Planned Total Fractions 5 ESPINOZA ARIA Prescribed Dose Per Fraction 600 ESPINOZA ARIA Prescription Dose in cGy 3000 ESPINOZA ARIA Plan Primary Reference Point [id number] retrox ESPINOZA ARIA Plan ID [id number] ESP[place] ARIA Fractions Treated to Date 5 [place] ARIA Planned Total Fractions 5 [place]ZA ARIA Prescribed Dose Per Fraction 600 ESPINOZA ARIA Prescription Dose in cGy 3000 ESPINOZA ARIA Plan Primary Reference Point [id number] lavX ESPINOZA ARIA 07/19/2023 2:20 PM CDT Provider Not In System RADIATION ONCOLOG Y ORDERABLES Performing Organization Address [facility] Co de Phone Number OLGA AGUIRRE na * Initial Rad Onc Treatment Planning CT Simulation (07/01/2023 2:30 PM CDT) Narrative OLGA AGUIRRE - 07/01/2023 2:30 PM CDT Genia Moore ? 07/01/2023 ??3:18 PM Initial Rad Onc Treatment Planning CT Simulation Performed by: Sophia Kemp M.D. Authorized by: Sophia Kemp M.D. ?? Sophia Kemp M.D. RADIATION ONCOLOG Y ORDERABLES Performing Organization Address [facility] de Phone Number OLGA colindres * PET skull to mid thigh-Outside NM Pet (06/20/2023 2:15 PM BACK OFFICE MEDICAL ASSISTANT) 06/20/2023 2:14 PM BACK OFFICE MEDICAL ASSISTANT Narrative IIND - 06/20/2023 4:19 PM BACK OFFICE MEDICAL ASSISTANT This order has been created and auto-finalized to support the import of outside images. If available, original interpretation can be found on the Media Tab in Chart Review, in Document Viewer, or as an image in QREADS. If a re-interpretation or overread is required please follow defined workflow. ?? Provider Not In System IMG NM PROCEDURES Performing Organization Address [facility] de Phone Number CHUCK NA * (ABNORMAL) [...] 01/29/2021 7:34 AM CDT DTL eGFR-Black/Afri can Maldivian >90 >=60 mL/min/BSA 01/29/2021 7:34 AM CDT DTL Comment: ----ADDITIONAL INFORMATION---- Estimated GFR calculated using the 2009 CKD_EPI creatinine equation. eGFR Non-Black/Afric an Maldivian >90 >=60 mL/min/BSA 01/29/2021 7:34 AM CDT [...] Turner M.D., M.S. LAB BLOOD ADD -ON [facility] [address] [place] [address], [facility] [address] [place] [address] from Last 3 Months or Most Recently Relevant to Health Maintenance Advance Directives For more information, please contact: [phone] * Full Code (Latest Code Status on [...] Answer Comments Full Code: Discussed Care Teams Metal Numerical Control Programmer Relationship Specialty Start Date End Date Elsewhere, Pcp PCP - General Family Medicine 01/20/21
--- OUTSIDE RECORDS SUMMARY | 2023-09-05 09:01 | XMS_ITS | Encounter Summary ---
Author Name Unknown Organization [facility] Address [address] [place] [address] Care Team Providers Care Diesel Powerplant Mechanic Helper Name Role Phone Elsewhere, Pcp Primary Care Provider Unavailabl e Encounter Details Date Type Department Care Team (Late st Contact Info) Description 07/24/2023 Clinical Communication Department of Radiation Oncology in [place], [place] [address] [place] [address] Sophia Kemp M.D. [address] [place] [address] Social History Tobacco Use Types Packs/Day Years [...] often do you attend chur ch or buddhist services? Patient declined 05/20/2020 Do you belong to any clubs o r organizations such as yazidism groups, unions, fraternal or athletic groups, or [...] more drinks on one occasion? Never 05/20/2020 [facility] of Occupat ional [facility] - Occupational Stress Questionnaire Answer Date Recorded [...] Sex Assigned at Female 06/28/2023 7:51 PM ELEVATOR ERECTOR HELPER Gender Identity Female 06/28/2023 7:52 PM ELEVATOR ERECTOR HELPER Sexual Orientation Straight 06/28/2023 7: 52 PM ELEVATOR ERECTOR HELPER documented as of this encounter Miscellaneous Notes * Telephone Encounter - Hyacinth Garrett - 07/24/2023 2:08 PM CDT Other Reason for Call Caller: Family Fare Relationships to patient: Assistant Media Buyer Reason for call: Pharmacy called and they are unable to fill the prescription for this patients mouthwash as they are not a compounding pharmacy. documented in this encounter Plan of Treatment Not on file documented as of this encounter Visit Diagnoses Not on filedocumented in this encounter Care Teams Diesel Powerplant Mechanic Helper Relationship Specialty Start Date End Date Elsewhere, Pcp PCP - General Family Medicine 01/20/21 documented as of this encounter
--- OUTSIDE RECORDS SUMMARY | 2023-09-05 09:01 | XMS_ITS ---
Author Name Unknown Organization [facility] Address [address] [place] [address] Care Team Providers Care History Instructor Name Role Phone Unavailable Unavailable Unavailable Surgery Details Not on file Complications Check Surgery Details section. Procedure Estimated Blood Loss Check Surgery Details section. Procedure Findings Check Surgery Details section. Procedure Specimens Taken Check Surgery Details section.
--- OUTSIDE RECORDS SUMMARY | 2023-09-05 09:02 | XMS_ITS | Encounter Summary ---
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 [address] [place] [address] T Radiation Oncology at [place] [address] [place] [id number] Referral ID Status Reason Start Date Expiration Date Visits Re quested Visits Authorized [id number] Closed 07/08/2023 06/26/2024 5 5 Encounter Details Date Type Department Care Team (Latest Contact Info) Description 07/19/2023 1:14 PM CDT - 07/19/2023 11:59 PM CDT Hospital Encounter Department of Radiation Oncology in [place], [place] [address] [place] [phone] Sophia Kemp M.D. [address] [place] [phone] Discharge Disposition: Home or Self Care Social [...] often do you attend chur ch or buddhism services? Patient declined 05/20/2020 Do you belong to any clubs o r organizations such as pentecostal groups, unions, fraternal or athletic groups, or [...] more drinks on one occasion? Never 05/20/2020 [facility] of Occupat ional Health - Occupational [...] Sex Assigned at Female 06/28/2023 7:51 PM SEWING MACHINE TESTER Gender Identity Female 06/28/2023 7:52 PM SEWING MACHINE TESTER Sexual Orientation Straight 06/28/2023 7: 52 PM SEWING MACHINE TESTER documented as of this encounter Medications at [...] taking ibuprofen for surgical pain 01/22/2021 omega 2-rks-deb-fish oil 1,000 mg (120 mg-180 mg) capsule [...] on filedocumented in this encounter Care Teams Project Management Analyst Relationship Specialty Start Date End Date Elsewhere, Pcp PCP - General Family Medicine 01/20/21 documented as of this encounter
--- OUTSIDE RECORDS SUMMARY | 2023-09-05 09:02 | XMS_ITS | Encounter Summary ---
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 [address] [place] [address] [facility] Region Referral ID Status Reason Start Date Expiration Date Visits Re quested Visits Authorized [id number] Closed 06/27/2023 06/26/2024 1 1 Encounter Details Date Type Department Care Team (Latest Contact Info) Description 07/01/2023 2:24 PM CDT - 07/01/2023 5:05 PM CDT Hospital Encounter Department of Radiation Oncology in [place], [place] [address] [place] [phone] Sophia Kemp M.D. 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 Patient declined 05/20/2020 Do you belong [...] more drinks on one occasion? Never 05/20/2020 [facility] of Occupat ional Health - Occupational Stress [...] Sex Assigned at Female 06/28/2023 7:51 PM GRINDER SET UP OPERATOR JIG Gender Identity Female 06/28/2023 7:52 PM GRINDER SET UP OPERATOR JIG Sexual Orientation Straight 06/28/2023 7: 52 PM GRINDER SET UP OPERATOR JIG documented as of this encounter Medications at [...] taking ibuprofen for surgical pain 01/22/2021 omega 7-jbu-aig-fish oil 1,000 mg (120 mg-180 mg) capsule [...] planning. CT images were transferred to the [employer] treatment planning system, after a reference isocenter was determined and marked. Segmentation and treatment planning will take place prior to treatment delivery. Patient set up and imaging was appropriate and completed without incident. Center Specialists use:No Associated attestation - Sophia Kemp M.D. - 07/01/2023 5:05 PM CDT I was present during all critical and garcia portions of the procedure(s) and immediately available [facility] services the entire duration. See note for [...] (HCC) documented in this encounter Care Teams Field Service Poultry Technician Relationship Specialty Start Date End Date Elsewhere, Pcp PCP - General Family Medicine 01/20/21 documented as of this encounter
--- OUTSIDE RECORDS SUMMARY | 2023-09-05 09:02 | XMS_ITS | Encounter Summary ---
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 [address] [place] [address] T Radiation Oncology at [place] [address] [place] [phone] Referral ID Status Reason Start Date Expiration Date Visits Re quested Visits Authorized [id number] Closed 07/08/2023 06/26/2024 5 5 Encounter Details Date Type Department Care Team (Latest Contact Info) Description 07/09/2023 1:40 PM CDT - 07/09/2023 11:59 PM CDT Hospital Encounter Department of Radiation Oncology in [place], [place] [address] [place] [phone] Sophia Kemp M.D. [address] [place] [phone] Discharge Disposition: Home or Self Care Social [...] often do you attend chur ch or pentecostalism services? Patient declined 05/20/2020 Do you belong [...] more drinks on one occasion? Never 05/20/2020 [facility] of Occupat ional Health - Occupational Stress [...] Sex Assigned at Female 06/28/2023 7:51 PM TUMBLER MACHINE OPERATOR Gender Identity Female 06/28/2023 7:52 PM TUMBLER MACHINE OPERATOR Sexual Orientation Straight 06/28/2023 7: 52 PM TUMBLER MACHINE OPERATOR documented as of this encounter [...] taking ibuprofen for surgical pain 01/22/2021 omega 8-yia-wip-fish oil 1,000 mg (120 mg-180 mg) capsule [...] on filedocumented in this encounter Care Teams Post Splitter Relationship Specialty Start Date End Date Elsewhere, Pcp PCP - General Family Medicine 01/20/21 documented as of this encounter
--- OUTSIDE RECORDS SUMMARY | 2023-09-05 09:02 | XMS_ITS | Encounter Summary ---
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 [address] [place] [address] T Radiation Oncology at [place] [address] [place] [phone] Referral ID Status Reason Start Date Expiration Date Visits Re quested Visits Authorized [id number] Closed 07/08/2023 06/26/2024 5 5 Encounter Details Date Type Department Care Team (Latest Contact Info) Description 07/11/2023 2:07 PM CDT - 07/11/2023 11:59 PM CDT Hospital Encounter Department of Radiation Oncology in [place], [place] [address] [place] [phone] Sophia Kemp M.D. [address] [place] [phone] Discharge Disposition: Home or Self Care Social [...] more drinks on one occasion? Never 05/20/2020 [facility] of Occupat ional Health - Occupational [...] Sex Assigned at Female 06/28/2023 7:51 PM STEAM BOILER FIREMAN Gender Identity Female 06/28/2023 7:52 PM STEAM BOILER FIREMAN Sexual Orientation Straight 06/28/2023 7: 52 PM STEAM BOILER FIREMAN documented as of this encounter Medications at [...] taking ibuprofen for surgical pain 01/22/2021 omega 3-jlp-vra-fish oil 1,000 mg (120 mg-180 mg) capsule [...] on filedocumented in this encounter Care Teams Microfilm Machine Operator Relationship Specialty Start Date End Date Elsewhere, Pcp PCP - General Family Medicine 01/20/21 documented as of this encounter
--- OUTSIDE RECORDS SUMMARY | 2023-09-05 09:02 | XMS_ITS | Encounter Summary ---
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 [address] [place] [address] [facility] Region Referral ID Status Reason Start Date Expiration Date V isits Requested Visits Authorized [id number] Authorized 06/27/2023 06/26/2024 10 10 Encounter Details Date Type Department Care Team (Latest Contact Info) Description 07/15/2023 1:42 PM CDT - 07/15/2023 5:08 PM CDT Hospital Encounter Department of Radiation Oncology [address] [place] [address] Sophia Kemp M.D. 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 Patient declined 05/20/2020 Do you belong to any clubs o r organizations such as rastafarian groups, unions, fraternal or athletic groups, or [...] more drinks on one occasion? Never 05/20/2020 [facility] of Occupat ional Health - Occupational [...] Sex Assigned at Female 06/28/2023 7:51 PM RADIAL DRILL PRESS OPERATOR Gender Identity Female 06/28/2023 7:52 PM RADIAL DRILL PRESS OPERATOR Sexual Orientation Straight 06/28/2023 7: 52 PM RADIAL DRILL PRESS OPERATOR documented as of this encounter Last [...] Body Mass Index 42.76 03/01/2021 11:13 AM RADIAL DRILL PRESS OPERATOR documented in this encounter Medications at Time [...] taking ibuprofen for surgical pain 01/22/2021 omega 7-mti-rkr-fish oil 1,000 mg (120 mg-180 mg) capsule [...] (cGy) First Treatment Last Treatment Elapsed Days [id number] 600 1800 3000 07/09/2023 07/15/2023 6 [id number] 600 1800 3000 07/09/2023 07/15/2023 6 Course [...] Stage IB (cT2, cN0, cM0, G2, ER+, CO+, HER2-) left breast cancer, s/p surgery #3 [...] (HCC) documented in this encounter Care Teams Dementia Program Director Relationship Specialty Start Date End Date Elsewhere, Pcp PCP - General Family Medicine 01/20/21 documented as of this encounter
--- OUTSIDE RECORDS SUMMARY | 2023-09-05 09:02 | XMS_ITS | Encounter Summary ---
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 [address] [place] [address] T Radiation Oncology at [place] [address] [place] [phone] Referral ID Status Reason Start Date Expiration Date Visits Re quested Visits Authorized [id number] Closed 07/08/2023 06/26/2024 5 5 Encounter Details Date Type Department Care Team (Latest Contact Info) Description 07/17/2023 1:46 PM CDT - 07/17/2023 11:59 PM CDT Hospital Encounter Department of Radiation Oncology in [place], [place] [address] [place] [phone] Sophia Kemp M.D. [address] [place] [phone] Discharge Disposition: Home or Self Care Social [...] any clubs o r organizations such as latter day groups, unions, fraternal or athletic groups, or [...] more drinks on one occasion? Never 05/20/2020 [facility] of Occupat ional Health - Occupational [...] Sex Assigned at Female 06/28/2023 7:51 PM STOP ATTACHER Gender Identity Female 06/28/2023 7:52 PM STOP ATTACHER Sexual Orientation Straight 06/28/2023 7: 52 PM STOP ATTACHER documented as of this encounter Medications at [...] taking ibuprofen for surgical pain 01/22/2021 omega 9-wqu-ttm-fish oil 1,000 mg (120 mg-180 mg) capsule [...] on filedocumented in this encounter Care Teams Deck Molder Relationship Specialty Start Date End Date Elsewhere, Pcp PCP - General Family Medicine 01/20/21 documented as of this encounter
--- OUTSIDE RECORDS SUMMARY | 2023-09-05 09:02 | XMS_ITS | Encounter Summary ---
Author Name Unknown Organization [facility] Address [address] [place] [address] Care Team Providers Care Teacher Of The Emotionally Disturbed Name Role Phone Elsewhere, Pcp Primary Care Provider Unavailabl e Encounter Details Date Type Department Care Team (Late st Contact Info) Description 07/24/2023 Clinical Communication Department of Radiation Oncology in [place], [place] [address] [place] [address] Sophia Kemp M.D. [address] [place] [address] Social History Tobacco Use Types Packs/Day Years [...] often do you attend chur ch or confucianist services? Patient declined 05/20/2020 Do you belong to any clubs o r organizations such as scientologist groups, unions, fraternal or athletic groups, or [...] on one occasion? Never 05/20/2020 [facility] of Occupat ional Health - Occupational [...] Sex Assigned at Female 06/28/2023 7:51 PM INCOMING INSPECTOR Gender Identity Female 06/28/2023 7:52 PM INCOMING INSPECTOR Sexual Orientation Straight 06/28/2023 7: 52 PM INCOMING INSPECTOR documented as of this encounter Miscellaneous [...] benefit. We discussed the use of scheduled clav-obt-oaajvvn pain medications forfirst-line pain management. She denies [...] She would like a call back at [phone]. documented in this encounter Plan of Treatment Not on file documented as of this encounter Visit Diagnoses Not on filedocumented in this encounter Care Teams Teacher Of The Emotionally Disturbed Relationship Specialty Start Date End Date Elsewhere, Pcp PCP - General Family Medicine 01/20/21 documented as of this encounter
--- OUTSIDE RECORDS SUMMARY | 2023-09-05 09:02 | XMS_ITS | Encounter Summary ---
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 [address] [place] [address] [facility] Region Referral ID Status Reason Start Date Expiration Date Visits Re quested Visits Authorized [id number] Closed 06/27/2023 06/26/2024 1 1 Encounter Details Date Type Department Care Team (Latest Contact Info) Description 07/01/2023 1:39 PM CDT - 07/01/2023 2:23 PM CDT Hospital Encounter Department of Radiation Oncology in [place], [place] [address] [place] [phone] Sophia Kemp M.D. [address] [place] [phone] Mara Wylie R.N. 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 Patient declined 05/20/2020 Do you belong to any clubs o r organizations such as islam groups, unions, fraternal or athletic groups, or [...] Sex Assigned at Female 06/28/2023 7:51 PM VICE PRESIDENT MEDICAL AFFAIRS Gender Identity Female 06/28/2023 7:52 PM VICE PRESIDENT MEDICAL AFFAIRS Sexual Orientation Straight 06/28/2023 7: 52 PM VICE PRESIDENT MEDICAL AFFAIRS documented as of this encounter Last Filed Vital Signs Vital Sign Reading Time Taken Comments Blood Pressure - - Pulse - - Temperature - - Respiratory Rate - - Oxygen Saturation - - Inhaled Oxygen Concentration - - Weight 97.9 kg (215 lb 13.3 oz) 07/01/2023 1:57 PM CDT Height - - Body Mass Index 42.37 03/01/2021 11:13 AM VICE PRESIDENT MEDICAL AFFAIRS documented in this encounter Medications at Time [...] taking ibuprofen for surgical pain 01/22/2021 omega 7-coq-maa-fish oil 1,000 mg (120 mg-180 mg) capsule [...] mL documented in this encounter Care Teams Steward/Stewardess Relationship Specialty Start Date End Date Elsewhere, Pcp PCP - General Family Medicine 01/20/21 documented as of this encounter
--- OUTSIDE RECORDS SUMMARY | 2023-09-05 09:02 | XMS_ITS | Encounter Summary ---
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 [address] [place] [address] T Radiation Oncology at [place] [address] [place] [phone] Referral ID Status Reason Start Date Expiration Date Visits Re quested Visits Authorized [id number] Closed 07/08/2023 06/26/2024 5 5 Encounter Details Date Type Department Care Team (Latest Contact Info) Description 07/15/2023 1:42 PM CDT - 07/15/2023 11:59 PM CDT Hospital Encounter Department of Radiation Oncology in [place], [place] [address] [place] [phone] Sophia Kemp M.D. [address] [place] [phone] Discharge Disposition: Home or Self Care Social [...] often do you attend chur ch or anglican services? Patient declined 05/20/2020 Do you belong to any clubs o r organizations such as orthodox groups, unions, fraternal or athletic groups, or [...] more drinks on one occasion? Never 05/20/2020 [facility] of Occupat ional Health - Occupational [...] Sex Assigned at Female 06/28/2023 7:51 PM FRONT OFFICE ADMINISTRATOR Gender Identity Female 06/28/2023 7:52 PM FRONT OFFICE ADMINISTRATOR Sexual Orientation Straight 06/28/2023 7: 52 PM FRONT OFFICE ADMINISTRATOR documented as of this encounter Medications at [...] taking ibuprofen for surgical pain 01/22/2021 omega 6-sxt-oxs-fish oil 1,000 mg (120 mg-180 mg) capsule [...] on filedocumented in this encounter Care Teams Cementer Oil Well Relationship Specialty Start Date End Date Elsewhere, Pcp PCP - General Family Medicine 01/20/21 documented as of this encounter
--- OUTSIDE RECORDS SUMMARY | 2023-09-05 09:02 | XMS_ITS | Encounter Summary ---
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 [address] [place] [address] [facility] Region Referral ID Status Reason Start Date Expiration Date V isits Requested Visits Authorized [id number] Authorized 06/27/2023 06/26/2024 10 10 MOLOGY TEACHER * Outpatient (Routine) - Authorized Specialty Diagnoses / Procedures Referred By Sanjuana t Referred To Contact Radiation Oncology Sophia Kemp M.D. 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 [address] [place] [address] T Radiation Oncology at [place] [address] [place] [phone] Referral ID Status Reason Start Date Expiration Date Visits Re quested Visits Authorized [id number] Closed 07/08/2023 06/26/2024 5 5 MOLOGY TEACHER Encounter Details Date Type Department Care Team (Late st Contact Info) Description 06/27/2023 Orders Only Department of Radiation Oncology in [place], [place] [address] [place] [phone] Janette Haley P.A.-C., M.S. 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 Patient declined 05/20/2020 Do you belong to any clubs o r organizations such as evangelical groups, unions, fraternal or athletic groups, or [...] more drinks on one occasion? Never 05/20/2020 [facility] of Occupat ional Health - Occupational [...] Sex Assigned at Female 06/28/2023 7:51 PM SEISMOLOGY TEACHER Gender Identity Female 06/28/2023 7:52 PM SEISMOLOGY TEACHER Sexual Orientation Straight 06/28/2023 7: 52 PM SEISMOLOGY TEACHER documented as of this encounter Plan of [...] (HCC) documented in this encounter Care Teams Nuisance Wildlife Specialist Relationship Specialty Start Date End Date Elsewhere, Pcp PCP - General Family Medicine 01/20/21 documented as of this encounter
--- OUTSIDE RECORDS SUMMARY | 2023-09-05 09:02 | XMS_ITS | Encounter Summary ---
Author Name Unknown Organization [facility] Address [address] [place] [address] Care Team Providers Care Burnishing Machine Operator Name Role Phone Elsewhere, Pcp Primary Care Provider Unavailabl e Encounter Details Date Type Department Care Team (Late st Contact Info) Description 07/19/2023 Documentation Department of Radiation Oncology in [place], [place] [address] [place] [address] Sophia Kemp M.D. [address] [place] [address] Social History Tobacco Use Types Packs/Day Years [...] often do you attend chur ch or jehovah's witness services? Patient declined 05/20/2020 Do you belong to any clubs o r organizations such as temple groups, unions, fraternal or athletic groups, or [...] more drinks on one occasion? Never 05/20/2020 [facility] of Occupat ional Health - [...] Sex Assigned at Female 06/28/2023 7:51 PM DIRECTOR RECREATION CENTER Gender Identity Female 06/28/2023 7:52 PM DIRECTOR RECREATION CENTER Sexual Orientation Straight 06/28/2023 7: 52 PM DIRECTOR RECREATION CENTER documented as of this encounter Miscellaneous Notes [...] (cGy) First Treatment Last Treatment Elapsed Days [id number] 5 / 5 600 3000 3000 07/09/2023 07/19/2023 10 G5XlhdaE 5 / 5 600 3000 3000 07/09/2023 [...] R.N., 07/25/2023 4:06 PM CDT [facility] [address] [place] [address] documented in this encounter Plan of Treatment Not on file documented as of this encounter Visit Diagnoses Diagnosis 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
--- OUTSIDE RECORDS SUMMARY | 2023-09-05 09:02 | XMS_ITS | Encounter Summary ---
Author Name Unknown Organization [facility] Address [address] [place] [address] Care Team Providers Care Shipping And Receiving Coordinator Name Role Phone Elsewhere, Pcp Primary Care Provider Unavailabl e Reason for Visit * Appointment Request (Routine) - Closed Specialty Diagnoses / Procedures Referred By Contac t Referred To Contact Radiation Oncology Diagnoses Malignant Neoplasm Of Fallopian Tube Laterality Unknown (HCC) Eloina Alarcon M.D. [address] [place] [address] Referral ID Status Reason Start Date Expiration Date Visits Re quested Visits Authorized [id number] Closed 06/28/2023 06/27/2024 1 1 Encounter Details Date Type Department Care Team (Latest Contact Info) Description 07/01/2023 12:43 PM CDT - 07/01/2023 1:38 PM CDT Hospital Encounter Department of Radiation Oncology in [place], [place] [address] [place] [phone] Sophia Kemp M.D. 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 Patient declined 05/20/2020 Do you belong to any clubs o r organizations such as moravian groups, unions, fraternal or athletic groups, or [...] more drinks on one occasion? Never 05/20/2020 [facility] - [...] Sex Assigned at Female 06/28/2023 7:51 PM HOSTED SERVICES ANALYST Gender Identity Female 06/28/2023 7:52 PM HOSTED SERVICES ANALYST Sexual Orientation Straight 06/28/2023 7: 52 PM HOSTED SERVICES ANALYST documented as of this encounter Last Filed [...] Body Mass Index 42.37 03/01/2021 11:13 AM HOSTED SERVICES ANALYST documented in this encounter Discharge Instructions * [...] taking ibuprofen for surgical pain 01/22/2021 omega 1-qua-fzv-fish oil 1,000 mg (120 mg-180 mg) capsule [...] G2, 0.3 cm from margin, ER 100%, [place] 99%, HER2- by FISH 06/01/2020 - 06/07/2020 Radiation Therapy 2600 cGy in 5 fractions Radiation Therapy Treatment Details (06/01/2020 - 06/07/2020) Site: Left Breast Technique: 3D OUTPATIENT SCHEDULER Goal: Curative Planned Treatment Start Date: 06/01/2020 [...] education level: 12th grade Occupational History Employer: [employer] Tobacco Use Smoking status: Never Smokeless tobacco: [...] Stage IB (cT2, cN0, cM0, G2, ER+, [place]+, HER2-) left breast cancer, s/p surgery #3 [...] Haley P.A.-C., M.S. 07/01/2023 1:56 PM CDT [facility] [address] [place] [address] Associated attestation - Sophia Kemp M.D. - [...] We discussed the acute as well as assisted risks, including, but not limited to fatigue, [...] 2023. My thanks to Drs. Alarcon and ePrcy for the opportunity to participate in this [...] Stage IB (cT2, cN0, cM0, G2, ER+, [place]+, HER2-) left breast cancer, s/p surgery #3 Hypofractionated radiotherapy to the left breast and cavity completed on June 07, 2020 Signed by: Sophia Kemp M.D. 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
--- OUTSIDE RECORDS SUMMARY | 2023-09-05 09:02 | XMS_ITS | Clinical Summary ---
Author Name Unknown Organization [employer] [facility] Address [place], [place] [address] Care Team Providers Care Telecommunication Engineer Name Role Phone Sara Greer MD Primary Care Prov ider Deon Mackay MD Unavailable [phone] Allergies Active Allergy Reactions Criticality Noted Date Comments Dust Mites Runny Nose 09/23/2012 found at allergy test Sulfa (Sulfonamide Antibiotics) Nausea And Vomiting Low 12/17/2006 nausea Medications Medication Sig Dispensed Refills Start Date End Date Status ONE-A-DAY WOMENS FORMULA 27 MG-0.4 MG TAB take 1 tablet by oral route once daily with food 0 10/07/2007 Active Dksaj-5-XGF-EPA-Fish Oil 1,000 mg (120 mg-180 mg) cap [...] Department Care Team Description 06/20/2023 Orders Only [facility] Scanner 1 scan: (1-Ord) [facility], PET/CT SCAN MID-ORBITS TO PROXIMAL THIGHS, [...] Diagnosis Comments SCAN-RADIOLOGY REPORT 06/20/2023 12:00 AM SET UP MACHINIST XR MAMMO JACLYN BILAT SCREEN Routine 05/23/2023 10:48 AM SET UP MACHINIST Breast cancer screening ANTI HCV Routine 04/11/2020 10:25 AM SET UP MACHINIST Need for hepatitis C screening test TREE SURGEON HELPER THIN PREP PAP SCREEN IMAGED Routine 02/29/2020 2:40 PM SET UP MACHINIST Pap smear for cervical cancer screening LIPID PANEL W REFLEX MEASURED LDL Routine 02/19/2020 1:58 PM CDT Screening for lipoid disorders from Last 3 Months or Most Recently Relevant to Health Maintenance Results * SCAN-RADIOLOGY REPORT (06/20/2023 12:00 AM SET UP MACHINIST) Anatomical Region Laterality Modality Other Scanner OTHER * XR MAMMO JACLYN BILAT SCREEN (05/23/2023 10:48 AM SET UP MACHINIST) Anatomical Region Laterality Modality BREASTS, Breast Left, Breast Right Bilateral Mammography Impressions 05/23/2023 3:58 PM SET UP MACHINIST ??There is no radiographic evidence for malignancy. ??Recommend annual mammograms. MAMMOGRAM ASSESSMENT: ??ACR 1 Negative PATIENTS: You will also receive a letter with your examination results in an easy to read format. ??If you have questions about your results, please contact your referring provider. Narrative 05/23/2023 3:58 PM SET UP MACHINIST For Patients: As a result of the 21st Century Cures Act, medical imaging exams and procedure reports are released immediately into your electronic medical record. You may view this report before your referring provider. If you have questions, please contact your health care provider. XR MAMMO JACLYN BILAT SCREEN [[id number]] CLINICAL HISTORY: ??This is an asymptomatic 62 y.o. patient. INDICATION FOR EXAM: Mammogram Screening. TECHNIQUE: CC & MLO views were obtained. ??This study was evaluated with the assistance of Computer-Aided Detection. Breast Tomosynthesis was used in interpretation. COMPARISON FILM: Yes 05/04/22 [facility] 03/29/21 [facility] FINDINGS: ??The breasts are heterogeneously dense, which may obscure small masses. There are no dominant masses, suspicious micro calcifications or areas of architectural distortion. Sara Greer MD MAMMO * ANTI HCV (04/11/2020 10:25 AM SET UP MACHINIST) Pathologist [facility] [place] HEPATITIS C ANTIBODY Non-React christopher Non-React christopher 04/11/2020 6:09 PM SET UP MACHINIST [facility] Comment:Antibodies to HCV no t detected; does not exclude the possibility of exposure to HCV. Blood BLOOD SPECIMEN / Unknown Butterfly / Unknown 04/11/2020 10:25 AM SET UP MACHINIST 04/11/2020 10:28 AM SET UP MACHINIST Sara Greer MD SEND OUTS [facility] [address] [place] [address], * TREE SURGEON HELPER THIN PREP PAP SCREEN IMAGED (02/29/2020 2:40 PM SET UP MACHINIST) Pathologist [facility] [place] Case Report Gynecologic Cytology Report ? Case: [id number] ? Authorizing Provider: ??Sara Greer ? Collected: ? 02/29/2020 1440 ? MD Afia ? Ordering Location: ? [employer] [facility] ?? Received: ?02/29/2020 1526 ? Clinic ? First Screen: ?Renetta Pineda ? Specimen: ?TREE SURGEON HELPER ThinPrep Vial Screening, Cervical ? 03/08/2020 12:46 PM SET UP MACHINIST [facility] INTERPRETATION/ RESULT NEGATIVE FOR INTRAEPITHELIAL LESION OR MALIGNANCY (NIL) (none) 03/08/2020 12:46 PM SET UP MACHINIST [facility] IMEN ADEQUACY Satisfactory for evaluation No endocervical component seen 03/08/2020 12:46 PM SET UP MACHINIST [facility] HPV REQUEST HPV and PAP 03/08/2020 12:46 PM SET UP MACHINIST [facility] Date of LMP N/A 03/08/2020 12:46 PM SET UP MACHINIST [facility] Last Pap Date 01/24/17 03/08/2020 12:46 PM SET UP MACHINIST [facility] Last Pap Result NIL 0 12:46 PM SET UP MACHINIST [facility] Abnormal Pap or Hutchinson Bx in last 5 years No 03/08/2020 12:46 PM SET UP MACHINIST [facility] Menstrual Status Postmenopausal 03/08/2020 12:46 PM SET UP MACHINIST [facility] Hutchinson Bx Done Today No 03/08/2020 12:46 PM SET UP MACHINIST [facility] Additional Information None given 03/08/2020 12:46 PM SET UP MACHINIST [facility] Comment: Cytology is screened at [facility] - [address], [place] [address] and [facility] - [address], [place] [address] and [facility] - [address] [place] [address] Interpreted at [facility] - [address], [place] [address] Automated Review Successful 03/08/2020 12:46 PM SET UP MACHINIST [facility] Comment:Specimen processed s uccessfully by automated cadd drafter device, ThinPrep Imaging System, [employer] ANCILLARY TESTING TREE SURGEON HELPER HPV Ordered, Please see separate report 03/08/2020 12:46 PM SET UP MACHINIST [facility] Note The pap test is [...] pre-malignant and malignant lesions. 03/08/2020 12:46 PM SET UP MACHINIST [facility] Other (Cervical) Non-Blood / Unknown 02/29/2020 2:40 PM SET UP MACHINIST 02/29/2020 3:26 PM SET UP MACHINIST Sara Greer MD PATHOLOGY/ CYTOLOGY [facility] [address] [place] [address], [place] * (ABNORMAL) LIPID PANEL W REFLEX MEASURED LDL (02/19/2020 1:58 PM CDT) CHOLESTEROL,TOTAL 223(H) 100 - 199 mg/dL 02/19/2020 9:33 PM CDT [facility] TRIGLYCERIDES 128 <150 mg/dL 02/19/2020 9:33 PM CDT [facility] HDL CHOLESTEROL 65 >40 mg/dL 0 9:33 PM CDT [facility] NON-HDL CHOLESTEROL 158(H) <145 mg/dl 02/19/2020 9:33 PM CDT [facility] CHOL/HDL RATIO 3.43 <4.50 02/19/2020 9:33 PM CDT [facility] LDL CHOLESTEROL 132(H) <=130 mg/dL 02/19/2020 9:33 PM CDT [facility] PROVIDER ORDERED STATUS RANDOM 02/19/2020 9:33 PM CDT [facility] Blood BLOOD SPECIMEN / Unknown Butterfly / Unknown 02/19/2020 1:58 PM CDT 02/19/2020 1:58 PM CDT Sara Greer MD CHEMISTRY [facility] [address] [place] [address], [place] from Last 3 Months or Most Recently Relevant to Health Maintenance Care Teams Telecommunication Engineer Relationship Specialty Start Date End Date Sara Greer MD [address] [place] [address] PCP - General 08/11/05 Deon Mackay MD [address] [place] [address] Orthopedics Surgery - Orthopedics 09/19/17
--- NOTE | 2023-09-05 10:00 | CT_ITS ---
Patient: EDMAR MOREJON Facility:?[facility] RIS Patient ID:?[id number] Site Patient ID:?[id number]. Site :?[id number] Study:?CT-Chest/Abd/Pelvis 105CC ISOVUE 370 AND WATER PREP-09/05/2023 10:36:23 AM Ordering Physician:?DR. MCINTOSH Final Report: Indication: F/U POST RADIATION TO LYMPH NODES SUBCLAVICULAR HX OF FALLOPIAN TUBE CANCER Technique: CT Chest/Abd/Pelvis 105CC ISOV[address] 370 AND WATER PREP Please note that all CT scans at this facility use dose modulation, iterative reconstruction, and/or weight-based dosing when appropriate to reduce radiation dose to as low as reasonably achievable. Comparison: CT-PET 06/20/2023, CT 04/17/2023 Findings: In the chest, there is a similar 8 millimeter lymph node anterior to the brijesh which was non avid on the recent PET scan. No pleural or pericardial effusion. Left chest wall Port-A-Cath. Breast tissue is similar. No enlarged axillary or hilar lymph nodes. Stable appearance of the spine with degenerative disc disease. No acute fracture. No suspicious osseous lesion. No infiltrate or edema. No effusion or pneumothorax. No suspicious pulmonary nodule. Subcentimeter PET avid lymph nodes in the left superior mediastinum/left supraclavicular space are similar in morphology to the prior study. In the abdomen, intrahepatic cysts are unchanged. The adrenal glands are normal. The spleen is similar. Pancreas unremarkable. Supraumbilical abdominal wall hernia containing fat. Gallbladder normal. Similar 1 cm lymph node in the left para-aortic space which demonstrated PET avid uptake. Also similar morphology of lower para-aortic lymph node measuring 1.5 cm which demonstrated PET uptake. Smaller lymph node anterior to the distal aorta is also similar. No bowel obstruction. In the pelvis, no pelvic adenopathy. Bladder normal. No bowel obstruction. No pelvic mass. Mild colonic diverticulosis. Appendix normal. Degenerative facet arthropathy lower lumbar spine with slight anterolisthesis of L4 on L5. Impression: Mildly prominent PET avid lymph nodes in the lower para-aortic space and mid periaortic space are similar. Also similar mildly prominent left supraclavicular/left thoracic inlet lymph nodes without change compared to the recent CT PET. No new adenopathy. No suspicious intrahepatic mass or suspicious pulmonary nodule. Please note that all CT scans at this facility use dose modulation, iterative reconstruction, and/or weight-based dosing when appropriate to reduce radiation dose to as low as reasonably achievable. Dictated by Jaime Casey MD @ 09/06/2023 9:36:08 AM Signed by:?Jaime Casey MD @09/06/2023 9:36:08 AM (Electronic Signature)
== END 2023-09-05 09:00 | disposition home or self-care (01) ==
LOC: CT 08:59
PROVIDERS: PCP Family Medicine; Visit Provider Internal Medicine Hematology & Oncology
DX: C57.00 Malignant neoplasm of unspecified fallopian tube (principal); R59.0 Localized enlarged lymph nodes
CPT/HCPCS: 71260; 74177; Q9967

== ENCOUNTER 2023-09-11 14:00 | Outpatient (RCR) | payer OTHER, SELFPAY ==
[2023-03-15] MEDS: HEPARIN 500 UNIT/5 ML SYRINGE IVF (14:18)
[2023-03-15] MEDS: SODIUM CHLORIDE 0.9 % (FLUSH) 10 ML SYRINGE IVF (14:18)
[2023-04-17 09:56] LABS: Basophils Percent Auto 0.3 % (0.0-3.0); Eosinophils Percent Auto 2.9 % (0.0-7.0); Hematocrit 36.8 % (33.0-51.0); Hemoglobin* 11.9 gm/dL (12.0-16.0); Lymphocytes Percent Auto 25.3 % (20-44); Mean Corpuscular HGB Conc 32 gm/dL (32-36); Mean Corpuscular Hemoglobin 30 pg (26-34); Mean Corpuscular Volume 93 fL (80-100); Monocytes Percent Auto 12.5 % (0.0-11.0); Platelet Count* 183 K/uL (140-440); RDW Coefficient of Variation % 13.2 % (11.5-15.5); Red Blood Count 3.94 m/uL (4.00-5.20); Slide Review Reflex No; White Blood Count* 3.84 K/uL (4.50-11.00)
[2023-04-17 10:08] LABS: Albumin* 4.1 g/dL (3.3-5.0)
[2023-04-17 10:09] LABS: Chloride* 105 mmol/L (96-114); Sodium* 138 mmol/L (135-149)
[2023-04-17 10:11] LABS: Anion Gap 7 mEq/L (7-15); Bilirubin Total* 0.3 mg/dL (0.1-1.5); Carbon Dioxide* 26 mmol/L (20-32); Creatinine* 0.6 mg/dL (0.5-1.5); Estimated Glomerular Filt Rate 101 ml/min
[2023-04-17 10:12] LABS: Alanine Aminotransferase* 20 U/L (4-35); Alkaline Phosphatase* 126 U/L (40-150); Aspartate Amino Transferase* 24 U/L (12-35); Blood Urea Nitrogen* 17 mg/dL (7-30); Calcium* 8.9 mg/dL (8.4-10.6); Glucose* 84 mg/dL (60-115); Total Protein* 7.2 g/dL (6.0-8.3)
[2023-04-18 18:41] LABS: Cancer Antigen 125 6 U/mL (<=38)
[2023-06-20 13:30] LABS: Basophils Absolute Auto 0.02 K/uL (0.00-0.30); Basophils Percent Auto 0.4 % (0.0-3.0); Eosinophils Absolute Auto 0.11 K/uL (0.00-0.50); Eosinophils Percent Auto 2.2 % (0.0-7.0); Hematocrit 38.1 % (33.0-51.0); Hemoglobin* 12.3 gm/dL (12.0-16.0); Lymphocytes Percent Auto 15.1 % (20-44); Mean Corpuscular HGB Conc 32 gm/dL (32-36); Mean Corpuscular Hemoglobin 30 pg (26-34); Mean Corpuscular Volume 93 fL (80-100); Monocytes Percent Auto 7.3 % (0.0-11.0); Platelet Count* 213 K/uL (140-440); RDW Coefficient of Variation % 14.1 % (11.5-15.5); White Blood Count* 5.09 K/uL (4.50-11.00)
[2023-06-20 13:31] LABS: Albumin* 4.2 g/dL (3.3-5.0); Chloride* 103 mmol/L (96-114)
[2023-06-20 13:32] LABS: Sodium* 137 mmol/L (135-149)
[2023-06-20 13:33] LABS: Slide Review Reflex No
[2023-06-20 13:34] LABS: Alkaline Phosphatase* 127 U/L (40-150); Anion Gap 10 mEq/L (7-15); Aspartate Amino Transferase* 28 U/L (12-35); Bilirubin Total* 0.6 mg/dL (0.1-1.5); Carbon Dioxide* 24 mmol/L (20-32); Creatinine* 0.6 mg/dL (0.5-1.5); Estimated Glomerular Filt Rate 101 ml/min; Total Protein* 7.6 g/dL (6.0-8.3)
[2023-06-20 13:35] LABS: Alanine Aminotransferase* 24 U/L (4-35); Blood Urea Nitrogen* 17 mg/dL (7-30); Calcium* 9.6 mg/dL (8.4-10.6); Glucose* 93 mg/dL (60-115)
[2023-06-20] MEDS: HEPARIN 500 UNIT/5 ML SYRINGE IVF (14:46)
[2023-06-20] MEDS: SODIUM CHLORIDE 0.9 % (FLUSH) 10 ML SYRINGE IVF (14:47)
[2023-06-22 05:18] LABS: Cancer Antigen 125 5 U/mL (<=38)
--- NOTE | 2023-09-04 09:37 | ONC.NURNOTE ---
Pt called reporting she has a UTI and is on 2nd day of antibiotics today. Her symptoms are improving significantly. She wanted to check if any concern with labs/CT tomorrow. Reinforced pt should hydrate extensively today and tomorrow for processing CT dye and mention it to utility technician tomorrow as fyi. Pt agreeable to this plan.
[2023-09-05 09:40] LABS: Basophils Percent Auto 0.6 % (0.0-3.0); Eosinophils Percent Auto 6.5 % (0.0-7.0); Hematocrit 34.9 % (33.0-51.0); Hemoglobin* 11.3 gm/dL (12.0-16.0); Immature Granulocytes Pct Auto 1.2 %; Mean Corpuscular HGB Conc 32 gm/dL (32-36); Mean Corpuscular Hemoglobin 31 pg (26-34); Mean Corpuscular Volume 95 fL (80-100); Monocytes Percent Auto 12.4 % (0.0-11.0); Neutrophils Percent Auto 64.3 % (42.0-72.0); Platelet Count* 186 K/uL (140-440); RDW Coefficient of Variation % 14.5 % (11.5-15.5); Red Blood Count 3.66 m/uL (4.00-5.20); White Blood Count* 3.39 K/uL (4.50-11.00)
[2023-09-05 09:44] LABS: Slide Review Reflex No
[2023-09-05 09:51] LABS: Chloride* 106 mmol/L (96-114)
[2023-09-05 09:52] LABS: Potassium* 3.8 mmol/L (3.6-5.1); Sodium* 139 mmol/L (135-149)
[2023-09-05 09:54] LABS: Anion Gap 6 mEq/L (7-15); Bilirubin Total* 0.5 mg/dL (0.1-1.5); Carbon Dioxide* 27 mmol/L (20-32); Creatinine* 0.6 mg/dL (0.5-1.5); Est. Creatinine Clearance* 41.36; Estimated Glomerular Filt Rate 101 ml/min; Total Protein* 7.4 g/dL (6.0-8.3)
[2023-09-05 09:55] LABS: Alanine Aminotransferase* 24 U/L (4-35); Alkaline Phosphatase* 140 U/L (40-150); Aspartate Amino Transferase* 32 U/L (12-35); Blood Urea Nitrogen* 12 mg/dL (7-30); Calcium* 8.9 mg/dL (8.4-10.6); Glucose* 85 mg/dL (60-115)
[2023-09-07 08:22] LABS: Cancer Antigen 125 5 U/mL (<=38)
== END 2023-09-11 23:59 | disposition home or self-care (01) ==
LOC: CCIC 14:00
PROVIDERS: PCP Family Medicine; Referring Provider Family Medicine; Visit Provider Internal Medicine Hematology & Oncology
DX: C57.01 Malignant neoplasm of right fallopian tube (principal); C50.912 Malignant neoplasm of unspecified site of left female breast; Z17.0 Estrogen receptor positive status [ER+]; Z79.811 Long term (current) use of aromatase inhibitors; M85.80 Other specified disorders of bone density and structure, unspecified site; D75.89 Other specified diseases of blood and blood-forming organs; E03.9 Hypothyroidism, unspecified
CPT/HCPCS: 36415; 36591; 78815; 80053; 85025; 86304; 99211; 99213; 99214; G0463; A9552; J1642

== ENCOUNTER 2023-10-25 08:16 | Outpatient (CLI) | payer OTHER, SELFPAY ==
--- OUTSIDE RECORDS SUMMARY | 2023-10-25 08:18 | XMS_ITS | Clinical Summary ---
Author Organization [facility] Address [address] [place] [address] Care Team Providers Care Ride Operator Name Role Phone Elsewhere, Pcp Primary Care Provider Unavailabl e Source Comments Patient records contain information from all sites at [facility]. For routine questions regarding patient records, call [phone] during business hours, M-F 8:00 AM - 5:00 PM Central Time. Record requests for emergency care only can be directed to [phone] at any time.[facility] Allergies Active Allergy Reactions Criticality Noted Date [...] every morning before breakfast. 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 Patient declined 05/20/2020 Do you belong to any clubs o r organizations such as amish groups, unions, fraternal or athletic groups, or [...] more drinks on one occasion? Never 05/20/2020 [facility] - Occupational [...] Sex Assigned at Female 06/28/2023 7:51 PM SALES PERSON Gender Identity Female 06/28/2023 7:52 PM SALES PERSON Sexual Orientation Straight 06/28/2023 7: 52 PM SALES PERSON Last Filed Vital Signs Vital Sign Reading [...] Body Mass Index 42.76 03/01/2021 11:13 AM SALES PERSON Plan of Treatment Health Maintenance Due Date [...] 2022 03/08/2022, 03/31/2021, 07/28/2020, Additional history exists Depression Screening (Annual PHQ-2) 04/22/2023 DTaP,Tdap,and Td Vaccines (2 - Td or Tdap) 11/27/2023 11/26/2013, 09/14/2004 Influenza Vaccine (#1) 2024 , 01/12/2021, 01/26/2020, Additional history exists Fasting Glucose for Diabetes Screening 01/30/2024 01/29/2021, 01/28/2021, 01/21/2021, Additional history exists Mammogram 05/23/2024 05/23/2023, 02/0 04/2023, 05/04/2022, Additional history exists Lipid (Cholesterol) Screening 02/18/2025 02/19/2020, 01/05/2019, 03/12/2018 HPV Vaccines Aged Out No longer eligi ble based on patient's age to complete this topic Medical Devices Implanted Type Area Vending Machine Attendant Device Identifier Shelf Expiration Date Model / Serial / Lot Knee Implant Knee Implant Bilateral: Abdomen Procedures Procedure Name Priority Date/Time Associated Diagnosis Comments BI BREAST SCREENING BILATERAL WITH TOMOSYNTHESIS RAD - Routine (most inpatients and all outpatients) 05/23/2023 10:48 AM SALES PERSON EXTI THYROID-STIMULATING HORMONE-SENSITIVE (S-TSH), S Routine 08/23/2021 1:55 PM CDT BASIC METABOLIC PANEL, S/P STAT 01/29/2021 6:42 AM CDT EXTI LIPID PANEL W REFLEX MEASURED LDL Routine 02/19/2020 1:58 PM CDT from Last 3 Months or Most Recently Relevant to Health Maintenance Results * (ABNORMAL) Basic Metabolic Panel (01/29/2021 6:42 [...] 01/29/2021 7:34 AM CDT DTL eGFR-Black/Afri can Kosovan >90 >=60 mL/min/BSA 01/29/2021 7:34 AM CDT DTL Comment: ----ADDITIONAL INFORMATION---- Estimated GFR calculated using the 2009 CKD_EPI creatinine equation. eGFR Non-Black/Afric an Kosovan >90 >=60 mL/min/BSA 01/29/2021 7:34 AM CDT [...] Turner M.D., M.S. LAB BLOOD ADD -ON [facility] [address] [place] [address], [facility] DTL [facility] [address] [place] [address] from Last 3 Months or Most Recently Relevant to Health Maintenance Advance Directives For more information, please contact: [phone] * Full Code (Latest Code Status on [...] Answer Comments Full Code: Discussed Care Teams Ride Operator Relationship Specialty Start Date End Date Elsewhere, Pcp PCP - General Family Medicine 01/20/21
--- OUTSIDE RECORDS SUMMARY | 2023-10-25 08:18 | XMS_ITS | Encounter Summary ---
Author Organization [facility] Address [address] [place] [address] Care Team Providers Care Cognos Architect Name Role Phone Elsewhere, Pcp Primary Care Provider Unavailabl e Encounter Details Date Type Department Care Team (Late st Contact Info) Description 07/24/2023 Clinical Communication Department of Radiation Oncology in [place], [place] [address] [place] [address] Sophia Kemp M.D. [address] [place] [address] Social History Tobacco Use Types Packs/Day Years [...] often do you attend chur ch or holiness services? Patient declined 05/20/2020 Do you belong to any clubs o r organizations such as cheondoism groups, unions, fraternal or athletic groups, or [...] more drinks on one occasion? Never 05/20/2020 [facility] [place] [facility] - Occupational Stress [...] Sex Assigned at Female 06/28/2023 7:51 PM TRANSITIONAL NURSE Gender Identity Female 06/28/2023 7:52 PM TRANSITIONAL NURSE Sexual Orientation Straight 06/28/2023 7: 52 PM TRANSITIONAL NURSE documented as of this encounter Miscellaneous Notes [...] benefit. We discussed the use of scheduled aqjm-xpw-pdxtmvw pain medications forfirst-line pain management. She denies [...] She would like a call back at [phone]. documented in this encounter Plan of Treatment Not on file documented as of this encounter Visit Diagnoses Not on filedocumented in this encounter Care Teams Cognos Architect Relationship Specialty Start Date End Date Elsewhere, Pcp PCP - General Family Medicine 01/20/21 documented as of this encounter
--- OUTSIDE RECORDS SUMMARY | 2023-10-25 08:18 | XMS_ITS | Referral Summary ---
Author Organization [facility] Address [address] [place] [address] Care Team Providers Care Ostomy Nurse Name Role Phone Elsewhere, Pcp Primary Care Provider Unavailabl e Source Comments Patient records contain information from all sites at [facility]. For routine questions regarding patient records, call [phone] during business hours, M-F 8:00 AM - 5:00 PM Central Time. Record requests for emergency care only can be directed to [phone] at any time[address] Allergies Active Allergy Reactions Criticality Noted Date [...] every morning before breakfast. 02/29/2020 Active omega 0-fxq-bey-fish oil 1,000 mg (120 mg-180 mg) capsule [...] Overview: Added automatically from request for surgery [id number] Malignant Neoplasm Of Breast Upper Inner Quadrant Female Left 04/11/2020 Cancer Staging:Clinical stage from 03/22/2020:Stage IB(cT2, cN0, cM0, G2, ER+, [place]+, HER2-) - Unsigned Esophagitis Eosinophilic 01/12/2019 Overview: [...] week 05/20/2020 How often do you attend [facility] or tenriism services? Patient declined 05/20/2020 Do you belong to any clubs o r organizations such as adventist groups, unions, fraternal or athletic groups, or [...] more drinks on one occasion? Never 05/20/2020 [facility] ional [facility] - Occupational [...] Sex Assigned at Female 06/28/2023 7:51 PM NONPROFIT FUNDRAISER Gender Identity Female 06/28/2023 7:52 PM NONPROFIT FUNDRAISER Sexual Orientation Straight 06/28/2023 7: 52 PM NONPROFIT FUNDRAISER Last Filed Vital Signs Vital Sign Reading [...] Body Mass Index 42.76 03/01/2021 11:13 AM NONPROFIT FUNDRAISER Plan of Treatment Not on file Medical Devices Implanted Type Area Concrete Crusher Loader Operator Device Identifier Shelf Expiration Date Model / Serial / Lot Knee Implant Knee Implant Bilateral: Abdomen Procedures Procedure Name Priority Date/Time Associated Diagnosis Comments BI BREAST SCREENING BILATERAL WITH TOMOSYNTHESIS RAD - Routine (most inpatients and all outpatients) 05/23/2023 10:48 AM NONPROFIT FUNDRAISER EXTI THYROID-STIMULATING HORMONE-SENSITIVE (S-TSH), S Routine 08/23/2021 [...] 01/29/2021 7:34 AM CDT DTL eGFR-Black/Afri can Norwegian >90 >=60 mL/min/BSA 01/29/2021 7:34 AM CDT DTL Comment: ----ADDITIONAL INFORMATION---- Estimated GFR calculated using the 2009 CKD_EPI creatinine equation. eGFR Non-Black/Afric an Norwegian >90 >=60 mL/min/BSA 01/29/2021 7:34 AM CDT [...] Turner M.D., M.S. LAB BLOOD ADD -ON [facility] [address] [place] [address], [facility] [address] [place] [address] from Last 3 Months or Most Recently Relevant to Health Maintenance Advance Directives For more information, please contact: [phone] * Full Code (Latest Code Status on [...] Answer Comments Full Code: Discussed Care Teams Ostomy Nurse Relationship Specialty Start Date End Date Elsewhere, Pcp PCP - General Family Medicine 01/20/21
--- OUTSIDE RECORDS SUMMARY | 2023-10-25 08:18 | XMS_ITS ---
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
--- OUTSIDE RECORDS SUMMARY | 2023-10-25 08:18 | XMS_ITS | Encounter Summary ---
Author Organization [facility] Address [address] [place] [address] Care Team Providers Care Filter Tip Catcher Name Role Phone Elsewhere, Pcp Primary Care Provider Unavailabl e Encounter Details Date Type Department Care Team (Late st Contact Info) Description 07/19/2023 Documentation Department of Radiation Oncology in [place], [place] [address] [place] [address] Sophia Kemp M.D. [address] [place] [address] Social History Tobacco Use Types Packs/Day Years [...] often do you attend chur ch or shinto services? Patient declined 05/20/2020 Do you belong [...] more drinks on one occasion? Never 05/20/2020 [facility] - [...] Sex Assigned at Female 06/28/2023 7:51 PM RIPSAWYER Gender Identity Female 06/28/2023 7:52 PM RIPSAWYER Sexual Orientation Straight 06/28/2023 7: 52 PM RIPSAWYER documented as of this encounter Miscellaneous Notes [...] (cGy) First Treatment Last Treatment Elapsed Days [id number] 5 / 5 600 3000 3000 07/09/2023 07/19/2023 10 [id number] 5 / 5 600 3000 3000 07/09/2023 [...] Tamica Ramos R.N., 07/25/2023 4:06 PM CDT [facility] [address] [place] [address] documented in this encounter Plan of Treatment Not on file documented as of this encounter Visit Diagnoses Diagnosis 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
--- OUTSIDE RECORDS SUMMARY | 2023-10-25 08:18 | XMS_ITS | Encounter Summary ---
Author Organization [facility] Address [address] [place] [address] Care Team Providers Care Steam Frame Operator Name Role Phone Elsewhere, Pcp Primary Care Provider Unavailabl e Encounter Details Date Type Department Care Team (Late st Contact Info) Description 07/24/2023 Clinical Communication Department of Radiation Oncology in [place], [place] [address] [place] [address] Sophia Kemp M.D. [address] [place] [address] Social History Tobacco Use Types Packs/Day Years [...] often do you attend chur ch or alevism services? Patient declined 05/20/2020 Do you belong [...] more drinks on one occasion? Never 05/20/2020 [facility] Occupat ional [facility] - Occupational Stress Questionnaire Answer Date Recorded [...] Sex Assigned at Female 06/28/2023 7:51 PM ASSOCIATE PROGRAMMER ANALYST Gender Identity Female 06/28/2023 7:52 PM ASSOCIATE PROGRAMMER ANALYST Sexual Orientation Straight 06/28/2023 7: 52 PM ASSOCIATE PROGRAMMER ANALYST documented as of this encounter Miscellaneous Notes * Telephone Encounter - Hyacinth Garrett - 07/24/2023 2:08 PM CDT Other Reason for Call Caller: Family Fare Relationships to patient: Data Center Technician Reason for call: Pharmacy called and they are unable to fill the prescription for this patients mouthwash as they are not a compounding pharmacy. documented in this encounter Plan of Treatment Not on file documented as of this encounter Visit Diagnoses Not on filedocumented in this encounter Care Teams Steam Frame Operator Relationship Specialty Start Date End Date Elsewhere, Pcp PCP - General Family Medicine 01/20/21 documented as of this encounter
--- OUTSIDE RECORDS SUMMARY | 2023-10-25 08:18 | XMS_ITS ---
Author Organization [facility] Address [address] [place] [address] Care Team Providers Care System Developer Associate Manager Name Role Phone Unavailable Unavailable Unavailable Surgery Details Not on file Complications Check Surgery Details section. Procedure Estimated Blood Loss Check Surgery Details section. Procedure Findings Check Surgery Details section. Procedure Specimens Taken Check Surgery Details section.
--- OUTSIDE RECORDS SUMMARY | 2023-10-25 08:19 | XMS_ITS | Encounter Summary ---
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 [address] [place] [address] T Radiation Oncology at [place] [address] [place] [phone] Referral ID Status Reason Start Date Expiration Date Visits Re quested Visits Authorized [id number] Closed 07/08/2023 06/26/2024 5 5 Encounter Details Date Type Department Care Team (Latest Contact Info) Description 07/17/2023 1:46 PM CDT - 07/17/2023 11:59 PM CDT Hospital Encounter Department of Radiation Oncology in [address] [phone] Sophia Kemp M.D. [address] [place] [phone] Discharge Disposition: Home or Self Care Social [...] often do you attend chur ch or yazidi services? Patient declined 05/20/2020 Do you belong to any clubs o r organizations such as anglican groups, unions, fraternal or athletic groups, or [...] more drinks on one occasion? Never 05/20/2020 [facility] Occupat ional [facility] - Occupational [...] Sex Assigned at Female 06/28/2023 7:51 PM PRIZER HAND Gender Identity Female 06/28/2023 7:52 PM PRIZER HAND Sexual Orientation Straight 06/28/2023 7: 52 PM PRIZER HAND documented as of this encounter Medications at [...] taking ibuprofen for surgical pain 01/22/2021 omega 0-qrb-pzj-fish oil 1,000 mg (120 mg-180 mg) capsule [...] on filedocumented in this encounter Care Teams Telephone Cleaner Relationship Specialty Start Date End Date Elsewhere, Pcp PCP - General Family Medicine 01/20/21 documented as of this encounter
--- OUTSIDE RECORDS SUMMARY | 2023-10-25 08:19 | XMS_ITS | Encounter Summary ---
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 [address] [place] [address] T Radiation Oncology at [place] [address] [place] [phone] Referral ID Status Reason Start Date Expiration Date Visits Re quested Visits Authorized [id number] Closed 07/08/2023 06/26/2024 5 5 Encounter Details Date Type Department Care Team (Latest Contact Info) Description 07/19/2023 1:14 PM CDT - 07/19/2023 11:59 PM CDT Hospital Encounter Department of Radiation Oncology in [address] [phone] Sophia Kemp M.D. [address] [place] [phone] Discharge Disposition: Home or Self Care Social [...] any clubs o r organizations such as roman catholic groups, unions, fraternal or athletic groups, [...] Sex Assigned at Female 06/28/2023 7:51 PM VENDING MACHINE MECHANIC Gender Identity Female 06/28/2023 7:52 PM VENDING MACHINE MECHANIC Sexual Orientation Straight 06/28/2023 7: 52 PM VENDING MACHINE MECHANIC documented as of this encounter Medications at [...] taking ibuprofen for surgical pain 01/22/2021 omega 9-ukm-fuw-fish oil 1,000 mg (120 mg-180 mg) capsule [...] on filedocumented in this encounter Care Teams Doctor'S Assistant Relationship Specialty Start Date End Date Elsewhere, Pcp PCP - General Family Medicine 01/20/21 documented as of this encounter
--- OUTSIDE RECORDS SUMMARY | 2023-10-25 08:19 | XMS_ITS | Clinical Summary ---
Author Organization [facility] Address [place], [place] [address] Care Team Providers Care Account Service Associate Name Role Phone Sara Greer MD Primary Care Prov ider Deon Mackay MD Unavailable [phone] Allergies Active Allergy Reactions Criticality Noted Date Comments Dust Mites Runny Nose 09/23/2012 found at allergy test Sulfa (Sulfonamide Antibiotics) Nausea And Vomiting Low 12/17/2006 nausea Medications Medication Sig Dispensed Refills Start Date End Date Status ONE-A-DAY WOMENS FORMULA 27 MG-0.4 MG TAB take 1 tablet by oral route once daily with food 0 8 Active Fsaaq-4-ZEV-EPA-Fis h Oil 1,000 mg (120 mg-180 mg) cap Take 2 capsules by mouth once daily. 0 9 Active anastrozole (ARIMIDEX) 1 mg tablet 1 Active calcium carbonate-vitamin D3 1,000 mg(2,500 mg)-800 unit tab Take by mouth once daily. 0 1 Active magnesium oxide (MAG-OX 400) 400 mg tablet Take 1 Tablet (400 mg) by mouth once daily. 0 1 Active acetaminophen (TYLENOL EXTRA STRGTH) 500 mg tablet Take 1,000 mg by mouth every 6 hours if needed. 1 Active ondansetron (ZOFRAN) 4 mg tablet 3 Active prochlorperazine (COMPAZINE) 5 mg tablet 3 Active LORazepam (ATIVAN) 0.5 mg tab Take 0.5 mg by mouth every 4 hours if needed for Nausea/Vomit ing. 3 Active naproxen-diphenhydr amine 220-25 mg tab Take 1 Tablet by mouth at bedtime if needed. 2 Active prochlorperazine (COMPAZINE) 5 mg tablet Take 5 mg by mouth every 4 hours if needed for Nausea/Vomit ing. 3 Active vitamin B complex (B-COMPLEX VITAMIN) tablet Take 1 Tablet by mouth. 3 Active levothyroxine (SYNTHROID) 125 mcg tabletIndications:A cquired hypothyroidism Take 1 Tablet (125 mcg) by mouth once daily. 90 Tablet 3 3 Active omeprazole (PRILOSEC) 40 mg Delayed-Release capsuleIndications: Swallowing dysfunction TAKE ONE CAPSULE BY MOUTH ONCE EVERY DAY BEFORE A MEAL. 30 Capsule 4 Active FLUoxetine (PROZAC) 10 mg capsuleIndications: Adjustment disorder with mixed anxiety and depressed mood Take 1 Capsule (10 mg) by mouth once daily. 30 Capsule 4 Active FLUoxetine (PROZAC) 10 mg capsuleIndications: Adjustment disorder with mixed anxiety and depressed mood TAKE ONE CAPSULE BY MOUTH ONCE DAILY 30 Capsule 3 10/22/19 24 Discontinued(Reo rder (E-cancel not sent)) omeprazole (PRILOSEC) 40 mg Delayed-Release capsuleIndications: Swallowing dysfunction TAKE ONE CAPSULE BY MOUTH ONCE DAILY BEFORE A MEAL 90 Capsule 2 3 10/22/19 24 Discontinued Active Problems Problem Noted Date Diagnosed Date [...] Encounters Date Type Department Care Team Description 10/22/2023 Telephone [facility] [address] [place] [address] Sara Greer MD Lab (Orders needed for a IFOBT) 10/21/2023 Refill [facility] [address] [place] [address] Sara Greer MD Refill Request (Omeprazole) 10/14/2023 7:00 AM CDT Orders Only [facility] [address] [place] [address] Lab 09/05/2023 Orders Only [facility] Scanner 1 scan: (1-Ord) [place], CT CHEST ABDOMEN PELV W CON, 09/05/2023 from Last 3 Months Immunizations Name Administration Dates Next Due COVID-19 vaccine (Moderna 100mcg/0.5mL) PF, MDV 03/31/2021 Influenza, IIV3 (Age >=3 years) 01/20/2010 [...] 11/09/2022 10:39 AM CDT Plan of Treatment Upcoming Encounters Date Type Department Care Team (Late st Contact Info) Description 11/12/2023 3:20 PM CDT Office Visit [facility] [address] [facility] [place] [address] aSra Greer MD [address] [place] [address] Health Maintenance Due Date Last Done Comments Pneumococcal series for age 6-64 (1 of 2 - PCV) 11/04/1965 HIV for age 15-65 11/04/1974 Zoster (shingles) series for age 50+ (1 of 2) 11/04/1978 COVID-19 vaccine series (2022- season) 2022 03/08/2022, [...] 05/23/19 24, 05/04/2022, 03/29/2021, Additional history exists Fecal testing non-DNA (FIT,FOBT,iFOBT) for age 45-75 10/13/2024 10/14/2023 Lipids for age 45-75 02/18/2025 02/19/2020, 01/05/2019, 03/12/2018, Additional history exists Pap test for age 21-65 02/28/2025 0, 02/29/2020, 01/24/2017, Additional history exists Tdap Completed 11/26/2013 Hepatitis C screening for ag e 18-79 Completed 04/11/2020 Procedures Procedure Name Priority Date/Time Associated Diagnosis Comments OCCULT BLOOD IFOBT STOOL Routine 10/14/2023 3:15 PM CDT Screening for colon cancer SCAN-CT INTERPRETATION 12:00 AM CDT XR MAMMO JACLYN BILAT SCREEN Routine 05/23/2023 10:48 AM GRADES 1 THROUGH 5 TEACHER Breast cancer screening ANTI HCV Routine 04/11/2020 10:25 AM GRADES 1 THROUGH 5 TEACHER Need for hepatitis C screening test AERIAL PHOTOGRAPHER THIN PREP PAP SCREEN IMAGED Routine 02/29/2020 2:40 PM GRADES 1 THROUGH 5 TEACHER Pap smear for cervical cancer screening LIPID PANEL W REFLEX MEASURED LDL Routine 02/19/2020 1:58 PM CDT Screening for lipoid disorders from Last 3 Months or Most Recently Relevant to Health Maintenance Results * OCCULT BLOOD IFOBT STOOL (10/14/2023 3:15 PM CDT) STOOL BLOOD ,IFOBT Negative Negative 10/23/2023 8:49 AM CDT [facility] Stool STOOL SPECIMEN / Unknown Non-Blood / Unknown 10/14/2023 3:15 PM CDT 10/22/2023 3:15 PM CDT Sara Greer MD LABORATORY Performing Organization Address City/State/[facility] Co de Phone Number [facility] [address] [place] [address], * SCAN-CT INTERPRETATION (09/05/2023 12:00 AM CDT) Anatomical Region Laterality Modality Other Scanner OTHER * XR MAMMO JACLYN BILAT SCREEN (05/23/2023 10:48 AM GRADES 1 THROUGH 5 TEACHER) Anatomical Region Laterality Modality BREASTS, Breast Left, Breast Right Bilateral Mammography Impressions 05/23/2023 3:58 PM GRADES 1 THROUGH 5 TEACHER ??There is no radiographic evidence for malignancy. ??Recommend annual mammograms. MAMMOGRAM ASSESSMENT: ??ACR 1 Negative PATIENTS: You will also receive a letter with your examination results in an easy to read format. ??If you have questions about your results, please contact your referring provider. Narrative 05/23/2023 3:58 PM GRADES 1 THROUGH 5 TEACHER For Patients: As a result of the Cures Act, medical imaging exams and procedure reports are released immediately into your electronic medical record. You may view this report before your referring provider. If you have questions, please contact your health care provider. XR MAMMO JACLYN BILAT SCREEN [[id number]] CLINICAL HISTORY: ??This is an asymptomatic 62 y.o. patient. INDICATION FOR EXAM: Mammogram Screening. TECHNIQUE: CC & MLO views were obtained. ??This study was evaluated with the assistance of Computer-Aided Detection. Breast Tomosynthesis was used in interpretation. COMPARISON FILM: Yes [facility]04[facility]22 [facility] FINDINGS: ??The breasts are heterogeneously dense, which may obscure small masses. There are no dominant masses, suspicious micro calcifications or areas of architectural distortion. Sara Greer MD MAMMO * ANTI HCV (04/11/2020 10:25 AM GRADES 1 THROUGH 5 TEACHER) Pathologist [facility] HEPATITIS C ANTIBODY Non-React christopher Non-React christopher 04/11/2020 6:09 PM GRADES 1 THROUGH 5 TEACHER [facility]-LOU TRAL LABORATORY Comment:Antibodies to HCV no t detected; does not exclude the possibility of exposure to HCV. Blood BLOOD SPECIMEN / Unknown Butterfly / Unknown 04/11/2020 10:25 AM GRADES 1 THROUGH 5 TEACHER 04/11/2020 10:28 AM GRADES 1 THROUGH 5 TEACHER Sara Greer MD SEND OUTS [facility]-CEN[facility]AL LABORATORY [address] [place] [address], * AERIAL PHOTOGRAPHER THIN PREP PAP SCREEN IMAGED (02/29/2020 2:40 PM GRADES 1 THROUGH 5 TEACHER) Case Report Gynecologic Cytology Report ? Case: [id number] ? Authorizing Provider: ??Sara Greer ? Collected: ? 02/29/2020 1440 ? MD Afia ? [facility] Received: ?02/29/2020 1526 ? Clinic ? First Screen: ?Renetta Pineda ? Specimen: ?AERIAL PHOTOGRAPHER ThinPrep Vial Screening, Cervical ? 03/08/2020 12:46 PM GRADES 1 THROUGH 5 TEACHER [facility] INTERPRETATION/ RESULT NEGATIVE FOR INTRAEPITHELIAL LESION OR MALIGNANCY (NIL) (none) 03/08/2020 12:46 PM GRADES 1 THROUGH 5 TEACHER [facility] [employer] [facility] ENTR[facility] LABORAT[facility] IMEN ADEQUACY Satisfactory for evaluation No endocervical component seen 03/08/2020 12:46 PM GRADES 1 THROUGH 5 TEACHER [facility] [employer] [facility] HPV REQUEST HPV and PAP 03/08/2020 12:46 PM GRADES 1 THROUGH 5 TEACHER [facility] [employer] [facility] EN[facility] Date of LMP N/A 03/08/2020 12:46 PM GRADES 1 THROUGH 5 TEACHER [facility] [employer] [facility] EN[facility] LAB[facility] Last Pap Date 01/24/17 03/08/2020 12:46 PM GRADES 1 THROUGH 5 TEACHER [facility] ENTRAL LABORATORY Last Pap Result NIL 0 12:46 PM GRADES 1 THROUGH 5 TEACHER [facility] [employer] [facility] EN[facility]AL LAB[facility] Abnormal Pap or [place] Bx in last 5 years No 03/08/2020 12:46 PM GRADES 1 THROUGH 5 TEACHER [facility] [employer] [facility] EN[facility]AL LAB[facility] Menstrual Status Postmenopausal 03/08/2020 12:46 PM GRADES 1 THROUGH 5 TEACHER [facility] [employer] [facility] EN[facility]AL LABOR[facility]ORY [place] Bx Done Today No 03/08/2020 12:46 PM GRADES 1 THROUGH 5 TEACHER [facility] [employer] [facility] EN[facility] LAB[facility] Additional Information None given 03/08/2020 12:46 PM GRADES 1 THROUGH 5 TEACHER [facility] [employer] [facility] EN[facility]AL LABOR[facility] Comment: Cytology is screened at [facility] Laboratory - [address], [place] [address] and [facility] - [address] [place] [address] and [facility] - [address] [place] [address] Interpreted at [facility] - [address], [place] [address] Automated Review Successful 03/08/2020 12:46 PM GRADES 1 THROUGH 5 TEACHER [facility] ENTRMT LABORATORY Comment:Specimen processed s uccessfully by automated segment assembler device, ThinPrep Imaging System, [employer] ANCILLARY TESTING AERIAL PHOTOGRAPHER HPV Ordered, Please see separate report 03/08/2020 12:46 PM GRADES 1 THROUGH 5 TEACHER [facility] ENTRMT LABORATORY Note The pap test is a screening technique, not a diagnostic procedure. It is used primarily to screen for squamous cancers and precursor lesions. Published studies have shown that it is subject to both false negative and false positive results. The pap test should not be used as the sole means to diagnose or exclude pre-malignant and malignant lesions. 03/08/2020 12:46 PM GRADES 1 THROUGH 5 TEACHER [facility] LABORAT[facility]-C ENTRAL LABORATORY Other (Cervical) Non-Blood / Unknown 02/29/2020 2:40 PM GRADES 1 THROUGH 5 TEACHER 02/29/2020 3:26 PM GRADES 1 THROUGH 5 TEACHER Sara Greer MD PATHOLOGY/ CYTOLOGY Performing Organization Address City/[facility]/ZIP Co de Phone Number [facility] [address] [place] [address], [place] * (ABNORMAL) LIPID PANEL W REFLEX MEASURED LDL (02/19/2020 1:58 PM CDT) CHOLESTEROL,TOTAL 223(H) 100 - 199 mg/dL 02/19/2020 9:33 PM CDT [facility] TRAL LABORATORY TRIGLYCERIDES 128 <150 mg/dL 02/19/2020 9:33 PM CDT [facility] TR[facility] LABORATORY HDL CHOLESTEROL 65 >40 mg/dL 0 9:33 PM CDT [facility] NON-HDL CHOLESTEROL 158(H) <145 mg/dl 02/19/2020 9:33 PM CDT [facility] CHOL/HDL RATIO 3.43 <4.50 02/19/2020 9:33 PM CDT [facility] LDL CHOLESTEROL 132(H) <=130 mg/dL 02/19/2020 9:33 PM CDT [facility] TRAL LABORATORY PROVIDER ORDERED STATUS RANDOM 02/19/2020 9:33 PM CDT [facility] Blood BLOOD SPECIMEN / Unknown Butterfly / Unknown 02/19/2020 1:58 PM CDT 02/19/2020 1:58 PM CDT Sara Greer MD CHEMISTRY [facility] [address] [place] [id number], [place] from Last 3 Months or Most Recently Relevant to Health Maintenance Care Teams Account Service Associate Relationship Specialty Start Date End Date Sara Greer MD [address] [place] [address] PCP - General 08/11/05 Deon Mackay MD [address] [place] [address] Orthopedics Surgery - Orthopedics 09/19/17
--- NOTE | 2023-10-25 09:00 | PE_ITS ---
[facility] [address] [facility] [address] Phone:?[phone] Fax:?[phone] Referring Physician Information: Eolina Alarcon M.D. [address] [facility] [address] Phone:?[phone] Fax:?[phone] Patient:Marielena Ramirez D.O.B:?1960 Sex:?Female Phone:?[phone] [facility] MRN:?[id number] Exam Date:?10/25/2023 EXAM: PET/CT EYES TO THIGHS, CANCER RESTAGING CLINICAL INFORMATION: Fallopian tube carcinoma, restaging. TECHNICAL INFORMATION: Helical acquisition of data was obtained from the orbits to the upper thighs with reconstruction of 3.75 mm thick images at 3.[address] data was used for attenuation correction. PET scanning was performed through the same anatomic range 63 minutes following administration of 10.99 mCi of 18-FDG delivered intravenously. The patient's glucose at the time of the injection was 100 mg/dL. PET, CT and PET/CT fusion images are interpreted using a computer viewing workstation. PET, CT and PET/CT fusion images were archived and saved in the patient's permanent medical record. COMPARISON: CT CAP from 09/05/2023, PET-CT from 06/20/2023 and prior studies. INTERPRETATION: Head and Neck: There are no abnormal hypermetabolic foci within the head or neck. There is physiologic uptake in the intracranial soft tissues. No cervical or supraclavicular lymphadenopathy at this time in terms of size, morphology, or metabolic rate. (The hypermetabolic subcentimeter left cervical and left supraclavicular nodes seen on the prior PET-CT are no longer visible.) Chest: Left retrocrural lymph node (Se 2 Im 114) measures 1.0 x 0.8 cm with a maximum SUV of 7.8, newly distinct. There are no other abnormal hypermetabolic foci within the chest. Background mediastinal blood pool uptake has a maximum SUV of 2.7. No lung nodules or masses detected on this free-breathing exam. No lymphadenopathy detected. Abdomen and Pelvis: Precaval lymph node (Se 2 Im 163) measures 1.2 x 0.8 cm with maximum SUV of 5.92. Aortic bifurcation noted (Se 2 Im 169) measures 1.2 x 1.1 cm with a maximum SUV of 10.0. These nodes are stable in terms of size; prior SUV max was 15.01. There are no other abnormal hypermetabolic foci within the abdomen or pelvis. Background hepatic parenchymal uptake has a maximum SUV of 4.0. There is physiologic excretion of radiotracer in the urine and bowel. Skeleton, Musculature, and Integument: There is newly increased FDG uptake within the left lateral elements of the C4 vertebrae (Se 2 Im 37, SUVmax = 6.83), but without distinct underlying osteoblastic or osteolytic lesions. Multilevel disc degeneration redemonstrated. No other abnormal hypermetabolic foci within the skeleton. No wiley osteoblastic or osteolytic disease. CONCLUSION: 1. When compared to the PET-CT from May 2023, there is a newly hypermetabolic left retrocrural lymph node and a few stable hypermetabolic nodes in the retroperitoneum. (All of the aforementioned nodes are nonenlarged but, given their increased FDG uptake, likely malignant.) 2. New hypermetabolism in the left lateral elements of C4 has no associated osteoblastic or osteolytic lesion and likely reflects routine degenerative change. Recommend close attention on routine surveillance. 3. The hypermetabolic subcentimeter left cervical and left supraclavicular nodes seen on the prior PET-CT are no longer visible, consistent with response to interval therapy. Electronically signed on 10/28/2023 11:01:00 AM by Kirk Kunz M.D.
== END 2023-10-25 08:17 | disposition home or self-care (01) ==
LOC: RAD 08:16
PROVIDERS: PCP Family Medicine; Visit Provider Internal Medicine Hematology & Oncology
DX: C57.00 Malignant neoplasm of unspecified fallopian tube (principal)
CPT/HCPCS: 78815; A9552

== ENCOUNTER 2023-10-25 11:56 | Outpatient (REF) | payer OTHER, SELFPAY ==
--- OUTSIDE RECORDS SUMMARY | 2023-10-25 11:59 | XMS_ITS | Encounter Summary ---
Author Organization [facility] Address [address] [place] [address] Care Team Providers Care Lemon Grower Name Role Phone Elsewhere, Pcp Primary Care Provider Unavailabl e Encounter Details Date Type Department Care Team (Late st Contact Info) Description 07/19/2023 Documentation Department of Radiation Oncology in [place], [place] [address] [place] [address] Sophia Kemp M.D. [address] [place] [address] Social History Tobacco Use Types Packs/Day Years [...] often do you attend chur ch or spiritism services? Patient declined 05/20/2020 Do you belong to any clubs o r organizations such as anabaptist groups, unions, fraternal or athletic groups, or [...] drinks on one occasion? Never 05/20/2020 [facility] of Occupat ional Health - [...] Sex Assigned at Female 06/28/2023 7:51 PM CHANGE PERSON Gender Identity Female 06/28/2023 7:52 PM CHANGE PERSON Sexual Orientation Straight 06/28/2023 7: 52 PM CHANGE PERSON documented as of this encounter Miscellaneous [...] (cGy) First Treatment Last Treatment Elapsed Days [id number] 5 / 5 600 3000 3000 07/09/2023 07/19/2023 10 [id number] 5 / 5 600 3000 3000 07/09/2023 [...] Tamica Ramos R.N., 07/25/2023 4:06 PM CDT [facility] [address] [place] [address] documented in this encounter Plan of Treatment Not on file documented as of this encounter Visit Diagnoses Diagnosis 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
--- OUTSIDE RECORDS SUMMARY | 2023-10-25 11:59 | XMS_ITS | Encounter Summary ---
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 [address] [place] [address] T Rad[facility] at [place] [address] [place] [phone] Referral ID Status Reason Start Date Expiration Date Visits Re quested Visits Authorized [id number] Closed 07/08/2023 06/26/2024 5 5 Encounter Details Date Type Department Care Team (Latest Contact Info) Description 07/19/2023 1:14 PM CDT - 07/19/2023 11:59 PM CDT Hospital Encounter Department of Radiation Oncology in [address] [phone] Sophia Kemp M.D. [address] [place] [phone] Discharge Disposition: Home or Self Care Social [...] often do you attend chur ch or muslim services? Patient declined 05/20/2020 Do you belong to any clubs o r organizations such as muslim groups, unions, fraternal or athletic groups, or [...] Sex Assigned at Female 06/28/2023 7:51 PM WAIVER ANALYST Gender Identity Female 06/28/2023 7:52 PM WAIVER ANALYST Sexual Orientation Straight 06/28/2023 7: 52 PM WAIVER ANALYST documented as of this encounter Medications at [...] taking ibuprofen for surgical pain 01/22/2021 omega 8-moe-cac-fish oil 1,000 mg (120 mg-180 mg) capsule [...] on filedocumented in this encounter Care Teams Punchboard Assembler Relationship Specialty Start Date End Date Elsewhere, Pcp PCP - General Family Medicine 01/20/21 documented as of this encounter
--- OUTSIDE RECORDS SUMMARY | 2023-10-25 11:59 | XMS_ITS | Encounter Summary ---
Author Organization [facility] Address [address] [place] [address] Care Team Providers Care Frame Bander Name Role Phone Elsewhere, Pcp Primary Care Provider Unavailabl e Encounter Details Date Type Department Care Team (Late st Contact Info) Description 07/24/2023 Clinical Communication Department of Radiation Oncology in [place], [place] [address] [place] [address] Sophia Kemp M.D. [address] [place] [address] Social History Tobacco Use Types Packs/Day Years [...] often do you attend chur ch or christianity services? Patient declined 05/20/2020 Do you belong to any clubs o r organizations such as shinto groups, unions, fraternal or athletic groups, or [...] drinks on one occasion? Never 05/20/2020 [facility] of Occupat ional Health - Occupational [...] Sex Assigned at Female 06/28/2023 7:51 PM OFFICE SERVICES REPRESENTATIVE Gender Identity Female 06/28/2023 7:52 PM OFFICE SERVICES REPRESENTATIVE Sexual Orientation Straight 06/28/2023 7: 52 PM OFFICE SERVICES REPRESENTATIVE documented as of this encounter Miscellaneous Notes [...] benefit. We discussed the use of scheduled rzer-onx-ankiwyx pain medications forfirst-line pain management. She denies [...] She would like a call back at [phone]. documented in this encounter Plan of Treatment Not on file documented as of this encounter Visit Diagnoses Not on filedocumented in this encounter Care Teams Frame Bander Relationship Specialty Start Date End Date Elsewhere, Pcp PCP - General Family Medicine 01/20/21 documented as of this encounter
--- OUTSIDE RECORDS SUMMARY | 2023-10-25 11:59 | XMS_ITS | Encounter Summary ---
Author Organization [facility] Address [address] [place] [address] Care Team Providers Care Spice Room Worker Name Role Phone Elsewhere, Pcp Primary Care Provider Unavailabl e Encounter Details Date Type Department Care Team (Late st Contact Info) Description 07/24/2023 Clinical Communication Department of Radiation Oncology in [place], [place] [address] [place] [address] Sophia Kemp M.D. [address] [place] [address] Social History Tobacco Use Types Packs/Day Years [...] often do you attend chur ch or sikh services? Patient declined 05/20/2020 Do you belong to any clubs o r organizations such as buddhism groups, unions, fraternal or athletic groups, or [...] on one occasion? Never 05/20/2020 [facility] of Occupat ional [facility] - Occupational Stress Questionnaire Answer [...] Sex Assigned at Female 06/28/2023 7:51 PM [employer] Gender Identity Female 06/28/2023 7:52 PM [employer] Sexual Orientation Straight 06/28/2023 7: 52 PM [employer] documented as of this encounter Miscellaneous Notes * Telephone Encounter - Hyacinth Garrett - 07/24/2023 2:08 PM CDT Other Reason for Call Caller: Family Fare Relationships to patient: Railway Switchman Reason for call: Pharmacy called and they are unable to fill the prescription for this patients mouthwash as they are not a compounding pharmacy. documented in this encounter Plan of Treatment Not on file documented as of this encounter Visit Diagnoses Not on filedocumented in this encounter Care Teams Spice Room Worker Relationship Specialty Start Date End Date Elsewhere, Pcp PCP - General Family Medicine 01/20/21 documented as of this encounter
--- OUTSIDE RECORDS SUMMARY | 2023-10-25 11:59 | XMS_ITS | Referral Summary ---
Author Organization [facility] Address [address] [place] [address] Care Team Providers Care Shaker Flatwork Name Role Phone Elsewhere, Pcp Primary Care Provider Unavailabl e Source Comments Patient records contain information from all sites at [facility]. For routine questions regarding patient records, call [phone] during business hours, M-F 8:00 AM - 5:00 PM Central Time. Record requests for emergency care only can be directed to [phone] at any time.[facility] Allergies Active Allergy Reactions Criticality Noted [...] every morning before breakfast. 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 Patient declined 05/20/2020 Do you belong [...] more drinks on one occasion? Never 05/20/2020 [facility] of Occupat ional Health - Occupational [...] Sex Assigned at Female 06/28/2023 7:51 PM CUSTODIAL OFFICER Gender Identity Female 06/28/2023 7:52 PM CUSTODIAL OFFICER Sexual Orientation Straight 06/28/2023 7: 52 PM CUSTODIAL OFFICER Last Filed Vital Signs Vital Sign [...] Body Mass Index 42.76 03/01/2021 11:13 AM CUSTODIAL OFFICER Plan of Treatment Not on file Medical Devices Implanted Type Area Photographic Laboratory Supervisor Device Identifier Shelf Expiration Date Model / Serial / Lot Knee Implant Knee Implant Bilateral: Abdomen Procedures Procedure Name Priority Date/Time Associated Diagnosis Comments BI BREAST SCREENING BILATERAL WITH TOMOSYNTHESIS RAD - Routine (most inpatients and all outpatients) 05/23/2023 10:48 AM CUSTODIAL OFFICER EXTI THYROID-STIMULATING HORMONE-SENSITIVE (S-TSH), S Routine [...] 01/29/2021 7:34 AM CDT DTL eGFR-Black/Afri can Burundian >90 >=60 mL/min/BSA 01/29/2021 7:34 AM CDT DTL Comment: ----ADDITIONAL INFORMATION---- Estimated GFR calculated using the 2009 CKD_EPI creatinine equation. eGFR Non-Black/Afric an Burundian >90 >=60 mL/min/BSA 01/29/2021 7:34 AM CDT [...] Turner M.D., M.S. LAB BLOOD ADD -ON [facility] [address] [place] [address], [facility] [address] [place] [address] from Last 3 Months or Most Recently Relevant to Health Maintenance Advance Directives For more information, please contact: [phone] * Full Code (Latest Code Status on [...] Answer Comments Full Code: Discussed Care Teams Shaker Flatwork Relationship Specialty Start Date End Date Elsewhere, Pcp PCP - General Family Medicine 01/20/21
--- OUTSIDE RECORDS SUMMARY | 2023-10-25 11:59 | XMS_ITS | Encounter Summary ---
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 [address] [place] [address] T Radiation Oncology at [place] [address] [place] [phone] Referral ID Status Reason Start Date Expiration Date Visits Re quested Visits Authorized [id number] Closed 07/08/2023 06/26/2024 5 5 Encounter Details Date Type Department Care Team (Latest Contact Info) Description 07/17/2023 1:46 PM CDT - 07/17/2023 11:59 PM CDT Hospital Encounter Department of Radiation Oncology in [address] [phone] Sophia Kemp M.D. [address] [place] [phone] Discharge Disposition: Home or Self Care Social [...] Sex Assigned at Female 06/28/2023 7:51 PM COCOA BUTTER FILTER OPERATOR Gender Identity Female 06/28/2023 7:52 PM COCOA BUTTER FILTER OPERATOR Sexual Orientation Straight 06/28/2023 7: 52 PM COCOA BUTTER FILTER OPERATOR documented as of this encounter Medications [...] taking ibuprofen for surgical pain 01/22/2021 omega 3-zpr-iff-fish oil 1,000 mg (120 mg-180 mg) capsule [...] on filedocumented in this encounter Care Teams Dbas Relationship Specialty Start Date End Date Elsewhere, Pcp PCP - General Family Medicine 01/20/21 documented as of this encounter
--- OUTSIDE RECORDS SUMMARY | 2023-10-25 11:59 | XMS_ITS ---
Author Organization [facility] Address [address] [place] [address] Care Team Providers Care Geophysical Laboratory Supervisor Name Role Phone Unavailable Unavailable Unavailable Surgery Details Not on file Complications Check Surgery Details section. Procedure Estimated Blood Loss Check Surgery Details section. Procedure Findings Check Surgery Details section. Procedure Specimens Taken Check Surgery Details section.
--- OUTSIDE RECORDS SUMMARY | 2023-10-25 11:59 | XMS_ITS ---
Author Organization [facility] Address [address] [place] [address] Care Team Providers Care Manager Servicing Name Role Phone Elsewhere, Pcp Primary Care Provider Unavailabl e Active Problems Problem Noted Date Diagnosed Date Diarrhea 01/28/2021 Malignant Neoplasm Of Fallopian Tube Right 01/20 Cancer Staging:Pathologic stage from 01/20/2021:FIGO Stage IIA, calculated as Stage Unknown(pT1c3, pNX, cM0) - Signed by Danette Bowser M.D. on 01/26/2021 Mass Adnexal 12/23/2020 Overview: Added automatically from request for surgery [id number] Malignant Neoplasm Of Breast Upper Inner Quadrant Female Left 04/11/2020 Cancer Staging:Clinical stage from 03/22/2020:Stage IB(cT2, cN0, cM0, G2, ER+, [place]+, HER2-) - Unsigned Esophagitis Eosinophilic 01/12/2019 Overview: [...] Treated Prescribed Fraction Dose Prescribed Total Dose [id number] 07/19/2023 10 5 of 5 600 cGy 3,000 cGy [id number] 07/19/2023 10 5 of 5 600 cGy 3,000 cGy F1 Lt Breast 06/07/2020 6 5 of 5 520 cGy 2,600 c Gy Reference Point Last Treated On Elapsed Days Session Dose Total Dose [id number] 07/19/2023 10 600 cGy 3,000 cGy [id number] 07/19/2023 10 600 cGy 3,000 cGy [id number] 06/07/2020 6 520 cGy 2,600 cGy
--- OUTSIDE RECORDS SUMMARY | 2023-10-25 11:59 | XMS_ITS | Clinical Summary ---
Author Organization [facility] Address [address] [place] [address] Care Team Providers Care Devops Consultant Name Role Phone Elsewhere, Pcp Primary Care Provider Unavailabl e Source Comments Patient records contain information from all sites at [facility]. For routine questions regarding patient records, call [phone] during business hours, M-F 8:00 AM - 5:00 PM Central Time. Record requests for emergency care only can be directed to [phone] at any time.[facility] Allergies Active Allergy Reactions Criticality Noted Date [...] every morning before breakfast. 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 Patient declined 05/20/2020 Do you belong to any clubs o r organizations such as holiness groups, unions, fraternal or athletic groups, or [...] more drinks on one occasion? Never 05/20/2020 [facility] of Occupat ional Health - Occupational Stress [...] Sex Assigned at Female 06/28/2023 7:51 PM COMPUTER SYSTEMS SUPPORT SPECIALIST Gender Identity Female 06/28/2023 7:52 PM COMPUTER SYSTEMS SUPPORT SPECIALIST Sexual Orientation Straight 06/28/2023 7: 52 PM COMPUTER SYSTEMS SUPPORT SPECIALIST Last Filed Vital Signs Vital Sign Reading [...] Body Mass Index 42.76 03/01/2021 11:13 AM COMPUTER SYSTEMS SUPPORT SPECIALIST Plan of Treatment Health Maintenance Due Date [...] this topic Medical Devices Implanted Type Area Speech And Hearing Clinic Director Device Identifier Shelf Expiration Date Model / Serial / Lot Knee Implant Knee Implant Bilateral: Abdomen Procedures Procedure Name Priority Date/Time Associated Diagnosis Comments BI BREAST SCREENING BILATERAL WITH TOMOSYNTHESIS RAD - Routine (most inpatients and all outpatients) 05/23/2023 10:48 AM COMPUTER SYSTEMS SUPPORT SPECIALIST EXTI THYROID-STIMULATING HORMONE-SENSITIVE (S-TSH), S Routine 08/23/2021 [...] 01/29/2021 7:34 AM CDT DTL eGFR-Black/Afri can Paraguayan >90 >=60 mL/min/BSA 01/29/2021 7:34 AM CDT DTL Comment: ----ADDITIONAL INFORMATION---- Estimated GFR calculated using the 2009 CKD_EPI creatinine equation. eGFR Non-Black/Afric an Paraguayan >90 >=60 mL/min/BSA 01/29/2021 7:34 AM CDT [...] Turner M.D., M.S. LAB BLOOD ADD -ON [facility] [address] [place] [address], [email or web address] DTL [facility] [address] [place] [address] from Last 3 Months or Most Recently Relevant to Health Maintenance Advance Directives For more information, please contact: [phone] * Full Code (Latest Code Status on [...] Answer Comments Full Code: Discussed Care Teams Devops Consultant Relationship Specialty Start Date End Date Elsewhere, Pcp PCP - General Family Medicine 01/20/21
--- OUTSIDE RECORDS SUMMARY | 2023-10-25 12:00 | XMS_ITS | Clinical Summary ---
Author Organization [facility] Address [place], [place] [address] Care Team Providers Care Sanitary Engineering Teacher Name Role Phone Sara Greer MD Primary Care Prov ider Deon Mackay MD Unavailable [phone] Allergies Active Allergy Reactions Criticality Noted Date Comments Dust Mites Runny Nose 09/23/2012 found at allergy test Sulfa (Sulfonamide Antibiotics) Nausea And Vomiting Low 12/17/2006 nausea Medications Medication Sig Dispensed Refills Start Date End Date Status ONE-A-DAY WOMENS FORMULA 27 MG-0.4 MG TAB take 1 tablet by oral route once daily with food 0 8 Active Otzkb-4-DTS-EPA-Fis h Oil 1,000 mg (120 mg-180 mg) [...] Type Department Care Team Description 10/22/2023 Telephone [facility] [[email or web address] [address] [place] [address] Sara Greer MD Lab (Orders needed for a IFOBT) 10/21/2023 Refill [facility] [[email or web address]] [address] [place] [address] Sara Greer MD Refill Request (Omeprazole) 10/14/2023 7:00 AM CDT Orders Only [facility] [address] [place] [address] Lab 09/05/2023 Orders Only [facility] Scanner 1 scan: (1-Ord) [place], CT CHEST ABDOMEN PELV W CON, 09/05/2023 [...] Description 11/12/2023 3:20 PM CDT Office Visit [facility] [[email or web address]] [address] [place] [place] [address] Sara Greer MD [address] [place] [address] Health Maintenance Due Date Last Done Comments [...] JACLYN BILAT SCREEN Routine 05/23/2023 10:48 AM [facility] Breast cancer screening ANTI HCV Routine 04/11/2020 10:25 AM [facility] Need for hepatitis C screening test ENROLLMENT ADVISOR THIN PREP PAP SCREEN IMAGED Routine 02/29/2020 2:40 PM [facility] Pap smear for cervical cancer screening LIPID PANEL W REFLEX MEASURED LDL Routine 02/19/2020 1:58 PM CDT Screening for lipoid disorders from Last 3 Months or Most Recently Relevant to Health Maintenance Results * OCCULT BLOOD IFOBT STOOL (10/14/2023 3:15 PM CDT) STOOL BLOOD ,IFOBT Negative Negative 10/23/2023 8:49 AM CDT [facility] [place]ool STOOL SPECIMEN / Unknown Non-Blood / Unknown 10/14/2023 3:15 PM CDT 10/22/2023 3:15 PM CDT Sara Greer MD LABORATORY Performing Organization Address City/State/[facility] Co de Phone Number [facility] [place] [address] [place] [address], * SCAN-CT INTERPRETATION (09/05/2023 12:00 AM CDT) Anatomical Region Laterality Modality Other Scanner OTHER * XR MAMMO JACLYN BILAT SCREEN (05/23/2023 10:48 AM [facility]) Anatomical Region Laterality Modality BREASTS, Breast Left, Breast Right Bilateral Mammography Impressions 05/23/2023 3:58 PM [facility] ??There is no radiographic evidence for malignancy. ??Recommend annual mammograms. MAMMOGRAM ASSESSMENT: ??ACR 1 Negative PATIENTS: You will also receive a letter with your examination results in an easy to read format. ??If you have questions about your results, please contact your referring provider. Narrative 05/23/2023 3:58 PM [place] For Patients: As a result of the Cures Act, medical imaging exams and procedure reports are released immediately into your electronic medical record. You may view this report before your referring provider. If you have questions, please contact your health care provider. XR MAMMO JACLYN BILAT SCREEN [[id number]] CLINICAL HISTORY: ??This is an asymptomatic 62 y.o. patient. INDICATION FOR EXAM: Mammogram Screening. TECHNIQUE: CC & MLO views were obtained. ??This study was evaluated with the assistance of Computer-Aided Detection. Breast Tomosynthesis was used in interpretation. COMPARISON FILM: [facility] FINDINGS: ??The breasts are heterogeneously dense, which may obscure small masses. There are no dominant masses, suspicious micro calcifications or areas of architectural distortion. Sara Greer MD MAMMO * ANTI HCV (04/11/2020 10:25 AM [facility]) Pathologist [facility] HEPATITIS C ANTIBODY Non-React christopher Non-React christopher 04/11/2020 6:09 PM [place] [facility] LABORATORY-LOU TRAL LABORATORY Comment:Antibodies to HCV no t detected; does not exclude the possibility of exposure to HCV. Blood BLOOD SPECIMEN / Unknown Butterfly / Unknown 04/11/2020 10:25 AM [facility] 04/11/2020 10:28 AM [facility] Sara Greer MD SEND OUTS [facility] LABORATORY-CENTRAL LABORATORY [address] [place] [address], * ENROLLMENT ADVISOR THIN PREP PAP SCREEN IMAGED (02/29/2020 2:40 PM [facility]) Case Report Gynecologic Cytology Report ? Case: [id number] ? Authorizing Provider: ??Sara Greer ? Collected: ? 02/29/2020 1440 ? MD Afia ? [facility] ?? Received: ?02/29/2020 1526 ? Clinic ? First Screen: ?Renetta Pineda ? Specimen: ?ENROLLMENT ADVISOR ThinPrep Vial Screening, Cervical ? 03/08/2020 12:46 PM [facility] INTERPRETATION/ RESULT NEGATIVE FOR INTRAEPITHELIAL LESION OR MALIGNANCY (NIL) (none) 03/08/2020 12:46 PM [facility] [employer] [facility] ENTRMS LABORATORY IMEN ADEQUACY Satisfactory for evaluation No endocervical component seen 03/08/2020 12:46 PM [place] [employer] [facility] HPV REQUEST HPV and PAP 03/08/2020 12:46 PM [facility] [employer] [facility] ENTRAL LABORATORY Date of LMP N/A 03/08/2020 12:46 PM [facility] [employer] [facility] ENTRAL LABORATORY Last Pap Date 01/24/17 03/08/2020 12:46 PM [facility] ENTRAL LABORATORY Last Pap Result NIL 0 12:46 PM [facility] [employer] [facility] ENTRAL LABORATORY Abnormal Pap or [place] Bx in last 5 years No 03/08/2020 12:46 PM [place] [facility] [employer] [facility] ENTRAL LABORATORY Menstrual Status Postmenopausal 03/08/2020 12:46 PM [place] [facility] [employer] [facility] ENTRAL LABORATORY [place] Bx Done Today No 03/08/2020 12:46 PM [place] [facility] [employer] [facility] ENTRMS LABORATORY Additional Information None given 03/08/2020 12:46 PM [place] [facility] [employer] [facility] ENTRAL LABORATORY Comment: Cytology is screened at [facility] Central Laboratory - [address], [place] [address] and [facility] Laboratory - [address] [place] [address] and [facility] - [address] [facility] [place] [address] Interpreted at [facility] - [address], [place] [address] Automated Review Successful 03/08/2020 12:46 PM [place] [facility] ENTRMS LABORATORY Comment:Specimen processed s uccessfully by automated bank examiner device, ThinPrep Imaging System, [employer] ANCILLARY TESTING ENROLLMENT ADVISOR HPV Ordered, Please see separate report 03/08/2020 12:46 PM [place] [facility] EN[facility] LAB[facility] Note The pap test is a screening technique, not a diagnostic procedure. It is used primarily to screen for squamous cancers and precursor lesions. Published studies have shown that it is subject to both false negative and false positive results. The pap test should not be used as the sole means to diagnose or exclude pre-malignant and malignant lesions. 03/08/2020 12:46 PM [place] [facility] LABORATORY-C ENTRAL LABORATORY Other (Cervical) Non-Blood / Unknown 02/29/2020 2:40 PM [facility] 02/29/2020 3:26 PM [place] Sara Greer MD PATHOLOGY/ CYTOLOGY Performing Organization Address City/[facility]/ZIP Co de Phone Number [facility] [address] [place] [address], [place] * (ABNORMAL) LIPID PANEL W REFLEX MEASURED LDL (02/19/2020 1:58 PM CDT) CHOLESTEROL,TOTAL 223(H) 100 - 199 mg/dL 02/19/2020 9:33 PM CDT [facility] LABORATORY-[facility] TRAL LABORATORY TRIGLYCERIDES 128 <150 mg/dL 02/19/2020 9:33 PM CDT [facility] TRAL LABORATORY HDL CHOLESTEROL 65 >40 mg/dL 0 9:33 PM CDT [facility] TRAL LABORATORY NON-HDL CHOLESTEROL 158(H) <145 mg/dl 02/19/2020 9:33 PM CDT [facility] TRAL LABORATORY CHOL/HDL RATIO 3.43 <4.50 02/19/2020 9:33 PM CDT [facility] TRAL LABORATORY LDL CHOLESTEROL 132(H) <=130 mg/dL 02/19/2020 9:33 PM CDT [facility] TRAL LABORATORY PROVIDER ORDERED STATUS RANDOM 02/19/2020 9:33 PM CDT [facility] TRAL LABORATORY Blood BLOOD SPECIMEN / Unknown Butterfly / Unknown 02/19/2020 1:58 PM CDT 02/19/2020 1:58 PM CDT Sara Greer MD CHEMISTRY [facility] [address] [place] [id number], [place] from Last 3 Months or Most Recently Relevant to Health Maintenance Care Teams Sanitary Engineering Teacher Relationship Specialty Start Date End Date Sara Greer MD [address] [place] [address] PCP - General 08/11/05 Deon Mackay MD [address] [place] [address] Orthopedics Surgery - Orthopedics 09/19/17
[2023-10-25 15:44] LABS: Cholesterol* 238 mg/dL (90-199)
[2023-10-25 15:45] LABS: HDL Cholesterol* 83 mg/dL (>=50); LDL Cholesterol Calculated 135 mg/dL (<100); Triglycerides* 98 mg/dL (40-149)
== END 2023-10-25 11:57 | disposition home or self-care (01) ==
LOC: NPINS 11:56
PROVIDERS: PCP Family Medicine; Visit Provider Family Medicine
DX: E03.9 Hypothyroidism, unspecified (principal); Z13.6 Encounter for screening for cardiovascular disorders
CPT/HCPCS: 80061; 84443

== ENCOUNTER 2023-11-19 14:27 | Outpatient (CLI) | payer OTHER, SELFPAY ==
--- OUTSIDE RECORDS SUMMARY | 2023-11-19 14:32 | XMS_ITS | Encounter Summary ---
Author Organization [facility] Address [address] [place] [address] Care Team Providers Care Warp Tester Name Role Phone Elsewhere, Pcp Primary Care Provider Unavailabl e Reason for Referral * Outpatient (Routine) - Authorized Specialty Diagnoses / Procedures Referred By Contac t Referred To Contact Radiation Oncology Sophia Kemp M.D. [address] [place] [phone] [facility] Region Referral ID Status Reason Start Date Expiration Date V isits Requested Visits Authorized [id number] Authorized 11/07/2023 05/08/2025 1 1 Reason for Visit * Outpatient (Routine) - Authorized Specialty Diagnoses / Procedures Referred By Contac t Referred To Contact Radiation Oncology Sophia Kemp M.D. [address] [place] [phone] [facility] Region Referral ID Status Reason Start Date Expiration Date V isits Requested Visits Authorized [id number] Authorized 11/07/2023 05/08/2025 1 1 Encounter Details Date Type Department Care Team (Latest Contact Info) Description 11/11/2023 11:14 AM CDT Hospital Encounter Department of Radiation Oncology in [place], [place] [address] [place] [phone] Sophia Kemp M.D. [address] [place] [phone] Mara Wylie R.N. [address] [place] [phone] Secondary Malignant Neoplasm Lymph Node (HCC) Social History Tobacco Use Types Packs/Day [...] How often do you attend chur or yarsanism services? Patient declined 05/20/2020 Do you belong [...] Sex Assigned at Female 06/28/2023 7:51 PM ASSISTANT TO THE VICE PRESIDENT Gender Identity Female 06/28/2023 7:52 PM ASSISTANT TO THE VICE PRESIDENT Sexual Orientation Straight 06/28/2023 7: 52 PM ASSISTANT TO THE VICE PRESIDENT documented as of this encounter Last Filed Vital Signs Vital Sign Reading Time Taken Comments Blood Pressure - - Pulse - - Temperature - - Respiratory Rate - - Oxygen Saturation - - Inhaled Oxygen Concentration - - Weight 99.1 kg (218 lb 7.6 oz) 11/11/2023 12:21 PM CDT Height - - Body Mass Index 42.89 03/01/2021 11:13 AM ASSISTANT TO THE VICE PRESIDENT documented in this encounter Plan of Treatment Upcoming Encounters Date Type Department Care Team (Late st Contact Info) Description 11/21/2023 2:15 PM CDT Appointment Department of Radiation Oncology in [address] [phone] Sophia Kemp M.D. 200 [place] [address] 11/25/2023 2:15 PM CDT Appointment Department of Radiation Oncology in [place] [address] [place] [address] Sophia Kemp M.D. 200 [place] [address] 11/27/2023 2:15 PM CDT Appointment Department of Radiation Oncology in [place], [place] [address] [place] [phone] Sophia Kemp M.D. [address] [place] [address] 11/27/2023 3:00 PM CDT Appointment Department of Radiation Oncology in [place], [place] [address] [place] [phone] Sophia Kemp M.D. [address] [place] [phone] 11/29/2023 2:15 PM CDT Appointment Department of Radiation Oncology in [address] [phone] Sophia Kemp M.D. 200 [place] [address] Scheduled Referrals Name Type Priority Associated Diagnoses Order Schedule Radiation Oncology nurse visit (clinic) Outpatient Referral Routine Once for 1 Occurrences starting 11/11/2023 until 11/11/2023 documented as of this encounter Visit Diagnoses Diagnosis Secondary Malignant Neoplasm Lymph Node (HCC) documented in this encounter Administered Medications Active Administered Medications - up to 3 most recent administrations Medication Order MAR Action Action Date Dose Rate Site sodium chloride 0.9 % injection 10-20 mL 10-20 mL, intravenous, As needed, line care, Implanted Vascular Access Device (IVAD) Venous Non-Valved, Starting on Sat11/11/23 at 1221, Prior to and following infusion and between multiple consecutive infusions, flush 10 mL to each port/lumen. Given 11/11/2023 12:25 PM CDT 10 mL Given 11/11/2023 12:24 PM CDT 10 mL Inactive Administered Medications - up to 3 most recent administrations Medication Order MAR Action Action Date Dose Rate Site heparin flush 500-1,000 Units 500-1,000 Units, intra-catheter, During hospitalization, line care, Prior to discharge, Starting on Sat11/11/23 at 1221, For 1 dose, Implanted Vascular Access Device (IVAD) Venous Non-Valved: flush 5 mL (500 units) per port/lumen following saline flush prior to discharge. Given 11/11/2023 12:25 PM CDT 500 Units iohexoL 300 mg iodine/mL solution 1-200 mL (Omnipaque) 1-200 mL, intravenous, Once in imaging, contrast, Starting on Sat11/11/23 at 1206, For 1 dose, Intraprocedure (RAD), Administer 1-200 mL, dosing per medication reference document and per protocol. Given 11/11/2023 12:24 PM CDT 140 mL NaCl 0.9 % bolus 1-100 mL 1-100 mL, intravenous, at 1-100 mL/hr, Administer over 1 Hours, Once in imaging, other, Give per medication reference and protocol, Starting on Sat11/11/23 at 1206, For 1 dose, Intraprocedure (RAD) New Bag 11/11/2023 12:24 PM CDT 30 mL 100 mL/hr documented in this encounter Care Teams Warp Tester Relationship Specialty Start Date End Date Elsewhere, Pcp PCP - General Family Medicine 01/20/21 documented as of this encounter
--- OUTSIDE RECORDS SUMMARY | 2023-11-19 14:32 | XMS_ITS | Encounter Summary ---
Author Organization [facility] Address [address] [place] [address] Care Team Providers Care Special Inspector Name Role Phone Elsewhere, Pcp Primary Care Provider Unavailabl e Reason for Referral * Radiation Therapy (Routine) - Closed Specialty Diagnoses / Procedures Referred By Contac t Referred To Contact Diagnoses Secondary Malignant Neoplasm Lymph Node (HCC) Procedures Initial Rad Onc Treatment Planning CT Simulation Sophia Kemp M.D. 200 [place] [address] [facility] Region Referral ID Status Reason Start Date Expiration Date Visits Re quested Visits Authorized [id number] Closed 11/07/2023 11/06/2024 1 1 * MRI/CAT/PET Scan (Routine) - Authorized Specialty Diagnoses / Procedures Referred By Contac t Referred To Contact Radiology Diagnoses Secondary Malignant Neoplasm Bone (HCC) Procedures MR Cervical Spine without and with IV Contrast Sophia Kemp M.D. [address] [place] [address] [facility] Region Referral ID Status Reason Start Date Expiration Date V isits Requested Visits Authorized [id number] Authorized 11/04/2023 11/03/2024 1 1 * Radiation Therapy (Routine) - Authorized Specialty Diagnoses / Procedures Referred By Contac t Referred To Contact Diagnoses Secondary Malignant Neoplasm Bone (HCC) Procedures Management Visit Sophia Kemp M.D. [address] [place] [address] [facility] Region Referral ID Status Reason Start Date Expiration Date V isits Requested Visits Authorized [id number] Authorized 11/04/2023 11/03/2024 10 10 * Radiation Therapy (Routine) - Closed Specialty Diagnoses / Procedures Referred By Sanjuana rios Referred To Contact Diagnoses Secondary Malignant Neoplasm Bone (HCC) Procedures Initial Rad Onc Treatment Planning CT Simulation without IV Contrast Sophia Kemp M.D. [address] [place] [address] [facility] Region Referral ID Status Reason Start Date Expiration Date Visits Re quested Visits Authorized [id number] Closed 11/04/2023 11/03/2024 1 1 * Radiation Therapy (Routine) - Authorized Specialty Diagnoses / Procedures Referred By Sanjuana rios Referred To Contact Diagnoses Secondary Malignant Neoplasm Bone (HCC) Procedures Prior Auth Rad Tx OK STEREOTACTIC BODY RADTN DEL OK IMRT RADIOTHERAPY PLAN SBRT Sophia Kemp M.D. [address] [place] [address] [facility] Radiation Oncology at [address] [phone] Referral ID Status Reason Start Date Expiration Date V isits Requested Visits Authorized [id number] Authorized 11/20/2023 04/21/2024 5 5 Encounter Details Date Type Department Care Team (Late st Contact Info) Description 11/04/2023 Orders Only Department of Radiation Oncology in [address] [phone] Kait Ch APRN, C.N.P., D.N.P. [address] [place] [address] Secondary Malignant Neoplasm Bone (HCC) (Primary Dx); Secondary Malignant Neoplasm Lymph Node (HCC) Social [...] How often do you attend chur or caodaism services? Patient declined 05/20/2020 Do you belong [...] Sex Assigned at Female 06/28/2023 7:51 PM WIRE PRODUCTS INSPECTOR Gender Identity Female 06/28/2023 7:52 PM WIRE PRODUCTS INSPECTOR Sexual Orientation Straight 06/28/2023 7: 52 PM WIRE PRODUCTS INSPECTOR documented as of this encounter Plan of Treatment Upcoming Encounters Date Type Department Care Team (Late st Contact Info) Description 11/21/2023 2:15 PM CDT Appointment Department of Radiation Oncology in [address] [phone] Sophia Kemp M.D. [address] [place] [phone] 11/25/2023 2:15 PM CDT Appointment Department of Radiation Oncology in [address] [phone] Sophia Kemp M.D. [address] [place] [phone] 11/27/2023 2:15 PM CDT Appointment Department of Radiation Oncology in [address] [phone] Sophia Kemp M.D. [address] [place] [phone] 11/27/2023 3:00 PM CDT Appointment Department of Radiation Oncology in [place], [place] [address] [place] [phone] Sophia Kemp M.D. [address] [place] [address] 11/29/2023 2:15 PM CDT Appointment Department of Radiation Oncology in [place], [place] [address] [place] [phone] Sophia Kemp M.D. [address] [place] [address] Pending Results Name Type Priority Associated Diagnoses Date/Time Initial Rad Onc Treatment Planning CT Simulation without IV Contrast Procedural Imaging Routine Secondary Malignant Neoplasm Bone (HCC) 11/11/2023 11:38 AM CDT Scheduled Orders Name Type Priority Associated Diagnoses Order Schedule Prior Auth Rad Tx Radiation Oncology Routine Secondary Malignant Neoplasm Bone (HCC) Ordered: 11/04/2023 Management Visit Radiation Oncology Routine Secondary Malignant Neoplasm Bone (HCC) 10 Occurrences starting 11/04/2023 until 02/03/2025 MR Cervical Spine without and with IV Contrast Imaging RAD - Routine (most inpatients and all outpatients) Secondary Malignant Neoplasm Bone (HCC) Expected: 11/04/2023, Expires: 02/03/2025 documented as of this encounter Results * Initial Rad Onc Treatment Planning CT Simulation (11/11/2023 12:00 PM CDT) Narrative ESPINOZA BOOGIE - 11/11/2023 12:00 PM CDT Tamela Sheikh RTT ? 11/11/2023 12:51 PM Initial Rad Onc Treatment Planning CT Simulation Performed by: Sophia Kemp M.D. Authorized by: Sophia Kemp M.D. ?? Sophia Kemp M.D. 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
--- OUTSIDE RECORDS SUMMARY | 2023-11-19 14:32 | XMS_ITS ---
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 Overview (12/28/2020): EGD 12/2018 EoE, try omeprazole 40 mg Last Assessment & Plan: Life long PROTON PUMP INHIBITOR treatment Other Specified Postprocedural States 04/08/2013 Overview (12/28/2020): Left myringotomy tube, per ENT patient is to keep ear dry and lavage should not be attempted Diverticulitis Of Large Inte avelino Without Perforation Or Abscess Without Bleeding 01/20/2011 Screening Cancer Colon 01/19/2011 Overview (12/28/2020): Colonoscopy 12/2010 normal repeat in 10 years Adjustment Disorder Mixed Reaction 12/17/2006 Hypothyroidism 12/17/2006 Gastroesophageal Reflux Disease NOS 12/17/2006 Pelvic Congestion Syndrome 12/17/2006 Rhinitis Allergic 12/17/2006 Current Oncology Plans No current plan information found. Past Plans No past plan information found. Radiation Treatments * Plan Last Treated On Elapsed Days Fractions Treated Prescribed Fraction Dose Prescribed Total Dose [id number] 11/19/2023 0 1 of 5 600 cGy 3,000 cGy [id number] 11/19/2023 0 1 of 5 600 cGy 3,000 cGy [id number] 07/19/2023 10 5 of 5 600 cGy 3,000 cGy [id number] 07/19/2023 10 5 of 5 600 cGy 3,000 cGy F1 Lt Breast 06/07/2020 6 5 of 5 520 cGy 2,600 c Gy Reference Point Last Treated On Elapsed Days Session Dose Total Dose [id number] 11/19/2023 0 600 cGy 600 cGy [id number] 11/19/2023 0 600 cGy 600 cGy [id number] retrox 07/19/2023 10 600 cGy 3,000 cGy [id number] 07/19/2023 10 600 cGy 3,000 cGy [id number] 06/07/2020 6 520 cGy 2,600 cGy
--- OUTSIDE RECORDS SUMMARY | 2023-11-19 14:32 | XMS_ITS | Encounter Summary ---
Author Organization [facility] Address [address] [place] [id number] Care Team Providers Care Social Services Technician Name Role Phone Elsewhere, Pcp Primary Care Provider Unavailabl e Reason for Referral * Radiation Therapy (Routine) - Closed Specialty Diagnoses / Procedures Referred By Contac t Referred To Contact Diagnoses Secondary Malignant Neoplasm Lymph Node (HCC) Procedures Initial Rad Onc Treatment Planning CT Simulation Sophia Kemp M.D. [address] [place] [address] [facility] Region Referral ID Status Reason Start Date Expiration Date Visits Re quested Visits Authorized [id number] Closed 11/07/2023 11/06/2024 1 1 * Radiation Therapy (Routine) - Closed Specialty Diagnoses / Procedures Referred By Contac t Referred To Contact Diagnoses Secondary Malignant Neoplasm Bone (HCC) Procedures Initial Rad Onc Treatment Planning CT Simulation without IV Contrast Sophia Kemp M.D. [address] [place] [address] [facility] Region Referral ID Status Reason Start Date Expiration Date Visits Re quested Visits Authorized [id number] Closed 11/04/2023 11/03/2024 1 1 Reason for Visit * Radiation Therapy (Routine) - Closed Specialty Diagnoses / Procedures Referred By Contac t Referred To Contact Diagnoses Secondary Malignant Neoplasm Bone (HCC) Procedures Initial Rad Onc Treatment Planning CT Simulation without IV Contrast Sophia Kemp M.D. 200 [place] [address] [facility] Region Referral ID Status Reason Start Date Expiration Date Visits Re quested Visits Authorized [id number] Closed 11/04/2023 11/03/2024 1 1 Encounter Details Date Type Department Care Team (Latest Contact Info) Description 11/11/2023 11:38 AM CDT - 11/11/2023 2:07 PM CDT Hospital Encounter Department of Radiation Oncology in [place], [place] [address] [place] [address] Sophia Kemp M.D. [address] [place] [address] Secondary Malignant Neoplasm Bone (HCC); Secondary Malignant Neoplasm Lymph Node (HCC) Social [...] How often do you attend chur or yazdanism services? Patient declined 05/20/2020 Do you belong [...] more drinks on one occasion? Never 05/20/2020 [facility] - Occupational [...] Sex Assigned at Female 06/28/2023 7:51 PM GENERAL ENGINEER Gender Identity Female 06/28/2023 7:52 PM GENERAL ENGINEER Sexual Orientation Straight 06/28/2023 7: 52 PM GENERAL ENGINEER documented as of this encounter Medications [...] 2 (two) times a day with meals. diphenhydramine-lidocain e 2 %-antacid (mw) Take 10 mL by mouth 4 (four) times a day as needed (for pain). Do not eat or drink for 15 minutes after use. 480 mL 07/24/2023 eucalyptus/peppermint oil (PONARIS NASAL) Administer 1 puff [...] while taking ibuprofen for surgical pain 01/22/2021 nitrofurantoin monohydrate (Macrobid) 100 mg capsule 09/02/2023 omega 8-jun-nkj-fish oil 1,000 mg (120 mg-180 mg) capsule [...] as of this encounter Procedure Notes * Tamela Sheikh, RTT - 11/11/2023 12:00 PM CDTAssociated Order(s): Initial Rad Onc Treatment Planning CT Simulation Pre-Procedure Diagnose(s): Secondary Malignant Neoplasm Lymph Node (HCC) Post-Procedure Diagnose(s): Secondary Malignant Neoplasm Lymph Node (HCC) Initial Rad Onc Treatment Planning CT [...] placed to facilitate marking of isocenter. Area scanned:Chest, Abdomen, and Pelvis Contrast used for the simulation procedure: IV Patient position:head first supine and arms up Custom immobilization: Vac-vilma and Knee Cushion Motion management: 4D CT scan Bolus: No CT guidance: Following positioning of the patient, a series of slices was obtained to be utilized in treatment planning. CT images were transferred to the [employer] treatment planning system, after a reference isocenter was determined and marked. Segmentation and treatment planning will take place prior to treatment delivery. Patient set up and imaging was appropriate and completed without incident. Behavioral Health Care Coordinator use:No Associated attestation - Sophia Kemp M.D. - 11/11/2023 2:07 PM CDT I was present during all critical and garcia portions of the procedure(s) and immediately available [facility] services the entire duration. See note for details. documented in this encounter Plan of Treatment Upcoming Encounters Date Type Department Care Team (Late st Contact Info) Description 11/21/2023 2:15 PM CDT Appointment Department of Radiation Oncology in [place], [place] [address] [place] [phone] Sophia Kemp M.D. [address] [place] [address] 11/25/2023 2:15 PM CDT Appointment Department of Radiation Oncology in [address] [phone] Sophia Kemp M.D. [address] [place] [phone] 11/27/2023 2:15 PM CDT Appointment Department of Radiation Oncology in [place], [place] [address] [place] [phone] Sophia Kemp M.D. [address] [place] [phone] 11/27/2023 3:00 PM CDT Appointment Department of Radiation Oncology in [place], [place] [address] [place] [phone] Sophia Kemp M.D. [address] [place] [phone] 11/29/2023 2:15 PM CDT Appointment Department of Radiation Oncology in [place], [place] [address] [place] [phone] Sophia Kemp M.D. [address] [place] [phone] Pending Results Name Type Priority Associated Diagnoses Date/Time Initial Rad Onc Treatment Planning CT Simulation without IV Contrast Procedural Imaging Routine Secondary Malignant Neoplasm Bone (HCC) 11/11/2023 11:38 AM CDT documented as of this encounter Procedures Procedure Name Priority Date/Time Associated Diagnosis Comments INITIAL RAD ONC TREATMENT PLANNING CT SIMULATION Routine 11/11/2023 12:00 PM CDT Secondary Malignant Neoplasm Lymph Node (HCC) documented in this encounter Results * Initial Rad Onc Treatment Planning CT Simulation (11/11/2023 12:00 PM CDT) Narrative ESPINOZA CARLA - 11/11/2023 12:00 PM CDT Tamela Sheikh, RTT ? 11/11/2023 12:51 PM Initial Rad Onc Treatment Planning CT Simulation Performed by: Sophia Kemp M.D. Authorized by: Sophia Kemp M.D. ?? Sophia Kemp M.D. 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
--- OUTSIDE RECORDS SUMMARY | 2023-11-19 14:32 | XMS_ITS ---
Author Organization [facility] Address [address] [place] [address] Care Team Providers Care Beater Worker Helper Name Role Phone Unavailable Unavailable Unavailable Surgery Details Not on file Complications Check Surgery Details section. Procedure Estimated Blood Loss Check Surgery Details section. Procedure Findings Check Surgery Details section. Procedure Specimens Taken Check Surgery Details section.
--- OUTSIDE RECORDS SUMMARY | 2023-11-19 14:32 | XMS_ITS | Encounter Summary ---
Author Organization [facility] Address [address] [place] [address] Care Team Providers Care Cashier Gambling Name Role Phone Elsewhere, Pcp Primary Care Provider Unavailabl e Encounter Details Date Type Department Care Team (Late st Contact Info) Description 07/24/2023 Clinical Communication Department of Radiation Oncology in [place], [place] [address] [place] [address] Sophia Kemp M.D. [address] [place] [address] Social History Tobacco Use Types Packs/Day Years [...] any clubs o r organizations such as judaism groups, unions, fraternal or athletic groups, or [...] more drinks on one occasion? Never 05/20/2020 [facility] - Occupational Stress Questionnaire Answer [...] Sex Assigned at Female 06/28/2023 7:51 PM COAT HANGER SHAPER MACHINE OPERATOR Gender Identity Female 06/28/2023 7:52 PM COAT HANGER SHAPER MACHINE OPERATOR Sexual Orientation Straight 06/28/2023 7: 52 PM COAT HANGER SHAPER MACHINE OPERATOR documented as of this encounter Miscellaneous Notes * Telephone Encounter - Hyacinth Garrett - 07/24/2023 2:08 PM CDT Other Reason for Call Caller: Family Fare Relationships to patient: History Instructor Reason for call: Pharmacy called and they are unable to fill the prescription for this patients mouthwash as they are not a compounding pharmacy. documented in this encounter Plan of Treatment Upcoming Encounters Date Type Department Care Team (Late st Contact Info) Description 11/21/2023 2:15 PM CDT Appointment Department of Radiation Oncology in [address] [phone] Sophia Kemp M.D. [address] [place] [phone] 11/25/2023 2:15 PM CDT Appointment Department of Radiation Oncology in [address] [phone] Sophia Kemp M.D. [address] [place] [phone] 11/27/2023 2:15 PM CDT Appointment Department of Radiation Oncology in [address] [phone] Sophia Kemp M.D. [address] [place] [phone] 11/27/2023 3:00 PM CDT Appointment Department of Radiation Oncology in [address] [phone] Sophia Kemp M.D. [address] [place] [phone] 11/29/2023 2:15 PM CDT Appointment Department of Radiation Oncology in [address] [phone] Sophia Kemp M.D. [address] [place] [phone] documented as of this encounter Visit Diagnoses Not on filedocumented in this encounter Care Teams Cashier Gambling Relationship Specialty Start Date End Date Elsewhere, Pcp PCP - General Family Medicine 01/20/21 documented as of this encounter
--- OUTSIDE RECORDS SUMMARY | 2023-11-19 14:32 | XMS_ITS | Clinical Summary ---
Author Organization [facility] Address [address] [place] [address] Care Team Providers Care Aerodynamic Consultant Name Role Phone Elsewhere, Pcp Primary Care Provider Unavailabl e Source Comments Patient records contain information from all sites at [facility]. For routine questions regarding patient records, call [phone] during business hours, M-F 8:00 AM - 5:00 PM Central Time. Record requests for emergency care only can be directed to [phone] at any time.[facility] Allergies Active Allergy Reactions Criticality Noted Date [...] every morning before breakfast. 02/29/2020 Active omega 8-wqp-kre-fish oil 1,000 mg (120 mg-180 mg) capsule [...] whole with a drink of water. Active eucalyptus/peppermint oil (PONARIS NASAL) Administer 1 puff into nostril(s) daily as needed (dryness). Active naproxen-diphenhydrAM INE 220-25 mg tablet Take 1 tablet by [...] 1 mg by mouth. 06/21/2022 Activ e diphenhydramine-lidoc carol[place] 2 %-antacid (mw) Take 10 mL by mouth 4 (four) times a day as needed (for pain). Do not eat or drink for 15 minutes after use. 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 11/11/2023 11:38 AM CDT - 11/11/2023 2:07 PM CDT Hospital Encounter Department of Radiation Oncology in [address] [phone] Sophia Kemp M.D. Secondary Malignant Neoplasm Bone (HCC); Secondary Malignant Neoplasm Lymph Node (HCC) 11/11/2023 11:14 AM CDT Hospital Encounter Department of Radiation Oncology in [address] [phone] Sophia Kemp M.D. Mara Wylie, RCarmelinaN. Secondary Malignant Neoplasm Lymph Node (HCC) 11/11/2023 10:11 AM CDT - 11/11/2023 11:13 AM CDT Hospital Encounter Department of Radiation Oncology in [place], [place] [address] [place] [address] Sophia Kemp M.D. Secondary Malignant Neoplasm Lymph Node (HCC) (Primary Dx); Malignant Neoplasm Of Fallopian Tube Right (HCC); Secondary Malignant Neoplasm Bone (HCC) 11/04/2023 Orders Only Department of Radiation Oncology in [place], [place] [address] [place] [address] Kait Ch APRN, C.N.P., D.N.P. Secondary Malignant Neoplasm Bone (HCC) (Primary Dx); Secondary Malignant Neoplasm Lymph Node (HCC) from Last 3 Months Family History Medical [...] often do you attend chur ch or anabaptist services? Patient declined 05/20/2020 Do you belong to any clubs o r organizations such as presybeterian groups, unions, fraternal or athletic groups, or [...] more drinks on one occasion? Never 05/20/2020 [facility] - Occupational [...] Sex Assigned at Female 06/28/2023 7:51 PM PHOTOVOLTAIC INSTALLATION TECHNICIAN Gender Identity Female 06/28/2023 7:52 PM PHOTOVOLTAIC INSTALLATION TECHNICIAN Sexual Orientation Straight 06/28/2023 7: 52 PM PHOTOVOLTAIC INSTALLATION TECHNICIAN Last Filed Vital Signs Vital Sign Reading Time Taken Comments Blood Pressure 130/71 11/11/2023 10:41 AM CDT Pulse 92 11/11/2023 10:41 AM CDT Temperature 36.8 ??C (98.3 ??F) 11/11/2023 10:41 AM C DT Respiratory Rate 18 01/29/2021 12:30 PM CDT Oxygen Saturation 96% 01/29/2021 12:30 PM CDT Inhaled Oxygen Concentration - - Weight 99.1 kg (218 lb 7.6 oz) 11/11/2023 12:21 PM CDT Height 152 cm (4' 11.84) 03/01/2021 11:13 AM CS T Body Mass Index 42.89 03/01/2021 11:13 AM PHOTOVOLTAIC INSTALLATION TECHNICIAN Plan of Treatment Upcoming Encounters Date Type Department Care Team (Late st Contact Info) Description 11/21/2023 2:15 PM CDT Appointment Department of Radiation Oncology in [address] [phone] Sophia Kemp M.D. [address] [place] [phone] 11/25/2023 2:15 PM CDT Appointment Department of Radiation Oncology in [address] [phone] Sophia Kemp M.D. [address] [place] [phone] 11/27/2023 2:15 PM CDT Appointment Department of Radiation Oncology in [address] [phone] Sophia Kemp M.D. [address] [place] [phone] 11/27/2023 3:00 PM CDT Appointment Department of Radiation Oncology in [address] [address] Sophia Kemp M.D. [address] [place] [phone] 11/29/2023 2:15 PM CDT Appointment Department of Radiation Oncology in [address] [phone] Sophia Kemp M.D. [address] [place] [address] Health Maintenance Due Date Last Done Comments CT Colonography 1959 Cologuard 1959 Colonoscopy 1959 Colorectal Cancer Screening 1959 FIT 1959 HIV Screening 1959 Hepatitis C Screening 1959 Pneumococcal vaccine (0-64 years) (1 of 2 - PCV) 11/04/1965 Zoster Vaccines (1 of 2) 11/04/1978 Thyroid Stimulating Hormone (TSH) test for thyroid function 08/23/2022 08/23/2021, 04/11/2020, 02/19/2020, Additional history exists COVID-19 Vaccine ( - 2022- season) 2022 03/08/2022, 03/31/2021, 07/28/2020, Additional history [...] this topic Medical Devices Implanted Type Area Content Manager Device Identifier Shelf Expiration Date Model / Serial / Lot Knee Implant Knee Implant Bilateral: Abdomen Procedures Procedure Name Priority Date/Time Associated Diagnosis Comments ARIA DAILY TREATMENT INFORMATION Routine 11/19/2023 2:03 PM CDT ARIA COURSE COMPLETE TREATMENT INFORMATION Routine 11/14/2023 8:05 AM CDT INITIAL RAD ONC TREATMENT PLANNING CT SIMULATION Routine 11/11/2023 12:00 PM CDT Secondary Malignant Neoplasm Lymph Node (HCC) OUTSIDE NM PET Routine 10/25/2023 10:15 AM CDT BASIC METABOLIC PANEL, S/P STAT 01/29/2021 6:42 AM CDT OUTSIDE MG MAMMOGRAM Routine 03/22/2020 11:00 AM PHOTOVOLTAIC INSTALLATION TECHNICIAN from Last 3 Months or Most Recently Relevant to Health Maintenance Results * Aria Daily Treatment Information (11/19/2023 2:03 PM CDT) Course ID [id number] ESPINOZA ARIA Course Start Date 4 14:41 CDT ESPINOZA ARIA First Treatment Date 4 13:41 CDT ESPINOZA ARIA Last Treatment Date 4 14:03 CDT ESPINOZA ARIA Treatment Elapsed Days 0 ESPINOZA ARIA Reference Point [id number] crural ESPINOZA ARIA Dosage Given to Date cGy 600 ESPINOZA ARIA Session Dosage Given 600 ESPINOZA ARIA Reference Point [id number] owretro ESPINOZA ARIA Dosage Given to Date cGy 600 ESPINOZA ARIA Session Dosage Given 600 ESPINOZA ARIA Plan ID [id number] ESPINOZA ARIA Fractions Treated to Date 1 ESPINOZA ARIA Planned Total Fractions 5 ESPINOZA ARIA Prescribed Dose Per Fraction 600 ESPINOZA ARIA Prescription Dose in cGy 3000 ESPINOZA ARIA Plan Primary Reference Point [id number] crural ESPINOZA ARIA Plan ID [id number] ESPINOZA ARIA Fractions Treated to Date 1 ESPINOZA ARIA Planned Total Fractions 5 ESPINOZA ARIA Prescribed Dose Per Fraction 600 ESPINOZA ARIA Prescription Dose in cGy 3000 ESPINOZA ARIA Plan Primary Reference Point [id number] owretro ESPINOZA ARIA 11/19/2023 2:03 PM CDT Provider Not In System RADIATION ONCOLOG Y ORDERABLES ESPINOZA ARIA na * Aria Course Complete Treatment Information (11/14/2023 8:05 AM CDT) Course ID [id number] ESPINOZA ARIA Course Start Date 11/13/2023 09:03 CDT ESPINOZA ARIA Course End Date 11/14/2023 08:03 CDT ESPINOZA ARIA Reference Point [id number] tro ESPINOZA ARIA Dosage Given to Date cGy 0 ESPINOZA ARIA Plan ID [id number] ESPINOZA ARIA Fractions Treated to Date 0 ESPINOZA ARIA Planned Total Fractions 5 ESPINOZA ARIA Prescribed Dose Per Fraction 600 ESPINOZA ARIA Prescription Dose in cGy 3000 ESPINOZA ARIA Plan Primary Reference Point [id number] tro ESPINOZA ARIA Plan ID [id number] ESPINOZA ARIA Fractions Treated to Date 0 ESPINOZA ARIA Planned Total Fractions 5 ESPINOZA ARIA Prescribed Dose Per Fraction 600 SEPINOZA ARIA Prescription Dose in cGy 3000 ESPINOZA ARIA Plan Primary Reference Point [id number] tro ESPINOZA ARIA 11/14/2023 8:05 AM CDT Provider Not In System RADIATION ONCOLOG Y ORDERABLES OLGA AGUIRRE na * Initial Rad Onc Treatment Planning CT Simulation (11/11/2023 12:00 PM CDT) Narrative ESPINOZA ARIA - 11/11/2023 12:00 PM CDT Tamela Sheikh, RTT ? 11/11/2023 12:51 PM Initial Rad Onc Treatment Planning CT Simulation Performed by: Sophia Kemp M.D. Authorized by: Sophai Kemp M.D. ?? Sophia Kemp M.D. RADIATION ONCOLOG Y ORDERABLES OLGA AGUIRRE na * PET skull to mid thigh-Outside NM Pet (10/25/2023 10:15 AM CDT) 10/25/2023 10:1 4 AM CDT Narrative [facility] - 10/25/2023 1:18 PM CDT This order has been created and auto-finalized to support the import of outside images. If available, original interpretation can be found on the Media Tab in Chart Review, in Document Viewer, as an image in QREADS or as an Addendum. If a re-interpretation or overread is required please follow defined workflow.?? Provider Not In System IMG NM PROCEDURES [facility] NA * (ABNORMAL) Basic Metabolic Panel (01/29/2021 [...] 01/29/2021 7:34 AM CDT DTL eGFR-Black/Afri can Slovak >90 >=60 mL/min/BSA 01/29/2021 7:34 AM CDT DTL Comment: ----ADDITIONAL INFORMATION---- Estimated GFR calculated using the 2009 CKD_EPI creatinine equation. eGFR Non-Black/Afric an Slovak >90 >=60 mL/min/BSA 01/29/2021 7:34 AM CDT [...] Turner M.D., M.S. LAB BLOOD ADD -ON [facility] [address] [place] [address], [facility] DTL [facility] [address] [place] [address] * DIAGNOSTIC MAMMO, LEFT, W/CAD-Outside Mammogram (03/22/2020 11:00 AM PHOTOVOLTAIC INSTALLATION TECHNICIAN) Narrative [facility] - 04/07/2020 8:59 AM PHOTOVOLTAIC INSTALLATION TECHNICIAN This order has been created and auto-finalized to support the import of outside images. If available, original interpretation can be found on the Media Tab in Chart Review, in Document Viewer, or as an image in QREADS. If a re-interpretation or overread is required please follow defined workflow. ?? Provider Not In System IMG BI PROCEDURES [facility] NA from Last 3 Months or Most Recently Relevant to Health Maintenance Advance Directives For more information, please contact: [phone] * Full Code (Latest Code Status on [...] Answer Comments Full Code: Discussed Care Teams Aerodynamic Consultant Relationship Specialty Start Date End Date Elsewhere, Pcp PCP - General Family Medicine 01/20/21
--- OUTSIDE RECORDS SUMMARY | 2023-11-19 14:32 | XMS_ITS | Encounter Summary ---
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 [address] [place] [address] Referral ID Status Reason Start Date Expiration Date Visits Re quested Visits Authorized [id number] Closed 11/06/2023 2024 1 1 Encounter Details Date Type Department Care Team (Latest Contact Info) Description 11/11/2023 10:11 AM CDT - 11/11/2023 11:13 AM CDT Hospital Encounter Department of Radiation Oncology in [place], [place] [address] [place] [phone] Sophia Kemp M.D. 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 Patient declined 05/20/2020 Do you belong to any clubs o r organizations such as mosque groups, unions, fraternal or athletic groups, or [...] Sex Assigned at Female 06/28/2023 7:51 PM MACHINE II CUTTER Gender Identity Female 06/28/2023 7:52 PM MACHINE II CUTTER Sexual Orientation Straight 06/28/2023 7: 52 PM MACHINE II CUTTER documented as of this encounter Last Filed Vital Signs Vital Sign Reading Time Taken Comments Blood Pressure 130/71 11/11/2023 10:41 AM CDT Pulse 92 11/11/2023 10:41 AM CDT Temperature 36.8 ??C (98.3 ??F) 11/11/2023 10:41 AM C DT Respiratory Rate - - Oxygen Saturation - - Inhaled Oxygen Concentration - - Weight 99.1 kg (218 lb 7.6 oz) 11/11/2023 10:41 AM CDT Height - - Body Mass Index 42.89 03/01/2021 11:13 AM MACHINE II CUTTER documented in this encounter Medications at Time [...] monohydrate (Macrobid) 100 mg capsule 09/02/2023 omega [id number] oil 1,000 mg (120 mg-180 mg) capsule [...] as of this encounter Consult Notes * Kait Ch APRN, C.N.P., D.N.P. - 11/11/2023 11:00 AM CDT SUBJECTIVE REQUESTING PROVIDER Eloina Alarcon M.D. REASON FOR CONSULT 1. Secondary Malignant Neoplasm Lymph Node (HCC) 2. 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 Secondary Malignant Neoplasm Bone (HCC) SUPERVISED BY: Sophia Kemp M.D. HISTORY OF PRESENT ILLNESS Susan Ramirez is a 63 y.o. female with metastatic ovarian carcinoma. She has new PET avid metastatic disease at a left retrocrural lymph node and retroperitoneal lymph nodes. She also has a site of possible new disease at C4. She presents today for an opinion regarding the role of radiationtherapy in the management of her disease. 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 Pathology: ILC, G2, 0.3 cm from margin, ER 100%, VT 99%, HER2- by FISH 06/01/2020 - 06/07/2020 Radiation Therapy 2600 cGy in 5 fractions Radiation Therapy Treatment Details (06/01/2020 - 06/07/2020) Site: Left Breast Technique: 3D EXPRESSIVE MUSIC THERAPIST Goal: Curative Planned Treatment Start Date: 06/01/2020 [...] largest measuring 9-10 mm, SUV max 15.01. 07/09/2023 - 07/19/2023 Radiation Therapy Radiation Therapy Treatment Details (07/09/2023 - 07/19/2023) Sites: Supraclavicular fossa, Bilateral Retroperitoneum Technique: SBRT Fractions: 5 Goal: Palliative Dose: 3000 cGy 09/05/[address] C/A/P Impression: Mildly prominent PET avid lymph nodes in the lower para-aortic space and mid periaortic space are similar. Also similar mildly prominent left supraclavicular/left thoracic inlet lymph nodes without change compared to the recent CT PET. No new adenopathy. No suspicious intrahepatic mass or suspicious pulmonary nodule. 10/25/2023 Critical Imaging PET/CT CONCLUSION: 1. When compared to the PET-CT from May 2023, there is a newly hypermetabolic left retrocrurallymph node and a few stable hypermetabolic nodes in the retroperitoneum. (All of the aforementionednodes are nonenlarged but, given their increased FDG uptake, likely malignant.) 2. New hypermetabolism in the left lateral elements of C4 has no associated osteoblastic or osteolytic lesion and likely reflects routine degenerative change. Recommend close attention on routine surveillance. 3. The hypermetabolic subcentimeter left cervical and left supraclavicular nodes seen on the prior PET-CT are no longer visible, consistent with response to interval therapy. INTERVAL HISTORY The patient was seen and examined today with Dr. Kemp. The patient reports feeling well overall. She has been experiencing left neck pain since June. Shedescribes it as muscular and rates it at 4-5/10 at its worst. She reports some days are worse than others. She utilizes Biofreeze, heat, and stretching and find these helpful. She denies pain radiating down her left arm or any numbness or tingling down her left arm. She denies any weakness in her left arm. She feels this pain was brought on because of positioning due to previous radiation treatments. She reports the pain has not progressively worsened over this timeframe. She denies pain anywhere else. She denies any changes to bladder or bowel movements. Denies any blood or pain with bowel mo vements. She denies any new lumps or bumps. The patient does have a history of prior radiation therapy, as detailed above. The patient denies a history of connective tissue disorders or inflammatory bowel disease. The patient denies any implanted devices. Her ECOG performance status is 0. REVIEW OF SYSTEMS Review of systems was negative except as documented above. 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) Reflux Esophageal Rhinitis Allergic PAST SURGICAL HISTORY Past Surgical History: Procedure Laterality [...] EXTRACTION FAMILY HISTORY Family History Problem Relation Name Age of Onset Lymphoma Sister Melanoma Brother Prostate cancer Brother SOCIAL HISTORY Social History Socioeconomic History Marital status: Single Highest education level: 12th grade Occupational History Employer: [employer] Tobacco Use Smoking status: Never Smokeless tobacco: Never Vaping Use Vaping status: never used Substance and Sexual Activity Alcohol use: Yes Comment: Rare Social Determinants of Health Food Insecurity: No Food Insecurity (12/12/2022) [facility] [employer] [facility], [facility] Food Insecurity Worried About Running Out of Food in the Last Year: 1 Transportation Needs: No Transportation Needs (12/12/2022) [facility], [employer] [facility] Transportation Needs Lack of Transportation (Medical): 1 Physical Activity: Unknown (05/20/2020) Exercise Vital Sign Days of Exercise per Week: 0 days Minutes of Exercise per Session: Patient declined Housing Stability: Low Risk (12/12/2022) [facility], [employer] [facility] Housing Stability Unable to Pay for Housing in the Last Year: 1 OBJECTIVE BP 130/71 (BP Location: Right arm, Patient Position: Sitting, Cuff Size: Large) Pulse 92 Temp 36.8 ??C (Temporal) Wt 99.1 kg BMI 42.89 kg/m?? PHYSICAL EXAM General: Patient is alert and oriented in no apparent distress. Neck: Supple. Lymph: No palpable cervical, supraclavicular, infraclavicular, axillary or inguinal adenopathy. Spine: There is no tenderness to palpation of the spine. Lungs: Clear to auscultation bilaterally. Heart: Regular rate and rhythm. Normal S1 and S2. Neuro: Limited exam of upper extremities demonstrates normal sensation along with normal strength bilaterally. ASSESSMENT / PLAN #1 Metastatic ovarian carcinoma, metastatic to chest and abdomen, s/p partial response to chemotherapy #2 History of a Stage IB (cT2, cN0, cM0, G2, ER+, VT+, HER2-) left breast cancer, s/p surgery #3 Hypofractionated radiotherapy to the left breast and cavity completed on June 07, 2020 #5 SBRT to the 4 tumors in left supraclavicle/thoracic inlet and the left supraclavicular fossa initiated on July 09, 2023; completed July 19, 2023 #6 SBRT to retroperitoneal lymph nodes and retroperitoneum initiated on July 09, 2023; completed July 19, 2023 #7 PET/CT October 25, 2023 demonstrated new sites of disease in a left retrocrural lymph node and lowerretroperitoneal lymph nodes with possible additional disease at C4 It was a pleasure to meet with Adri today. I had a detailed discussion with her regarding her metastatic ovarian carcinoma diagnosis. We reviewed the oncologic history as detailed above. We discussed the risks, benefits, and alternatives of radiotherapy in this setting. We discussed the recommendation for radiation treatment to the left retrocrural lymph node and lower retroperitoneal lymph nodes in 5 fractions. We discussed the acute as well as care home risks, including, but not limited to fatigue, nausea/vomiting, rib fracture, chest wall pain, bowel changes, and bowel obstruction, as well as, very small risks for kidney damage or secondary malignancies We also discussed small risks of overlapping. Her most recent PET scan demonstrated hypermetabolic activity in the lateral aspect of C4. They also described this as possibly routine degenerative changes. We would like to further evaluate this with a diagnostic MRI before proceeding with treatment. We will schedule this at [facility] at the patient's earliest convenience. If the MRI does demonstrate malignancy we will plan to radiatethat area as well. Dr. Alarcon is not recommending systemic therapy at this time. After discussion, the patient verbally stated that she would like to proceed with treatment. She will undergo CT simulation today. We anticipate starting radiation therapy in the next 1-2 weeks. Patient seen in collaboration with Dr. Kemp, please review her attestation for additional information.The patient was provided with our contact information. She was asked to contact us with questions or concerns. She verbally expressed her understanding of the plan. EDUCATION Ready to learn, no apparent learning barriers were identified; learning preferences include listening. Explained diagnosis and treatment plan; patient expressed understanding of the content. CONSENT Discussed the risks, benefits, alternatives, and the necessity of other members of the healthcare team participating in the procedure. All questions answered and consent given. I personally spent 45 minutes in care of the patient today. Time includes both non face to face andface to face patient care. Signed by: Kait Ch APRN, C.N.P., D.N.P. 11/11/2023 11:18 AM CDT [facility] [address] [place] [address] Associated attestation - Sophia Kemp M.D. - 11/12/2023 1:43 PM CDT RADIATION ONCOLOGY CONSULT I saw and evaluated the patient and participated in the garcia portions of the service. I reviewed thedocumentation of Ms. Carballo FREDY Ch and agree with the findings and plan. Please see Ms. Ch's detailed note for the patient's initial presentation and work-up. Briefly, Ms. Ramirez a 63 year old female who is well known to me from her prior left breast cancer, but now presents to consider consolidative radiation for her metastatic ovarian carcinoma after prior SBRT where she has had an excellent response. She has two new sites of disease (left retrocrural and lower retroperitoneum). The area in the left lateral C4 is indeterminate.I have independently reviewed her imaging, operative and pathology reports. On exam, she appears well. Detailed exam as per Ms. Ch. We discussed the findings above and below in this note with the patient. We discussed her treatmentalternatives including observation vs adding radiation therapy. She had more extensive disease, buthas new disease in the left retrocrural and lower peritoneum (below or abutting our prior field). She has had prior radiation and we will have to be careful to not overlap or minimize low dose overlap. I think it is reasonable to offer SBRT consolidation to these areas of persistent disease. After talking with her about her neck pain, we have decided to proceed with an MRI at [facility] to further clarify whether or not this is arthritis/degenerative vs a metastasis before proceeding with radiation to that area as she never had had bone disease. If the MRI shows no obvious disease wemay hold on this area. I would treat the left retrocrural area and I fused her current PET/CT to our last plan for radiation and the retroperitoneal lymph nodes are just inferior to the prior course.There could be a little bit of overlap of abutment to the prior course of radiation. We discussed the rationale, risks, side effects and goals of radiation therapy. We discussed the acute as well as emt intermediate risks, including, but not limited to fatigue, esophagitis, nausea/vomiting,rib fracture, chest wall pain, brachial plexopathy, small risk for cord plexopathy, and bowel changes and bowel obstruction as well as very small risks for kidney damage or secondary malignancies We also discussed small risks of overlapping. She understood and her questions were answered. She wished to proceed with treatment. We tentatively plan on delivering 3000 cGy in a 5 every other day fractions starting November 19, 2023 to the left retrocrural and the inferior retroperitoneum. Hopefully, theMRI C-spine will take place sometime during the radiation so that we can review the results a that time. My thanks to Drs. Alarcon and Percy [...] DIAGNOSIS #1 Metastatic ovarian carcinoma, metastatic to C4, left retrocrural LN and lower retroperitoneum #2 History of a Stage IB (cT2, cN0, cM0, G2, ER+, VT+, HER2-) left breast cancer, s/p surgery #3 Hypofractionated radiotherapy to the left breast and cavity completed on June 07, 2020 #5 SBRT to the 4 tumors in left supraclavicle/thoracic inlet and the left supraclavicular fossa, completed July 19, 2023, responded #6 SBRT to retroperitoneal lymph nodes, completed July 19, 2023, responded #7 PET/CT October 25, 2023 demonstrated new sites of disease in a left retrocrural lymph node and lowerretroperitoneal lymph nodes with possible additional disease at C4 Signed by: Sophia Kemp M.D. 11/11/23 documented in this encounter Miscellaneous Notes * Addendum Note - Spohia Kemp M.D. - 11/11/2023 11:00 AM CDTEncounter addended by: Sophia Kemp M.D. on: 11/12/2023 1:44 PM Actions taken: Edit attestation on clinical note documented in this encounter Plan of Treatment Upcoming Encounters Date Type Department Care Team (Late st Contact Info) Description 11/21/2023 2:15 PM CDT Appointment Department of Radiation Oncology in [place], [place] [address] [place] [address] Sophia Kemp M.D. [address] [place] [address] 11/25/2023 2:15 PM CDT Appointment Department of Radiation Oncology in [address] [phone] Sophia Kemp M.D. [address] [place] [address] 11/27/2023 2:15 PM CDT Appointment Department of Radiation Oncology in [address] [phone] Sophia Kemp M.D. [address] [place] [address] 11/27/2023 3:00 PM CDT Appointment Department of Radiation Oncology in [address] [phone] Sophia Kemp M.D. [address] [place] [address] 11/29/2023 2:15 PM CDT Appointment Department of Radiation Oncology in [address] [phone] Sophia Kemp M.D. 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
--- OUTSIDE RECORDS SUMMARY | 2023-11-19 14:32 | XMS_ITS | Referral Summary ---
Author Organization [facility] Address [address] [place] [address] Care Team Providers Care Sales Service Rep Name Role Phone Elsewhere, Pcp Primary Care Provider Unavailabl e Source Comments Patient records contain information from all sites at [facility]. For routine questions regarding patient records, call [phone] during business hours, M-F 8:00 AM - 5:00 PM Central Time. Record requests for emergency care only can be directed to [phone] at any time.[facility] Encounters Date Type Department Care Team Description 11/19/2023 1:14 PM CDT Hospital Encounter Department of Radiation Oncology in [address] [phone] Sophia Kemp M.D. 11/11/2023 11:14 AM CDT Hospital Encounter Department of Radiation Oncology in [address] [phone] Sophia Kemp M.D. Grieman, Kari A, R.N. Secondary Malignant Neoplasm Lymph Node (HCC) 11/11/2023 11:38 AM CDT - 11/11/2023 2:07 PM CDT Hospital Encounter Department of Radiation Oncology in [address] [address] Sophia Kemp M.D. Secondary Malignant Neoplasm Bone (HCC); Secondary Malignant Neoplasm Lymph Node (HCC) 11/11/2023 10:11 AM CDT - 11/11/2023 11:13 AM CDT Hospital Encounter Department of Radiation Oncology in [place], [place] [address] [place] [phone] Sophia Kemp M.D. 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 Secondary Malignant Neoplasm Bone (HCC) (Primary Dx); Secondary Malignant Neoplasm Lymph Node (HCC) from Last 3 Months Allergies Active Allergy [...] every morning before breakfast. 02/29/2020 Active omega 6-zrk-xvs-fish oil 1,000 mg (120 mg-180 mg) capsule [...] Date Secondary Malignant Neoplasm Lymph Node 11/07/19 Secondary Malignant Neoplasm Bone 11/04/2023 Diarrhea 01/28/2021 Malignant Neoplasm Of Fallopian Tube Right 01/20 Cancer Staging:Pathologic stage from 01/20/2021:FIGO Stage IIA, calculated as Stage Unknown(pT1c3, pNX, cM0) - Signed by Danette Bowser M.D. on 01/26/2021 Mass Adnexal 12/23/2020 Overview (12/23/2020): Added automatically from request for surgery [id number] Malignant Neoplasm Of Breast Upper Inner Quadrant Female Left 04/11/2020 Cancer Staging:Clinical stage from 03/22/2020:Stage IB(cT2, cN0, cM0, G2, ER+, MO+, HER2-) - Unsigned Esophagitis Eosinophilic 01/12/2019 Overview [...] week 05/20/2020 How often do you attend up health system or anglican services? Patient declined 05/20/2020 Do [...] more drinks on one occasion? Never 05/20/2020 [facility] [...] Sex Assigned at Female 06/28/2023 7:51 PM RESERVATIONS AGENT Gender Identity Female 06/28/2023 7:52 PM RESERVATIONS AGENT Sexual Orientation Straight 06/28/2023 7: 52 PM RESERVATIONS AGENT Last Filed Vital Signs Vital Sign Reading [...] Body Mass Index 42.89 03/01/2021 11:13 AM RESERVATIONS AGENT Plan of Treatment Upcoming Encounters Date Type Department Care Team (Late st Contact Info) Description 11/21/2023 2:15 PM CDT Appointment Department of Radiation Oncology in [address] [address] Sophia Kemp M.D. [address] [place] [phone] 11/25/2023 2:15 PM CDT Appointment Department of Radiation Oncology in [address] [phone] Sophia Kemp M.D. [address] [place] [phone] 11/27/2023 2:15 PM CDT Appointment Department of Radiation Oncology in [address] [address] Sophia Kemp M.D. [address] [place] [phone] 11/27/2023 3:00 PM CDT Appointment Department of Radiation Oncology in [address] [phone] Sophia Kemp M.D. [address] [place] [phone] 11/29/2023 2:15 PM CDT Appointment Department of Radiation Oncology in [address] [phone] Sophia Kemp M.D. [address] [place] [phone] Medical Devices Implanted Type Area District Plant Supervisor Device Identifier Shelf Expiration Date Model [...] OUTSIDE MG MAMMOGRAM Routine 03/22/2020 11:00 AM RESERVATIONS AGENT from Last 3 Months or Most Recently Relevant to Health Maintenance Results * Aria Daily Treatment Information (11/19/2023 2:03 PM CDT) Course ID [id number] ESPINOZA ARIA Course Start Date 4 14:41 CDT ESPINOZA ARIA First Treatment Date 4 13:41 CDT ESPINOZA ARIA Last Treatment Date 4 14:03 CDT ESPINOZA ARIA Treatment Elapsed Days 0 ESPINOZA ARIA Reference Point [id number] crural ESPINOZA ARIA Dosage Given to Date cGy 600 ESPINOZA ARIA Session Dosage Given 600 ESPINOZA ARIA Reference Point [id number] owretro ESPINOZA ARIA Dosage Given to Date cGy 600 ESPINOZA ARIA Session Dosage Given 600 ESPINOZA ARIA Plan ID [id number] ESPINOZA ARIA Fractions Treated to Date 1 ESPINOZA ARIA Planned Total Fractions 5 ESPINOZA ARIA Prescribed Dose Per Fraction 600 ESPINOZA ARIA Prescription Dose in cGy 3000 ESPINOZA ARIA Plan Primary Reference Point [id number] crural ESPINOZA ARIA Plan ID [id number] ESPINOZA ARIA Fractions Treated to Date 1 ESPINOZA ARIA Planned Total Fractions 5 ESPINOZA ARIA Prescribed Dose Per Fraction 600 ESPINOZA ARIA Prescription Dose in cGy 3000 ESPINOZA ARIA Plan Primary Reference Point [id number] owretro ESPINOZA ARIA 11/19/2023 2:03 PM CDT Provider Not In System RADIATION ONCOLOG Y ORDERABLES Performing Organization Address [facility] Co de Phone Number OLGA AGUIRRE na * Aria Course Complete Treatment Information (11/14/2023 8:05 AM CDT) Course ID [id number] ESPINOZA ARIA Course Start Date 11/13/2023 09:03 CDT ESPINOZA ARIA Course End Date 11/14/2023 08:03 CDT ESPINOZA ARIA Reference Point [id number] tro ESPINOZA ARIA Dosage Given to Date cGy 0 ESPINOZA ARIA Plan ID [id number] ESPINOZA ARIA Fractions Treated to Date 0 ESPINOZA ARIA Planned Total Fractions 5 ESPINOZA ARIA Prescribed Dose Per Fraction 600 ESPINOZA ARIA Prescription Dose in cGy 3000 ESPINOZA ARIA Plan Primary Reference Point [id number] tro ESPINOZA ARIA Plan ID [id number] ESPINOZA ARIA Fractions Treated to Date 0 ESPINOZA ARIA Planned Total Fractions 5 ESPINOZA ARIA Prescribed Dose Per Fraction 600 ESPINOZA ARIA Prescription Dose in cGy 3000 ESPINOZA ARIA Plan Primary Reference Point [id number] tro ESPINOZA ARIA 11/14/2023 8:05 AM CDT Provider Not In System RADIATION ONCOLOG Y ORDERABLES Performing Organization Address [facility] de Phone Number OLGA AGUIRRE na * [...] System IMG NM PROCEDURES Performing Organization Address [facility] Co de Phone Number CHUCK NA * (ABNORMAL) [...] 01/29/2021 7:34 AM CDT DTL eGFR-Black/Afri can [facility] >90 >=60 mL/min/BSA 01/29/2021 7:34 AM CDT DTL Comment: ----ADDITIONAL INFORMATION---- Estimated GFR calculated using the 2009 CKD_EPI creatinine equation. eGFR Non-Black/Afric an [facility] >90 >=60 mL/min/BSA 01/29/2021 7:34 AM CDT [...] Turner M.D., M.S. LAB BLOOD ADD -ON Performing Organization Address [facility] Co de Phone Number [facility] [address] [place] [address], [facility] [address] [place] [address] * DIAGNOSTIC MAMMO, LEFT, W/CAD-Outside Mammogram (03/22/2020 11:00 AM RESERVATIONS AGENT) Narrative IIMS - 04/07/2020 8:59 AM RESERVATIONS AGENT This order has been created and auto-finalized to support the import of outside images. If available, original interpretation can be found on the Media Tab in Chart Review, in Document Viewer, or as an image in QREADS. If a re-interpretation or overread is required please follow defined workflow. ?? Provider Not In System IMG BI PROCEDURES Performing Organization Address [facility] Co de Phone Number IIMS NA from Last 3 Months or Most Recently Relevant to Health Maintenance Advance Directives For more information, please contact: [phone] * Full Code (Latest Code Status on [...] Answer Comments Full Code: Discussed Care Teams Sales Service Rep Relationship Specialty Start Date End Date Elsewhere, Pcp PCP - General Family Medicine 01/20/21
--- OUTSIDE RECORDS SUMMARY | 2023-11-19 14:32 | XMS_ITS | Clinical Summary ---
Author Organization [facility] Address [place], [place] [address] Care Team Providers Care Sole Leveler Name Role Phone Sara Greer MD Primary Care Prov ider Deon Mackay MD Unavailable Allergies Active Allergy Reactions Criticality Noted Date Comments Dust Mites Runny Nose 09/23/2012 found at allergy test Sulfa (Sulfonamide Antibiotics) Nausea And Vomiting Low 12/17/2006 nausea Medications Medication Sig Dispensed Refills Start Date End Date Status ONE-A-DAY WOMENS FORMULA 27 MG-0.4 MG TAB take 1 tablet by oral route once daily with food 0 8 Active Guycn-1-SDG-EPA-Fis h Oil 1,000 mg (120 mg-180 mg) [...] (PRILOSEC) 40 mg Delayed-Release capsuleIndications: Swallowing dysfunction Take 1 Capsule (40 mg) by mouth once daily before a meal. NOTE to pharmacy quantity change 90 Capsule 4 Active FLUoxetine (PROZAC) 10 mg capsuleIndications: Adjustment disorder with mixed anxiety and depressed mood Take 1 Capsule (10 mg) by mouth once daily. NOTE: quantity change 90 Capsule 4 Active FLUoxetine (PROZAC) 10 mg capsuleIndications: Adjustment disorder with mixed anxiety and depressed mood TAKE ONE CAPSULE BY MOUTH ONCE DAILY 30 Capsule 3 10/22/19 24 Discontinued(Reo rder (E-cancel not sent)) omeprazole (PRILOSEC) 40 mg Delayed-Release capsuleIndications: Swallowing dysfunction TAKE ONE CAPSULE BY MOUTH ONCE DAILY BEFORE A MEAL 90 Capsule 2 3 10/22/19 24 Discontinued omeprazole (PRILOSEC) 40 mg Delayed-Release capsuleIndications: Swallowing dysfunction TAKE ONE CAPSULE BY MOUTH ONCE EVERY DAY BEFORE A MEAL. 30 Capsule 4 11/18/19 24 Discontinued FLUoxetine (PROZAC) 10 mg capsuleIndications: Adjustment disorder with mixed anxiety and depressed mood Take 1 Capsule (10 mg) by mouth once daily. 30 Capsule 4 11/18/19 24 Discontinued FLUoxetine (PROZAC) 10 mg capsuleIndications: Adjustment disorder with mixed anxiety and depressed mood Take 1 Capsule (10 mg) by mouth once daily. Due for visit before next refill 30 Capsule 4 11/19/19 24 Discontinued(Reo rder (E-cancel not sent)) omeprazole (PRILOSEC) 40 mg Delayed-Release capsuleIndications: Swallowing dysfunction TAKE ONE CAPSULE BY MOUTH ONCE DAILY BEFORE A MEAL 30 Capsule 4 11/19/19 24 Discontinued(Reo rdbhargav (E-cancel not sent)) Active Problems Problem Noted Date Diagnosed Date [...] Encounters Date Type Department Care Team Description 11/16/2023 Refill [facility] [address] [place] [address] Sara Greer MD Refill Request (Fluoxetine, Omeprazole) 10/25/2023 Orders Only [facility] Scanner 1 scan: (1-Ord) [place], TSH, 10/25/2023 10/25/2023 Orders Only [facility] Scanner 1 scan: (1-Ord) [place], PET/CT EYES TO THIGHS,CANCER RESTAGING, 10/25/2023 10/25/2023 Orders Only [facility] Scanner 1 scan: (1-Ord) [facility], MULTIPLE RESULTS, 10/25/2023 10/22/2023 Telephone [facility] [address] [facility] [address] Sara Greer MD Lab (Orders needed for a IFOBT) 10/21/2023 Refill [facility] [address] [facility] [address] Sara Greer MD Refill Request (Omeprazole) 10/14/2023 7:00 AM CDT Orders Only [facility] [address] [place] [address] Lab 09/05/[address] [facility] Scanner 1 scan: (1-Ord) [place], CT CHEST ABDOMEN PELV W CON, 09/05/2023 [...] 1 [place]rell melanoma Graves' disease Brother 2 [facility] Cancer-prostate Brother 3 Anthony Other Father Fall [...] Health Maintenance Due Date Last Done Comments HIV for age 15-65 11/04/1974 Zoster (shingles) [...] Tdap Completed 11/26/2013 Hepatitis C screening for age 18-79 Completed 04/11/2020 Pneumococcal series for age 6-64 Aged Out No longer eligible based on patient's age to complete this topic Procedures Procedure Name Priority Date/Time Associated Diagnosis Comments SCAN-LABORATORY REPORT 4 12:00 AM CDT SCAN-LABORATORY REPORT 4 12:00 AM CDT SCAN-PET SCAN 10/25/2023 12:00 AM CDT OCCULT BLOOD IFOBT STOOL Routine 10/14/2023 3:15 PM CDT Screening for colon cancer SCAN-CT INTERPRETATION 4 12:00 AM CDT XR MAMMO JACLYN BILAT SCREEN Routine 05/23/2023 10:48 AM POTATO CHIP FRYER Breast cancer screening ANTI HCV Routine 04/11/2020 10:25 AM POTATO CHIP FRYER Need for hepatitis C screening test 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 Scanner OTHER * OCCULT BLOOD IFOBT STOOL (10/14/2023 3:15 PM CDT) STOOL BLOOD ,IFOBT Negative Negative 10/23/2023 8:49 AM CDT [facility] Stool STOOL SPECIMEN / Unknown Non-Blood / Unknown 10/14/2023 3:15 PM CDT 10/22/2023 3:15 PM CDT Sara Greer MD LABORATORY [facility] [address] [place] [address], * SCAN-CT INTERPRETATION (09/05/2023 12:00 AM CDT) Anatomical Region Laterality Modality Other Scanner OTHER * XR MAMMO JACLYN BILAT SCREEN (05/23/2023 10:48 AM POTATO CHIP FRYER) Anatomical Region Laterality Modality BREASTS, Breast Left, Breast Right Bilateral Mammography Impressions 05/23/2023 3:58 PM POTATO CHIP FRYER ??There is no radiographic evidence for malignancy. ??Recommend annual mammograms. MAMMOGRAM ASSESSMENT: ??ACR 1 Negative PATIENTS: You will also receive a letter with your examination results in an easy to read format. ??If you have questions about your results, please contact your referring provider. Narrative 05/23/2023 3:58 PM POTATO CHIP FRYER For Patients: As a result of the Century Cures Act, medical imaging exams and procedure reports are released immediately into your electronic medical record. You may view this report before your referring provider. If you have questions, please contact your health care provider. XR MAMMO JACLYN BILAT SCREEN [[id number]] CLINICAL HISTORY: ??This is an asymptomatic 62 y.o. patient. INDICATION FOR EXAM: Mammogram Screening. TECHNIQUE: CC & MLO views were obtained. ??This study was evaluated with the assistance of Computer-Aided Detection. Breast Tomosynthesis was used in interpretation. COMPARISON FILM: Yes 05/04/22 [facility] 03/29/21 [facility] FINDINGS: ??The breasts are heterogeneously dense, which may obscure small masses. There are no dominant masses, suspicious micro calcifications or areas of architectural distortion. Sara Greer MD MAMMO * ANTI HCV (04/11/2020 10:25 AM POTATO CHIP FRYER) HEPATITIS C ANTIBODY Non-React christopher Non-React christopher 04/11/2020 6:09 PM POTATO CHIP FRYER [facility] [employer] LABORATORY-LOU TRAL LABORATORY Comment:Antibodies to HCV no t detected; does not exclude the possibility of exposure to HCV. Blood BLOOD SPECIMEN / Unknown Butterfly / Unknown 04/11/2020 10:25 AM POTATO CHIP FRYER 04/11/2020 10:28 AM POTATO CHIP FRYER Sara Greer MD SEND OUTS [facility] [employer] LABORATORY-CENTRAL LABORATORY [address] [place] [address], * INDUSTRIAL CLEANING TECHNICIAN THIN PREP PAP SCREEN IMAGED (02/29/2020 2:40 PM POTATO CHIP FRYER) Case Report Gynecologic Cytology Report ? Case: [id number] ? Authorizing Provider: ??Sara Greer ? Collected: ? 02/29/2020 1440 ? MD Afia ? Ordering Location: ? [facility] ?? Received: ?02/29/2020 1526 ? Clinic ? First Screen: ?Renetta Pineda ? Specimen: ?INDUSTRIAL CLEANING TECHNICIAN ThinPrep Vial Screening, Cervical ? 03/08/2020 12:46 PM POTATO CHIP FRYER [employer] LABORATORY-C ENTRAL LABORATORY INTERPRETATION/ RESULT NEGATIVE FOR INTRAEPITHELIAL LESION OR MALIGNANCY (NIL) (none) 03/08/2020 12:46 PM POTATO CHIP FRY[facility] [employer] LABORATORY-C ENTRAL LABORATORY IMEN ADEQUACY Satisfactory for evaluation No endocervical component seen 03/08/2020 12:46 PM POTATO CHIP FRYER [facility] ENTRMD LABORATORY HPV REQUEST HPV and PAP 03/08/2020 12:46 PM [employer]OTATO CHIP FRYER [facility] ENTRAL LABORATORY Date of LMP N/A 03/08/2020 12:46 PM [facility]IP [facility]ER [facility] ENTRAL LABORATORY Last Pap Date 01/24/17 03/08/2020 12:46 PM [facility] CHIP [facility] ENTRAL LABORATORY Last Pap Result NIL 0 12:46 PM [employer] [facility] ENTRAL LABORATORY Abnormal Pap or Dennis Bx in last 5 years No 03/08/2020 12:46 PM [employer] [facility] ENTRAL LABORATORY Menstrual Status Postmenopausal 03/08/2020 12:46 PM [employer] [facility] ENTRAL LABORATORY Dennis Bx Done Today No 03/08/2020 12:46 PM [employer] CHIP FR[facility]ER [facility] Additional Information None given 03/08/2020 12:46 PM POTATO CHIP FRYER [facility] ENTRAL LABORATORY Comment: Cytology is screened at [facility] Laboratory - [address], [place] [address] and [facility] - [address] [place] [address] and [facility] - [address] [place] [address] Interpreted at [facility], Central Laboratory - [address], [place] [address] Automated Review Successful 03/08/2020 12:46 PM POTATO CHIP FRYER [facility] LABORATORY Comment:Specimen processed s uccessfully by automated transit authority police officer device, ThinPrep Imaging System, [employer] ANCILLARY TESTING INDUSTRIAL CLEANING TECHNICIAN HPV Ordered, Please see separate report 03/08/2020 12:46 PM POTATO CHIP FRYER [facility] LAB[facility] Note The pap test is a screening technique, not a diagnostic procedure. It is used primarily to screen for squamous cancers and precursor lesions. Published studies have shown that it is subject to both false negative and false positive results. The pap test should not be used as the sole means to diagnose or exclude pre-malignant and malignant lesions. 03/08/2020 12:46 PM POTATO CHIP FRYER [facility] LABORATORY-C ENTRAL LABORATORY Other (Cervical) Non-Blood / Unknown 02/29/2020 2:40 PM POTATO CHIP FRYER 02/29/2020 3:26 PM POTATO CHIP FRYER Sara Greer MD PATHOLOGY/ CYTOLOGY [facility]-CENTRAL LABORATORY [address] [place] [address], [place] * (ABNORMAL) LIPID PANEL W REFLEX MEASURED LDL (02/19/2020 1:58 PM CDT) CHOLESTEROL,TOTAL 223(H) 100 - 199 mg/dL 02/19/2020 9:33 PM CDT [facility]AT[facility] TRAL LABORATORY TRIGLYCERIDES 128 <150 mg/dL 02/19/2020 9:33 PM CDT [facility] TRAL LABORATORY HDL CHOLESTEROL 65 >40 mg/dL 0 9:33 PM CDT [facility] TRAL LABORATORY NON-HDL CHOLESTEROL 158(H) <145 mg/dl 02/19/2020 9:33 PM CDT [facility] TRAL LABORATORY CHOL/HDL RATIO 3.43 <4.50 02/19/2020 9:33 PM CDT [facility] TRAL LABORATORY LDL CHOLESTEROL 132(H) <=130 mg/dL 02/19/2020 9:33 PM CDT [facility] TRAL LABORATORY PROVIDER ORDERED STATUS RANDOM 02/19/2020 9:33 PM CDT [facility] TRAL LABORATORY Blood BLOOD SPECIMEN / Unknown Butterfly / Unknown 02/19/2020 1:58 PM CDT 02/19/2020 1:58 PM CDT Sara Greer MD CHEMISTRY [facility]TRAL LABORATORY [address] [place] [address], [place] from Last 3 Months or Most Recently Relevant to Health Maintenance Care Teams Sole Leveler Relationship Specialty Start Date End Date Sara Greer MD [address] [place] [address] PCP - General 08/11/05 Deon Mackay MD [address] [place] [address] Orthopedics Surgery - Orthopedics 09/19/17
--- OUTSIDE RECORDS SUMMARY | 2023-11-19 14:32 | XMS_ITS | Encounter Summary ---
Author Organization [facility] Address [address] [place] [address] Care Team Providers Care Oral And Maxillofacial Surgery Name Role Phone Elsewhere, Pcp Primary Care Provider Unavailabl e Encounter Details Date Type Department Care Team (Late st Contact Info) Description 11/19/2023 1:14 PM CDT Hospital Encounter Department of Radiation Oncology in [place], [place] [address] [place] [phone] Sophia Kemp M.D. 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 [address] [place] [phone] 11/25/2023 2:15 PM CDT Appointment Department of Radiation Oncology in [address] [phone] Sophia Kemp M.D. [address] [place] [phone] 11/27/2023 2:15 PM CDT Appointment Department of Radiation Oncology in [address] [phone] Sophia Kemp M.D. [address] [place] [phone] 11/27/2023 3:00 PM CDT Appointment Department of Radiation Oncology in [address] [phone] Sophia Kemp M.D. [address] [place] [phone] 11/29/2023 2:15 PM CDT Appointment Department of Radiation Oncology in [address] [phone] Sophia Kemp M.D. [address] [place] [phone] documented as of this encounter Visit Diagnoses Not on filedocumented in this encounter Care Teams Oral And Maxillofacial Surgery Relationship Specialty Start Date End Date Elsewhere, Pcp PCP - General Family Medicine 01/20/21 documented as of this encounter
--- NOTE | 2023-11-19 15:30 | CRLHL7_ITS ---
For Patients: As a result of the Century Cures Act, medical imaging exams and procedure reports are released immediately into your electronic medical record. You may view this report before your referring provider. If you have questions, please contact your health care provider. 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 Technique: Multisequence multiplanar MRI of the cervical spine prior to and following administration of 20 cc Dotarem gadolinium based intravenous contrast. Comparison: Correlated with PET-CT dated 10/25/2023. Findings: Mild exaggeration the cervical lordosis without spondylolisthesis. Vertebral body heights are preserved. No suspicious T1 hypointense infiltrative or enhancing lesion is identified. There is mild edema and enhancement about the degenerative left C3-C4 facet joint. The cervical spinal cord is normal in signal intensity. No focus of abnormal epidural or intrathecal enhancement is identified. C2-C3: No significant spinal canal or neural foraminal stenosis. C3-C4: Shallow symmetric disc bulge. No significant spinal canal stenosis. Moderate bilateral facet joint hypertrophy. Mild right and no significant left neural foraminal narrowing. C4-C5: Shallow symmetric disc bulge. No significant spinal canal stenosis. Mild bilateral neural foraminal narrowing associated with uncovertebral and facet joint arthrosis. C5-C6: Shallow symmetric disc bulge. No significant spinal canal stenosis. Mild bilateral neural foraminal narrowing associated with uncovertebral and facet joint arthrosis. C6-C7: Moderate disc desiccation and height loss. Shallow symmetric disc bulge. Moderate right and mild left neural foraminal narrowing associated with uncovertebral and facet joint arthrosis. C7-T1: No significant spinal canal or neural foraminal stenosis. Impression: 1. Mild edema and enhancement within the articular facets adjacent to the C3-C4 facet joint, favored to be degenerative in etiology. 2. No convincing evidence for metastasis within the cervical spine. 3. At C6-C7, moderate right neural foraminal narrowing. Dictated by Isaias Nick MD @ 11/22/2023 12:49:53 PM (Electronically Signed)
== END 2023-11-19 14:28 | disposition home or self-care (01) ==
LOC: MRI 14:28
PROVIDERS: PCP Family Medicine; Visit Provider Nurse Practitioner
DX: C79.51 Secondary malignant neoplasm of bone (principal); M50.223 Other cervical disc displacement at C6-C7 level
CPT/HCPCS: 72156; A9575

== ENCOUNTER 2024-04-08 14:00 | Outpatient (RCR) | payer OTHER, SELFPAY ==
[2023-10-28 19:02] LABS: Chloride* 106 mmol/L (96-114); Sodium* 137 mmol/L (135-149)
[2023-10-28 19:03] LABS: Potassium* 4.6 mmol/L (3.6-5.1)
[2023-10-28 19:05] LABS: Alanine Aminotransferase* 21 U/L (4-35); Alkaline Phosphatase* 118 U/L (40-150); Anion Gap 5 mEq/L (7-15); Aspartate Amino Transferase* 34 U/L (12-35); Bilirubin Total* 0.4 mg/dL (0.1-1.5); Blood Urea Nitrogen* 19 mg/dL (7-30); Carbon Dioxide* 26 mmol/L (20-32); Creatinine* 0.6 mg/dL (0.5-1.5); Estimated Glomerular Filt Rate 101 ml/min; Glucose* 75 mg/dL (60-115); Total Protein* 7.2 g/dL (6.0-8.3)
[2023-10-28 19:06] LABS: Calcium* 10.4 mg/dL (8.4-10.6)
[2023-10-30 18:06] LABS: Cancer Antigen 125 5 U/mL (<=38)
[2023-11-11] MEDS: HEPARIN 500 UNIT/5 ML SYRINGE IVF (10:15)
[2023-11-11] MEDS: SODIUM CHLORIDE 0.9 % (FLUSH) 10 ML SYRINGE IVF (10:15)
[2023-12-10] MEDS: SODIUM CHLORIDE 0.9 % (FLUSH) 10 ML SYRINGE IVF (14:43)
[2023-12-10] MEDS: HEPARIN 500 UNIT/5 ML SYRINGE IVF (14:43)
[2024-01-17] MEDS: SODIUM CHLORIDE 0.9 % (FLUSH) 10 ML SYRINGE IVF (13:53)
[2024-01-17] MEDS: HEPARIN 500 UNIT/5 ML SYRINGE IVF (13:54)
[2024-02-27 14:43] LABS: Basophils Percent Auto 0.7 % (0.0-3.0); Eosinophils Percent Auto 3.3 % (0.0-7.0); Hematocrit 36.6 % (33.0-51.0); Immature Granulocytes Pct Auto 0.2 %; Lymphocytes Percent Auto 11.2 % (20-44); Mean Corpuscular HGB Conc 33 gm/dL (32-36); Mean Corpuscular Hemoglobin 31 pg (26-34); Mean Corpuscular Volume 95 fL (80-100); Monocytes Percent Auto 11.2 % (0.0-11.0); Neutrophils Percent Auto 73.4 % (42.0-72.0); Platelet Count* 202 K/uL (140-440); RDW Coefficient of Variation % 12.9 % (11.5-15.5); Red Blood Count 3.84 m/uL (4.00-5.20)
[2024-02-27 14:46] LABS: Slide Review Reflex No
[2024-02-27 14:59] LABS: Albumin* 4.1 g/dL (3.3-5.0); Chloride* 103 mmol/L (96-114)
[2024-02-27 15:00] LABS: Potassium* 3.7 mmol/L (3.6-5.1); Sodium* 136 mmol/L (135-149)
[2024-02-27 15:02] LABS: Anion Gap 9 mEq/L (7-15); Aspartate Amino Transferase* 29 U/L (12-35); Bilirubin Total* 0.6 mg/dL (0.1-1.5); Blood Urea Nitrogen* 19 mg/dL (7-30); Carbon Dioxide* 24 mmol/L (20-32); Creatinine* 0.6 mg/dL (0.5-1.5); Est. Creatinine Clearance* 90.17; Estimated Glomerular Filt Rate 100 ml/min
[2024-02-27 15:03] LABS: Alanine Aminotransferase* 22 U/L (4-35); Alkaline Phosphatase* 119 U/L (40-150); Calcium* 9.4 mg/dL (8.4-10.6); Glucose* 86 mg/dL (60-115)
[2024-03-01 15:01] LABS: Cancer Antigen 125 5 U/mL (<=38)
[2024-04-08] MEDS: HEPARIN 500 UNIT/5 ML SYRINGE IVF (14:15)
[2024-04-08] MEDS: SODIUM CHLORIDE 0.9 % (FLUSH) 10 ML SYRINGE IVF (14:15)
== END 2024-04-22 23:59 | disposition home or self-care (01) ==
LOC: CCIC 14:00
PROVIDERS: PCP Family Medicine; Referring Provider Family Medicine; Visit Provider Internal Medicine Hematology & Oncology
DX: C50.912 Malignant neoplasm of unspecified site of left female breast (principal); Z17.0 Estrogen receptor positive status [ER+]; C57.01 Malignant neoplasm of right fallopian tube; Z79.811 Long term (current) use of aromatase inhibitors
CPT/HCPCS: 36415; 36591; 78815; 80053; 85025; 86304; 99211; 99213; 99214; G0463; A9552; J1642

== ENCOUNTER 2024-06-04 13:19 | Outpatient (CLI) | payer BC, SELFPAY | END 2024-06-04 13:20 | disposition home or self-care (01) | LOC: RAD 13:19 | PROVIDERS: PCP Family Medicine; Visit Provider Internal Medicine Hematology & Oncology | DX: C57.00 Malignant neoplasm of unspecified fallopian tube (principal); R59.0 Localized enlarged lymph nodes; K57.30 Diverticulosis of large intestine without perforation or abscess without bleeding | CPT/HCPCS: 78815; A9552 ==

== ENCOUNTER 2024-07-30 14:41 | Outpatient (CLI) | payer BC, SELFPAY ==
--- NOTE | 2024-07-30 15:00 | CRLHL7_ITS ---
For Patients: As a result of the Century Cures Act, medical imaging exams and procedure reports are released immediately into your electronic medical record. You may view this report before your referring provider. If you have questions, please contact your health care provider. CLINICAL HISTORY: Fallopian tube cancer. TECHNIQUE: Following IV injection of 83-evxgnc-7-deoxyglucose (FDG) and a standard uptake period of approximately 60 minutes, a non-contrast CT scan followed by a PET scan were acquired along the length of the body from the mid portion of the head to the mid thighs. The non-contrast CT was used for anatomic localization and photon attenuation correction of the PET scan. Blood Glucose Level (mg/dL): 89 FDG Dose (mCi): 12.3 COMPARISON: PET-CT scans dated 04 June 2024 and 27 February 2024. FINDINGS: Head/Neck: No abnormal activity identified in the head and neck. Chest: Left-sided Port-A-Cath. Small paraesophageal lymph node the level of the subcarinal region shows increased activity, SUV max 7.2 previously 7.7. No other mediastinal or hilar adenopathy. No axillary adenopathy. The lungs show no focal pulmonary opacities. No pneumothorax. Abdomen/Pelvis: Probable cysts in the liver are unchanged and show no activity. No other focal abnormalities identified in the visualized portions of the liver, spleen, pancreas, adrenal glands, and kidneys. No hydronephrosis. Hysterectomy. The GI tract is incompletely distended but shows no gross abnormalities. Small left retroperitoneal lymph node at the level of the left kidney, SUV max 4.6 previously 4.7. No pelvic sidewall or mesenteric adenopathy. Atherosclerotic vascular calcifications. Bones: No abnormal skeletal activity identified. Degenerative changes of the spine. IMPRESSION: 1. Small paraesophageal mediastinal lymph node and small left retroperitoneal lymph node likely represent marquis metastases and shows slightly decreased activity. 2. No other abnormal activity identified. Dictated by Krish Ac MD @ 07/31/2024 3:05:00 PM (Electronically Signed)
== END 2024-07-30 14:42 | disposition home or self-care (01) ==
LOC: RAD 14:42
PROVIDERS: PCP Family Medicine; Visit Provider Internal Medicine Hematology & Oncology
DX: C57.00 Malignant neoplasm of unspecified fallopian tube (principal); R59.0 Localized enlarged lymph nodes
CPT/HCPCS: 78815; 99211; A9552

== ENCOUNTER 2024-10-19 14:00 | Outpatient (RCR) | payer BC, SELFPAY ==
[2024-06-04] MEDS: SODIUM CHLORIDE 0.9 % (FLUSH) 10 ML SYRINGE IVF (13:50)
[2024-06-04] MEDS: HEPARIN 500 UNIT/5 ML SYRINGE IVF (13:50)
[2024-06-04 13:51] LABS: Hematocrit 35.7 % (33.0-51.0); Hemoglobin* 11.6 gm/dL (12.0-16.0); Immature Granulocytes Abs Auto 0.00 K/uL (0.00-0.30); Immature Granulocytes Pct Auto 0.0 %; Mean Corpuscular HGB Conc 33 gm/dL (32-36); Mean Corpuscular Hemoglobin 30 pg (26-34); Mean Corpuscular Volume 93 fL (80-100); RDW Coefficient of Variation % 13.7 % (11.5-15.5); Red Blood Count 3.83 m/uL (4.00-5.20); White Blood Count* 3.73 K/uL (4.50-11.00)
[2024-06-04 13:53] LABS: Lymphocytes Absolute Auto 0.40 K/uL (0.90-2.90)
[2024-06-04 13:54] LABS: Slide Review Reflex No
[2024-06-04 14:04] LABS: Albumin* 3.9 g/dL (3.3-5.0); Chloride* 104 mmol/L (96-114)
[2024-06-04 14:05] LABS: Potassium* 3.8 mmol/L (3.6-5.1); Sodium* 137 mmol/L (135-149)
[2024-06-04 14:07] LABS: Alkaline Phosphatase* 118 U/L (40-150); Anion Gap 8 mEq/L (7-15); Aspartate Amino Transferase* 25 U/L (12-35); Bilirubin Total* 0.6 mg/dL (0.1-1.5); Carbon Dioxide* 25 mmol/L (20-32); Creatinine* 0.7 mg/dL (0.5-1.5); Estimated Glomerular Filt Rate 97 ml/min
[2024-06-04 14:08] LABS: Alanine Aminotransferase* 19 U/L (4-35); Blood Urea Nitrogen* 19 mg/dL (7-30); Calcium* 9.0 mg/dL (8.4-10.6); Glucose* 91 mg/dL (60-115); Total Protein* 6.5 g/dL (6.0-8.3)
[2024-07-09] MEDS: HEPARIN 500 UNIT/5 ML SYRINGE IVF (14:10)
[2024-07-09] MEDS: SODIUM CHLORIDE 0.9 % (FLUSH) 10 ML SYRINGE IVF (14:10)
[2024-07-30] MEDS: SODIUM CHLORIDE 0.9 % (FLUSH) 10 ML SYRINGE IVF (14:56)
[2024-08-17] MEDS: SODIUM CHLORIDE 0.9 % (FLUSH) 10 ML SYRINGE IVF (12:57)
[2024-08-17 13:29] LABS: Creatinine* 0.7 mg/dL (0.5-1.5); Est. Creatinine Clearance* 86.40; Estimated Glomerular Filt Rate 97 ml/min
[2024-09-18] MEDS: HEPARIN 500 UNIT/5 ML SYRINGE IVF (13:55)
[2024-09-18] MEDS: SODIUM CHLORIDE 0.9 % (FLUSH) 10 ML SYRINGE IVF (13:56)
[2024-10-19] MEDS: HEPARIN 500 UNIT/5 ML SYRINGE IVF (14:05)
[2024-10-19] MEDS: SODIUM CHLORIDE 0.9 % (FLUSH) 10 ML SYRINGE IVF (14:06)
--- NOTE | 2024-12-01 09:53 | ONC.NURNOTE ---
Pt called today to report that since retiring from working she has switched to Medicare with a BC supplement. She has her Medicare number but hasn't received the BC number/ID card. For that reason, she needs to delay her PET scan and MD f/u. Pt's scheduled was changed and she agrees with the plan. Pt is aware that her MD f/u is virtual and she is ok with that.
== END 2024-12-01 23:59 | disposition home or self-care (01) ==
LOC: CCIC 14:00
PROVIDERS: PCP Family Medicine; Referring Provider Family Medicine; Visit Provider Internal Medicine Hematology & Oncology
DX: C50.912 Malignant neoplasm of unspecified site of left female breast (principal); Z17.0 Estrogen receptor positive status [ER+]; C57.01 Malignant neoplasm of right fallopian tube; Z79.811 Long term (current) use of aromatase inhibitors
CPT/HCPCS: 36415; 36591; 78815; 80050; 80053; 82565; 84443; 85025; 86304; 99211; 99214; 99215; G0463; A9552; J1642

== ENCOUNTER 2024-12-17 12:47 | Outpatient (CLI) | payer MEDICARE, BC, SELFPAY ==
--- NOTE | 2024-12-17 13:30 | CRLHL7_ITS ---
For Patients: As a result of the Century Cures Act, medical imaging exams and procedure reports are released immediately into your electronic medical record. You may view this report before your referring provider. If you have questions, please contact your health care provider. CLINICAL HISTORY: Fallopian tube cancer. TECHNIQUE: Following IV injection of 49-hlrbgb-7-deoxyglucose (FDG) and a standard uptake period of approximately 60 minutes, a non-contrast CT scan followed by a PET scan were acquired along the length of the body from the mid portion of the head to the mid thighs. The non-contrast CT was used for anatomic localization and photon attenuation correction of the PET scan. Blood Glucose Level (mg/dL): 107 FDG Dose (mCi): 11.6 COMPARISON: PET-CT scans dated 30 July 2024 and 04 June 2024. FINDINGS: Head/Neck: No abnormal activity identified in the head and neck. Chest: Left-sided Port-A-Cath. No mediastinal or hilar adenopathy. No axillary adenopathy. Resolution of the subcarinal lymph node seen on the previous study. The lungs show no focal pulmonary opacities. No pneumothorax. Abdomen/Pelvis: A few small probable cysts in the liver. No other focal abnormalities identified in the visualized portions of the liver, spleen, pancreas, adrenal glands, and kidneys. No hydronephrosis. Hysterectomy. The GI tract is incompletely distended but shows no gross abnormalities. Resolution of the left retroperitoneal lymph node. No retroperitoneal, pelvic sidewall, or mesenteric adenopathy. Atherosclerotic vascular calcifications. Bones: Degenerative changes of the spine. No abnormal skeletal activity identified. IMPRESSION: 1. No metastatic disease identified. 2. Resolution of the subcarinal and left retroperitoneal lymph nodes. Dictated by Krish Ac MD @ 12/22/2024 7:36:17 AM (Electronically Signed)
== END 2024-12-17 12:48 | disposition home or self-care (01) ==
LOC: RAD 12:52
PROVIDERS: PCP Family Medicine; Visit Provider Internal Medicine Hematology & Oncology
DX: C57.01 Malignant neoplasm of right fallopian tube (principal)
CPT/HCPCS: 78815; A9552

== ENCOUNTER 2025-03-25 14:47 | Outpatient (CLI) | payer MEDICARE, BC, SELFPAY ==
--- NOTE | 2025-03-25 15:30 | CRLHL7_ITS ---
For Patients: As a result of the Century Cures Act, medical imaging exams and procedure reports are released immediately into your electronic medical record. You may view this report before your referring provider. If you have questions, please contact your health care provider. EXAM: FDG PET-CT Skull Base to Thighs CLINICAL INFORMATION: 64-year-old woman with history of breast cancer and fallopian tube/ovarian cancer. Restaging. TECHNIQUE: Radiopharmaceutical: 18F-fluorodeoxyglucose (18F-FDG) Dose: 15.13 MilliCurie. Blood glucose: 88 mg/dL. Image acquisition: At approximately 60 minutes following IV tracer administration via an access port, positron emission tomography was performed from the skull base through the mid thigh. Non-contrast low-dose helical CT imaging was performed over the same range without breath-hold for attenuation correction of PET images and anatomic correlation; it is neither sufficient, nor should it be substituted for diagnostic purposes. COMPARISON: FDG PET-CT 12/17/2024 FINDINGS: Mediastinal blood pool FDG uptake: SUVMax 2.8 (Image 94) Liver background parenchymal FDG uptake: SUVMax 4.0 (Image 120) PET Findings: No abnormal focal increased FDG uptake in the left breast. No evidence of FDG avid marquis metastatic disease. No evidence of FDG avid distant metastatic disease. Tracer uptake elsewhere is physiologic. Non-PET findings: Right internal jugular port catheter with the tip terminating in the lower SVC. Cardiomegaly. Left axillary dissection clips. Scattered hepatic photopenic hypodense lesions, some consistent with cysts versus hemangiomas, others too small to characterize but statistically likely cysts. Scattered aortic calcifications. Colonic diverticulosis. Hysterectomy. Grade 1 anterolisthesis L4-L5. Multilevel degenerative changes in the spine. Degenerative changes in the shoulders. IMPRESSION: 1. No evidence of FDG avid locally recurrent neoplasm in the left breast. 2. No evidence of FDG avid marquis or distant metastatic disease. Dictated by Miko Bang MD @ 03/27/2025 1:14:40 PM (Electronically Signed)
== END 2025-03-25 14:48 | disposition home or self-care (01) ==
LOC: RAD 14:48
PROVIDERS: PCP Family Medicine; Visit Provider Internal Medicine Hematology & Oncology
DX: C57.01 Malignant neoplasm of right fallopian tube (principal); C50.912 Malignant neoplasm of unspecified site of left female breast; Z17.0 Estrogen receptor positive status [ER+]; Z79.811 Long term (current) use of aromatase inhibitors; E03.9 Hypothyroidism, unspecified
CPT/HCPCS: 78815; A9552